=== PATIENT | male | born 1945 | race Caucasian/White ===

== ENCOUNTER → 2016-08-27 | Outpatient (CLI) | payer OTHER ==
[~2016-08-27] MED LIST: FINA5TAB4 PO; MOME200A INH; MONT1TAB3 PO; RABE20TA5 PO; RANI300T2 PO; TAMS0.4C38 PO; [UNRECOGNIZED DRUG - CODE] PO
== END | disposition home or self-care (01) ==
LOC: C.LAB1850 11:45
PROVIDERS: ATTEND Internal Medicine Pulmonary Disease
DX: J47.9 Bronchiectasis, uncomplicated (principal)

== ENCOUNTER 2017-03-23 13:04 | Emergency (ER) | payer OTHER ==
[~2017-03-23] VITALS: Ht 190.5 cm; Wt 114.0 kg
[2017-03-23 13:08] VITALS: BP 150/74; PULSE 98; TEMP 36.6; O2SAT 97; Ht 190.5 cm; Wt 114.0 kg
--- NOTE | 2017-03-23 14:51 | EMERGENCY ROOM VISIT NOTE ---
ED Visit Note First contact with patient: 13:23 Chief Complaint: I cut my left little finger. History of Present Illness: Mr. Hartman is a 71-year-old white male who ambulates into the ED complaining of a left little finger laceration. Patient reports approximately one hour ago he was cutting an apple with a kitchen knife and accidentally cut the palmar aspect of the left little finger. He reports he control bleeding and went to the local [facility] and was told he needed to come the emergency department for further evaluation and care. Associated with his laceration patient reports a mild stinging sensation over the laceration. He rates his discomfort 2/10. The pain is nonradiating. Pain worsens with palpation. He has not identified any alleviating factors related to the pain. He has not taken any medications for pain prior to arrival at the hospital. Associated with his symptoms he reports he has a mild tingling sensation within the finger. He denies any finger weakness. Review of Systems: As noted above in history of present illness. Past Medical History: (1) Asthma, Unspecified (2) Bronchitis (3) Esophageal Reflux (4) Ulcerative colitis (5) Urethral Stricture Nos Surgical Problems: (1) History of bronchoscopy Current Medications: Medications Dose Route/Sig Max Daily Dose Days Date Category Probiotic/Prebiotic (Bacillus Coagulans-Inulin) 1 Cap Cap 1 Cap PO DAILY 04/24/15 Reported Zantac (Ranitidine HCl) 300 Mg Tab 300 Mg PO HS 04/24/15 Reported Dulera 200/5 Mcg (Mometasone Furoate-Formoterol) 1 Aer Aer 2 Puffs INH BID 07/06/14 Reported Proscar (Finasteride) 5 Mg Tab 5 Mg PO DAILY 07/06/14 Reported Singulair (Montelukast Sodium) 10 Mg Tab 10 Mg PO DAILY 07/06/14 Reported Aciphex (Rabeprazole Sodium) 20 Mg Tab 20 Mg PO DAILYBB 07/06/14 Reported Flomax (Tamsulosin Hcl) 0.4 Mg Cap 0.4 Mg PO HS 07/06/14 Reported Allergies to Medications: Omeprazole. Social History: Patient is currently retired; he feels safe in his home environment; he denies tobacco use. Tetanus Immunization Status: Patient reports up-to-date. Physical Examination: Vital Signs: Date Time Temp Pulse Resp B/P (MAP) Pulse Ox O2 Delivery O2 Flow Rate FiO2 03/23/17 13:08 36.6 98 20 150/74 97 Room Air GENERAL: 71-year-old male in no acute distress, nontoxic-appearing, afebrile and hemodynamically stable. NEUROLOGICAL: Awake, alert and oriented to person, place and time. Answering questions appropriately and following commands. SKIN: Warm, dry and pink. Left Little Finger: Patient has 3 small superficial laceration over the palmar asses of the finger measuring approximately 3.6 cm. Minimal active bleeding. LEFT LITTLE FINGER: Soft tissue injury as noted above. No gross bony deformity. No tenderness over the MCP, PIP and DIP joint. Full range of motion and muscle strength in the MCP, PIP and DIP joint against resistance. Throughout the finger the skin was warm and pink and capillary refill is brisk. He was able to the stinger slight sensations to all dermatomes of the finger. ED Course: Patient is assessed as noted above. Wound Repair: Complexity: Basic Verbal consent was obtained after the risks and benefits were explained. The skin was prepped with betadine and a sterile field set. The wound was explored for foreign bodies and none found. Copious irrigation was performed using sterile saline. With direct pressure the bleeding subsided. Debridement was not performed. The wound edges were approximated using Steri-Strips Hemostasis and excellent approximation was achieved. Sterile dressing applied. No complications and the patient tolerated the procedure well. Patient was educated about tonight's findings and instructed on his treatment plan; he verbalizes understanding and agreement with this plan. Clinical Impression: Laceration of the left little finger. Disposition: Patient discharged home in stable condition; prior to departure he was reassessed and subjectively reported he was pain-free. Plan: Comfort measures, wound care and signs of infection were discussed with the patient. Patient was encouraged to follow-up with PCP or return to the ED for any signs of infection or any new/concerning symptoms.
== END 2017-03-23 14:04 | disposition home or self-care (01) ==
LOC: C.EDB 13:06 → C.EDD 14:04
DX: S61.217A Laceration without foreign body of left little finger without damage to nail, initial encounter (principal); W26.0XXA Contact with knife, initial encounter

== ENCOUNTER 2023-09-25 15:51 | Inpatient (IN) ==
[2023-09-25 16:36] LABS: Basophils # (auto) 0.02 K/uL (0.00-0.20); Basophils % (auto) 0.2 %; Eosinophils # (auto) 0.04 K/uL (0.00-0.50); Eosinophils % (auto) 0.3 %; Hematocrit (blood only) 45.8 % (42.0-52.0); Hemoglobin 15.9 g/dl (14.0-18.0); Immature Granulocytes # (auto) 0.05 K/uL (0.01-0.20); Immature Granulocytes % (auto) 0.4 %; Lymphocytes # (auto) 1.52 K/uL (1.20-3.40); Lymphocytes % (auto) 12.8 %; Mean Corpuscular Hemoglobin 30.9 pg (25.0-34.0); Mean Corpuscular Hgb Conc 34.7 g/dL (32.0-36.0); Mean Corpuscular Volume 88.9 fL (80.0-100.0); Mean Platelet Volume 9.8 fL (9.4-12.4); Monocytes # (auto) 1.21 K/uL (0.11-0.59); Monocytes % (auto) 10.2 %; Neutrophils # (auto) 9.08 K/uL (1.40-6.50); Neutrophils % (auto) 76.1 %; Platelet Count 208 K/uL (130-400); RDW Coefficient of Variation 12.9 % (11.5-14.5); RDW Standard Deviation 42.3 fL (36.4-46.3); Red Blood Count 5.15 M/uL (4.70-6.10); White Blood Count 11.92 K/ul (4.8-10.8)
--- NOTE | 2023-09-25 16:42 | Electrocardiogram Report ---
Test Reason : Blood Pressure : / mmHG Vent. Rate : 084 BPM Atrial Rate : 084 BPM P-R Int : 154 ms QRS Dur : 094 ms QT Int : 368 ms P-R-T Axes : 073 085 066 degrees QTc Int : 434 ms Normal sinus rhythm Normal ECG When compared with ECG of 29-AUG-2022 10:06, No significant change was found Confirmed by Romel Fair ([id number]) on 09/25/2023 4:41:55 PM Referred By: Confirmed By:Romel Fair
[2023-09-25 16:57] LABS: Albumin Globulin Ratio 1.3 (0.9-2); Albumin Level 4.3 gm/dl (3.4-5.0); BUN Creatinine Ratio 25.9 (10-20); Bilirubin,Total 0.7 mg/dl (0.2-1.0); Calcium 9.2 mg/dl (8.6-10.3); Creatinine Clr Calc Pharmacy 94.1 ml/min; Est GFR (African American) 100.8 ml/min; Est GFR (Non-African American) 86.9 ml/min; Globulin 3.3 gm/dl (2.5-4.0); Magnesium 2.1 mg/dl (1.7-2.4); Potassium 4.4 mmol/L (3.5-5.1); Total Protein 7.6 gm/dl (6.0-8.3)
[2023-09-25 17:02] LABS: Troponin I High Sensitivity 7.8 pg/ml (0-20)
[2023-09-25 17:16] LABS: Partial Thromboplastin Time 26 Seconds (21-31); Prothrombin Time 10.8 Seconds (9.0-12.0)
--- NOTE | 2023-09-25 17:54 | Emergency Department Note ---
History of Present Illness General Chief complaint: Urinary Symptoms Stated complaint: UTI, NEEDS DIFFERENT MEDS/NOT WORKING, DOC REF Time Seen by Provider: 09/25/23 17:53 History of Present Illness Maximum Pain Intensity: 6 NAME: HARIS HERNANDEZ AGE: 77 SEX: M : 1945 ARRIVES VIA: Walk-In INFORMANT: Patient ED PROVIDER(S): THOMAS Bai, Domenico Crawford MD The patient is a 77-year-old male who arrives to the emergency department for evaluation of urinary tract infection with pseudomonal growth. The patient was contacted by the emergency department pharmacist, to return to the emergency department for IV antibiotic treatment and admission. The patient arrived, and was placed in a room for assessment and workup. The patient also has an indwelling Ramires catheter, and notes some hematuria after the Ramires catheter bag was placed to low on his leg causing slight trauma to the urinary tract. The patient denies pain, however he notes some bleeding from the urinary meatus. He denies fever, or other signs of infection. Home Medications Medication Instructions Recorded Confirmed Type finasteride 5 mg tablet 5 mg PO QAM 07/21/19 09/25/23 History montelukast 10 mg tablet 10 mg PO QAM 07/21/19 09/25/23 History tamsulosin 0.4 mg capsule 0.4 mg PO QPM 07/21/19 09/25/23 History mometasone-formoterol HFA 200 1 puff inhalation BID PRN 08/07/20 09/25/23 History mcg-5 mcg/actuation aerosol inhaler Shortness Of Breath Or Wheezing [id number]-thumidhn-yanqcoem 1 drp ophthalmic (eye) TID PRN Dry 08/29/22 09/25/23 History 80 0.5 %-1 %-0.5 % eye drops Eyes vit C 250 mg-E 90 mg-zinc 40 1 tab PO BID 08/29/22 09/25/23 History mg-copper 1 [id number]-[id number] chew tablet (PreserVision AREDS-2) acetaminophen 500 mg tablet 1,000 mg PO Q8H PRN Pain 09/09/23 09/25/23 History Allergies Allergy/AdvReac Type Severity Reaction Status Date / Time celecoxib [From Celebrex] AdvReac Intermediate Diarrhea Verified 09/25/23 18:43 duloxetine AdvReac Intermediate Chest Verified 09/25/23 18:43 tightness, diarrhea gabapentin AdvReac Intermediate dried out Verified 09/25/23 18:43 tear ducts omeprazole AdvReac Intermediate constipatio Verified 09/25/23 18:43 n pregabalin [From Lyrica] AdvReac Intermediate dried out Verified 09/25/23 18:43 tear ducts sulfamethoxazole AdvReac Intermediate constipatio Verified 09/25/23 18:43 [From Bactrim] n trimethoprim [From Bactrim] AdvReac Intermediate constipatio Verified 09/25/23 18:43 n Goat Milk Allergy Severe ANAPHYLAXIS Uncoded 09/25/23 18:43 Past Med/Surg History Problem List (Updated 09/25/23 @ 21:53 by THOMAS Ochoa) Acute urinary retention (Acute) Bladder outlet obstruction (Acute) Abnormal CT scan of lung Urinary tract infection (Acute) Urinary retention (Acute) Urethral stricture (Acute) Constipation (Acute) Complication of catheter (Acute) Complication of catheter (Acute) Back strain (Acute) Back pain (Acute) BPH (benign prostatic hypertrophy) (Acute) Abdominal pain (Acute) Medical History Hx of colonic polyp History of urinary retention 2015, prior to his TURP procedure History of herniated intervertebral disc no sx, therapy only Hx of bronchitis hx ~2009, given his inhaler at this time, has not used since he has bronchitis Macular degeneration Hx of ulcerative colitis no since BPH (benign prostatic hyperplasia) Osteoarthritis History of allergic rhinitis Surgical History Hx of colonoscopy Hx of eye surgery left eye, for "lazy" eye History of bronchoscopy back in the ; for a foreign body in his lungs S/P [facility]P 2015, [facility], tendon reattachment surgery History of dilation of urethra (~2000) Family History Father Cerebral infarction due to occlusion of cerebellar artery Social History Smoking Status: Unknown if ever smoked Second Hand Exposure: No; Do You Dip or Chew Tobacco: No; Hx Alcohol Use: Yes Hx Substance Use: No Preferred Language: Divehi Communication Ability: Effective Retail Sales Teammate Required: No Beliefs That Will Affect Care: None marital status: Current Living Situation: Spouse current occupational status: retired Feels Safe at Home: Yes Assistive Devices: Brace/Splint/Immobilizer and Glasses Physical Exam Vital Signs Vital Signs - 24 hr 09/25/23 15:53 09/25/23 19:09 09/25/23 19:12 Temperature 36.3 C L 36.6 C Temperature Source Oral Oral Pulse Rate 91 H 77 Pulse Rate [Apical] 72 Pulse Rhythm [Apical] Regular Pulse Strength [Apical] Normal Respiratory Rate 19 18 Respiratory Effort / Characteristics Non-Labored Spontaneous Non-Labored Spontaneous Respiratory Depth Normal Normal Respiratory Pattern Regular Blood Pressure 126/83 Blood Pressure [Left Arm] 153/89 H Blood Pressure Mean 97 Blood Pressure Mean [Left Arm] 110 Pulse Oximetry 97 98 Oxygen Delivery Method Room Air Room Air Sepsis Recent Fever Within 48 Hours No Sepsis New/Unexplained Change in Mental Status N/A Sepsis Action Taken by Nursing No Action Required VITALS: Vitals are noted on the nurse's note and reviewed by myself. Vital signs stable. GENERAL: 77-year-old male, in no acute distress, nondiaphoretic, well-developed well-nourished. SKIN: The skin was without rashes, erythema, edema, or bruising. HEAD: Normocephalic atraumatic. HEART: Regular rate and rhythm without murmurs gallops or rubs. LUNGS: Clear to auscultation bilaterally without wheezes, rales or rhonchi. No retractions or accessory muscle use. ABDOMEN: Positive bowel sounds x 4. Soft, nontender, without masses or organomegaly. Martinez sign negative. No guarding or rebound tenderness. Indwelling Ramires catheter, blood crusting surrounding the urine meatus. MUSCULOSKELETAL: No muscle atrophy, erythema, or edema noted. Full range of motion without joint tenderness in all extremities. No tenderness to palpation. Normal gait. Strength 5/5 throughout. NEURO: Patient was alert and oriented to person place and time. No focal neurological deficits. Course Administered Medications Meropenem 500 mg/ Syringe 10 mls @ 2 mls/min IV Q8H [facility]; Protocol Stop: 09/27/23 18:29 Last Admin: 09/25/23 20:03 Dose: 2 mls/min Documented By: PATRIC Discontinued Medications Ciprofloxacin (Cipro / D5w) 400 mg in 200 mls @ 100 mls/hr IV NOW STA; Protocol Stop: 09/25/23 19:53 Last Admin: 09/25/23 18:45 Dose: Not Given Documented By: TASHA Medical Decision Making Differential Diagnosis Urinary tract infection, hematuria, trauma, abscess, as well as other pathologies. Medical Records Attestation: I reviewed the patient's medical records. Home Medications Current Medication List: was personally reviewed by me Laboratory Data Attestation: I reviewed the patient's lab results. Leukocytosis 11.9 to, stable hemoglobin and hematocrit, no electrolyte abnormalities, urinalysis shows a positive for infection with culture growing Pseudomonas. 09/25/23 16:09 09/25/23 16:09 Lab Results 09/25/23 Range/Units 16:09 WBC 11.92 H (4.8-10.8) K/ul RBC 5.15 (4.70-6.10) M/uL Hgb 15.9 (14.0-18.0) g/dl Hct 45.8 (42.0-52.0) % MCV 88.9 (80.0-100.0) fL MCH 30.9 (25.0-34.0) pg MCHC 34.7 (32.0-36.0) g/dL RDW Std Deviation 42.3 (36.4-46.3) fL RDW Coeff of Maddy 12.9 (11.5-14.5) % Plt Count 208 (130-400) K/uL MPV 9.8 (9.4-12.4) fL Immature Gran % (Auto) 0.4 % Neut % (Auto) 76.1 % Lymph % (Auto) 12.8 % Stark % (Auto) 10.2 % Eos % (Auto) 0.3 % Baso % (Auto) 0.2 % Neut # (Auto) 9.08 H (1.40-6.50) K/uL Lymph # (Auto) 1.52 (1.20-3.40) K/uL Stark # (Auto) 1.21 H (0.11-0.59) K/uL Eos # (Auto) 0.04 (0.00-0.50) K/uL Baso # (Auto) 0.02 (0.00-0.20) K/uL Immature Gran # (Auto) 0.05 (0.01-0.20) K/uL PT 10.8 (9.0-12.0) Seconds INR 1.0 (0.9-1.1) APTT 26 (21-31) Seconds PTT Ratio 1.0 Sodium 134 L (136-145) mmol/L Potassium 4.4 (3.5-5.1) mmol/L Chloride 105 (98-107) mmol/L Carbon Dioxide 21 (21-32) mmol/L Anion Gap 8 (3-11) BUN 21 (6-23) mg/dl Creatinine 0.81 (0.6-1.4) mg/dl Est Cr Clr Drug Dosing 94.1 ml/min Est GFR ( Amer) 100.8 ml/min Est GFR (Non-Af Amer) 86.9 ml/min BUN/Creatinine Ratio 25.9 H (10-20) Glucose 92 (70-99(Fasting)) mg/dl Lactate 1.1 (0.4-2.0) mmol/L Calcium 9.2 (8.6-10.3) mg/dl Magnesium 2.1 (1.7-2.4) mg/dl Total Bilirubin 0.7 (0.2-1.0) mg/dl AST 16 (13-39) U/L ALT 15 (7-52) U/L Alkaline Phosphatase 66 (34-104) U/L Troponin I High Sens 7.8 (0-20) pg/ml Total Protein 7.6 (6.0-8.3) gm/dl Albumin 4.3 (3.4-5.0) gm/dl Globulin 3.3 (2.5-4.0) gm/dl Albumin/Globulin Ratio 1.3 (0.9-2) Procalcitonin 0.04 (0-0.5) ng/ml MDM Narrative The patient is a 77-year-old male who arrives to the emergency department for the above-stated complaint. Upon examination the patient is mildly confused about the process for admission to the hospital. I reassured the patient he returns to the right reason and would need hospital admission for the pseudomonal infection in his urine. Lab work was obtained prior to my assessment, which showed leukocytosis of 11.92, stable hemoglobin and hematocrit, no electrolyte abnormalities. Orders were placed for Ramires catheter irrigation, as well as IV antibiotics. I spoke with case management regarding admission, they facilitated contact with the [facility] hospitalist group. Dr. Ovalle agreed to accept the patient, and recommended meropenem for a IV antibiotic treatment. Please refer to Dr. Ovalle's documentation for further patient care. The patient's case was discussed with Dr. Crawford, who agreed with my evaluation and treatment plan. Impression & Plan Complication of catheter, Urinary tract infection Discharge Plan Visit Data Chief Complaint: Urinary Symptoms Stated Complaint: UTI, NEEDS DIFFERENT MEDS/NOT WORKING, DOC REF ED Provider: Domenico Crawford ED Midlevel Provider: Josephine Myles Discharge Problem: Complication of catheter, Urinary tract infection Patient Disposition: Admitted As Inpatient Discharge Instructions Interventions: ED Discharge Assessment Last Done: 09/25/23 20:26 Forms Stand Alone Forms: My [facility]epron Prescriptions Prescriptions: No Action montelukast 10 mg tablet 10 mg PO QAM finasteride 5 mg tablet 5 mg PO QAM tamsulosin 0.4 mg capsule 0.4 mg PO QPM Patient Comments: takes after dinner mometasone-formoterol 200-5 mcg/actuation HFA aerosol inhaler 1 puff INH BID PRN (Reason: Shortness Of Breath Or Wheezing) [id number] 0.5-1-0.5 % Drops 1 drp OPHTHALMIC (EYE) TID PRN (Reason: Dry Eyes) PreserVision AREDS-2 250-90-40-1 mg Tablet,Chewable 1 tab PO BID acetaminophen 500 mg tablet 1,000 mg PO Q8H PRN (Reason: Pain) Referrals Referrals: John Calderon DO [Primary Care Provider] - Discharge Problem: Complication of catheter Qualifiers: Encounter type: initial encounter Qualified Code(s): T85.9XXA - Unspecified complication of internal prosthetic device, implant and graft, initial encounter Urinary tract infection Qualifiers: Urinary tract infection type: site unspecified Hematuria presence: with hematuria Qualified Code(s): N39.0 - Urinary tract infection, site not specified ; R31.9 - Hematuria, unspecified
[2023-09-25] MEDS: CIPROFLOXACIN / D5W 400 MG/200 ML BAG IV STA (18:45)
--- NOTE | 2023-09-25 18:54 | Emergency Department Note ---
ED Visit Note I was consulted by the Advanced Practice Provider. I personally made/approved the management plan and take responsibility for the patient management. I performed a substantive portion of the visit. This includes the aspects of: -History/Physical -MDM .
--- NOTE | 2023-09-25 19:30 | History & Physical Report ---
Date of Service September 25, 2023 Assessment & Plan (1) Urinary tract infection: Plan 77-year-old male with history of BPH, status post TURP, urethral stricture, polyneuropathy, etc. presenting with Pseudomonas UTI. Urinary tract infection, Pseudomonas, in the setting of urinary retention, BPH, history of urethral stricture Status Ramires catheter placement 09/22 For urinary retention Urine culture On the same day 09/22: Positive for Pseudomonas, sensitive to meropenem, intermediate to fluoroquinolones Blood cultures obtained today: Pending Continue IV meropenem Will likely at least 10 days of IV antibiotic, pending blood cultures Continue Ramires catheter placed on September 22, plan for removal on Thursday, if patient is still in-house, will need urology consult at that point for removal of Ramires catheter and trial of voiding Continue with usual tamsulosin, finasteride Tinea Cruris Lotrimin BID x 10 days Hypertension No known history Likely secondary to stress Plan hydralazine for now Tinea cruris Nystatin cream Polyneuropathy Continue pregabalin DVT prophylaxis SCDs for now Disposition Lives at home History of Present Illness Primary Care Provider: John Calderon, 77-year-old male with history of BPH, status post TURP, urethral stricture, polyneuropathy, etc. presenting with Pseudomonas UTI. Patient presented to the ER [facility] 2 days ago, September 23, 2023 for difficulty with urination. He was found to have a postvoid residual of 500 and decision was made to place a Ramires catheter. There was difficulty with Ramires catheter placement, urologist was consulted, Ramires catheter finally placed and was advised to keep the Ramires catheter until Thursday. Urine cultures also obtained at that point and was prescribed with empiric p.o. Patient called in today as urine culture showed Pseudomonas which is intermediate to ciprofloxacin and levofloxacin. He was started on meropenem at the emergency room. On exam, patient seen resting in bed, sitting up, not in distress, very upset, frustrated, speaking loud voice, " everything was screwed since the beginning" "I have not taken my medications, I have not eaten all day" States he has not been feeling well for the past 3 days. No fevers or chills, no abdominal pain, flank pain, has chronic back pain. Has noted some blood clots in the Ramires catheter bag this morning. Reports itching in bilateral groin areas. No other symptoms. Explained laboratory findings, plan of care with patient in detail and at length-repeatedly. Answered all his questions as well. He is understanding and agreeable with the plan of care RN at the bedside during my exam and interview Patient's also updated over the phone. She verbalized understanding and agreement with the plan of care Allergies Allergy/AdvReac Type Severity Reaction Status Date / Time celecoxib [From Celebrex] AdvReac Intermediate Diarrhea Verified 09/25/23 18:43 duloxetine AdvReac Intermediate Chest Verified 09/25/23 18:43 tightness, diarrhea gabapentin AdvReac Intermediate dried out Verified 09/25/23 18:43 tear ducts omeprazole AdvReac Intermediate constipatio Verified 09/25/23 18:43 n pregabalin [From Lyrica] AdvReac Intermediate dried out Verified 09/25/23 18:43 tear ducts sulfamethoxazole AdvReac Intermediate constipatio Verified 09/25/23 18:43 [From Bactrim] n trimethoprim [From Bactrim] AdvReac Intermediate constipatio Verified 09/25/23 18:43 n Goat Milk Allergy Severe ANAPHYLAXIS Uncoded 09/25/23 18:43 Home Medications Medication Instructions Recorded Confirmed Type finasteride 5 mg tablet 5 mg PO QAM 07/21/19 09/25/23 History montelukast 10 mg tablet 10 mg PO QAM 07/21/19 09/25/23 History tamsulosin 0.4 mg capsule 0.4 mg PO QPM 07/21/19 09/25/23 History mometasone-formoterol HFA 200 1 puff inhalation BID PRN 08/07/20 09/25/23 History mcg-5 mcg/actuation aerosol inhaler Shortness Of Breath Or Wheezing [id number]-enmdocai-dqxhzrsx 1 drp ophthalmic (eye) TID PRN Dry 08/29/22 09/25/23 History 80 0.5 %-1 %-0.5 % eye drops Eyes vit C 250 mg-E 90 mg-zinc 40 1 tab PO BID 08/29/22 09/25/23 History mg-copper 1 ls-xejldv-vckldu chew tablet (PreserVision AREDS-2) acetaminophen 500 mg tablet 1,000 mg PO Q8H PRN Pain 09/09/23 09/25/23 History Past Med/Surg History Problem List (Updated 09/23/23 @ 17:27 by Robb Stafford MD) Acute urinary retention (Acute) Bladder outlet obstruction (Acute) Abnormal CT scan of lung Urinary tract infection (Acute) Urinary retention (Acute) Urethral stricture (Acute) Constipation (Acute) Complication of catheter (Acute) Complication of catheter (Acute) Back strain (Acute) Back pain (Acute) BPH (benign prostatic hypertrophy) (Acute) Abdominal pain (Acute) Medical History Hx of colonic polyp History of urinary retention 2015, prior to his TURP procedure History of herniated intervertebral disc no sx, therapy only Hx of bronchitis hx ~2009, given his inhaler at this time, has not used since he has bronchitis Macular degeneration Hx of ulcerative colitis no since BPH (benign prostatic hyperplasia) Osteoarthritis History of allergic rhinitis Surgical History Hx of colonoscopy Hx of eye surgery left eye, for "lazy" eye History of bronchoscopy back in the ; for a foreign body in his lungs S/P [facility]P 2015, [facility], tendon reattachment surgery History of dilation of urethra (~2000) Family History Father Cerebral infarction due to occlusion of cerebellar artery Social History (Updated 07/11/23 @ 10:23 by Doc Doran PA-C) Smoking Status: Unknown if ever smoked Second Hand Exposure: No; Do You Dip or Chew Tobacco: No; Hx Alcohol Use: Yes Hx Substance Use: No Preferred Language: Kyrgyz Communication Ability: Effective Blue Split Trimmer Required: No Beliefs That Will Affect Care: None marital status: Current Living Situation: Spouse current occupational status: retired Feels Safe at Home: Yes Assistive Devices: Brace/Splint/Immobilizer and Glasses Review of Systems Review of Systems: all noted and negative except for above Physical Exam Physical Exam: General- oriented x 3, not in distress, speaks in sentences with no effort or accessory muscle use Eyes- anicteric Neck- no JVD Lungs- clear breath sounds bilaterally, no rales/wheezes Heart- normal rate, regular rhythm; no murmurs Abdomen- normal bowel sounds, nondistended, soft, nontender Ramires catheter in place-draining yellow urine Positive erythema bilateral inguinal area Extremities- no pretibial edema, no calf tenderness Neuro- alert, oriented x 3; no gross focal neurologic deficits Skin- warm & dry Results & Data Results & Data Vital Signs (Past 12 Hours) Vital Signs Temp Pulse Pulse Resp BP BP Pulse Ox 09/25/23 19:12 77 09/25/23 19:09 36.6 C 72 18 153/89 H 98 09/25/23 15:53 36.3 C L 91 H 19 126/83 97 O2 Del Method 09/25/23 19:12 09/25/23 19:09 Room Air 09/25/23 15:53 Room Air all noted and reviewed including below Code Status & VTE Plan VTE Prophylaxis Plan VTE Prophylaxis will be ordered: Yes (1) Urinary tract infection Hematuria presence: with hematuria Urinary tract infection type: acute cystitis Qualified Code(s): N30.01 - Acute cystitis with hematuria
[2023-09-25] MEDS ORDERED: ARTIFICIAL TEARS OP PRN (19:34)
[2023-09-25] MEDS: MEROPENEM 500 MG in SYRINGE 0 ML IV SCH (20:03)
[2023-09-25] MEDS ORDERED: NON-FORMULARY PATIENT'S OWN MED SCH (21:15)
[2023-09-25] MEDS ORDERED: PROMETHAZINE HCL 12.5 MG in SODIUM CHLORIDE 0.9% 50 ML IV PRN (22:14)
[2023-09-25] MEDS: CEROVITE ADV FORMULA TAB PO SCH (22:31)
[2023-09-25] MEDS: CLOTRIMAZOLE 1% CR 15 GM TUBE EXT SCH (22:31)
[2023-09-25] MEDS ORDERED: POLYETHYLENE (MIRALAX) 17 GM PACK PO PRN (22:51)
[2023-09-25] MEDS: FINASTERIDE 5 MG TAB PO ONE (23:18)
[2023-09-25] MEDS: MONTELUKAST SODIUM 10 MG TABLET PO ONE (23:18)
[2023-09-25] MEDS: TAMSULOSIN HCL 0.4 MG CAP PO SCH (23:18)
[2023-09-25] MEDS: SODIUM CHLORIDE 0.9% 1,000 ML IV SCH (23:19)
[2023-09-25] MEDS: DOCUSATE SODIUM/SENNA 50/8.6MG TAB PO SCH (23:44)
[2023-09-25] MEDS: POLYETHYLENE (MIRALAX) 17 GM PACK PO STA (23:44)
[2023-09-25 23:53] LABS: Appearance Urine Clear (Clear); Bacteria Urine Automated None Seen (None Seen); Bilirubin Urine Negative (Negative); Blood Urine 3+ (Negative); Cast Urine Automated 0-2 /lpf (0-2); Color Urine Yellow; Epithelial Cell Urine Auto 0-2 /hpf (0-2); Glucose Urine UA Negative (Negative); Ketones Urine Trace (Negative); Leukocyte Esterase Urine Trace (Negative); Nitrite Urine Negative (Negative); Protein Urine Negative (Negative); RBC Urine Automated 0-2 /hpf (0-2); Specific Gravity Urine 1.006 (1.000-1.030); Urobilinogen Urine Negative (Negative); WBC Urine Automated 0-5 /hpf (0-5); pH Urine 6.5 (4.5-7.5)
[2023-09-26] MEDS: MEROPENEM 500 MG in SYRINGE 0 ML IV SCH (01:40)
[2023-09-26 06:48] LABS: Calcium 8.6 mg/dl (8.6-10.3); Potassium 4.5 mmol/L (3.5-5.1)
[2023-09-26 06:53] LABS: BUN Creatinine Ratio 23.9 (10-20); Creatinine Clr Calc Pharmacy 113.9 ml/min; Est GFR (African American) 108.9 ml/min
[2023-09-26 07:08] LABS: Basophils # (auto) 0.03 K/uL (0.00-0.20); Basophils % (auto) 0.4 %; Eosinophils # (auto) 0.13 K/uL (0.00-0.50); Eosinophils % (auto) 1.7 %; Hemoglobin 14.5 g/dl (14.0-18.0); Immature Granulocytes # (auto) 0.05 K/uL (0.01-0.20); Immature Granulocytes % (auto) 0.7 %; Lymphocytes # (auto) 1.44 K/uL (1.20-3.40); Lymphocytes % (auto) 18.8 %; Mean Corpuscular Hemoglobin 30.4 pg (25.0-34.0); Mean Corpuscular Hgb Conc 33.7 g/dL (32.0-36.0); Mean Corpuscular Volume 90.1 fL (80.0-100.0); Mean Platelet Volume 10.7 fL (9.4-12.4); Monocytes # (auto) 1.06 K/uL (0.11-0.59); Monocytes % (auto) 13.8 %; Neutrophils # (auto) 4.95 K/uL (1.40-6.50); Neutrophils % (auto) 64.6 %; Platelet Count 175 K/uL (130-400); RDW Standard Deviation 42.7 fL (36.4-46.3); Red Blood Count 4.77 M/uL (4.70-6.10); White Blood Count 7.66 K/ul (4.8-10.8)
[2023-09-26] MEDS ORDERED: FLUTICASONE/VILANTEROL 100/25MCG 14 PUFFS/INHALER INH SCH (09:00)
[2023-09-26] MEDS: FINASTERIDE 5 MG TAB PO SCH (09:02)
[2023-09-26] MEDS: MONTELUKAST SODIUM 10 MG TABLET PO SCH (09:02)
[2023-09-26] MEDS: PRESERVISION PO SCH (09:40)
[2023-09-26] MEDS: ARTIFICIAL TEARS OP SCH (09:40)
--- NOTE | 2023-09-26 16:02 | Hospitalist Progress Note ---
Date of Service September 26, 2023 Assessment & Plan (1) Urinary tract infection: Plan 77-year-old male with history of BPH, status post TURP, urethral stricture, polyneuropathy, etc. presenting with Pseudomonas UTI. Complicated urinary tract infection Urinary retention H/O BPH, TURP, urethral stricture --Urine culture growing Pseudomonas --Blood culture pending Continue IV meropenem Continue Ramires catheter Scheduled to follow-up with urology as outpatient for voiding trial on Thursday Continue tamsulosin, finasteride Tinea Cruris continue Lotrimin BID Hypertension No known history Likely situational Blood pressure mildly elevated Monitor BP Will consider adding antihypertensives if remains persistently elevated Polyneuropathy Continue pregabalin DVT Px: SCDs for now Disposition PT/OT prior to discharge Admission and Anticipated Discharge Date Admission Date: September 25, 2023 Subjective Patient is seen and examined at bedside I feel "rotted" Had multiple complaints Denies chest pain, dyspnea Blood cultures pending Review of Systems Review of Systems: All systems reviewed & are unremarkable except as noted in Subjective Physical Exam Physical Exam: Physical Exam: Vitals signs as noted above General Appearance:Moderately built and nourished, no apparent distress Head: normocephalic, Atraumatic Eyes: normal inspection, EOMI Neck: supple, Trachea midline Respiratory/Chest: Normal breath sounds, CTA, No accessory muscle use Cardiovascular: S1, S2, No murmur Abdomen/GI:Soft, Non tender, Bowel sounds present Extremities/Musculoskeletal:normal inspection, no edema : B/L groin rash Neurologic/Psych:AAOX3, grossly no focal neurological deficits Skin: normal color, warm Results & Data Results & Data Vital Signs (Past 12 Hours) Vital Signs Temp Pulse Resp BP BP Pulse Ox O2 Del Method 09/26/23 14:41 36.6 C 70 18 142/73 H 97 Room Air 09/26/23 08:14 36.5 C 72 16 177/88 H 98 Room Air Laboratory Results Short CBC 09/25/23 09/26/23 Range/Units 16:09 05:31 WBC 11.92 H 7.66 (4.8-10.8) K/ul Hgb 15.9 14.5 (14.0-18.0) g/dl Hct 45.8 43.0 (42.0-52.0) % Plt Count 208 175 (130-400) K/uL BMP 09/25/23 09/26/23 16:09 05:31 Sodium 134 L 138 Potassium 4.4 4.5 Chloride 105 108 H Carbon Dioxide 21 23 BUN 21 16 Creatinine 0.81 0.67 Glucose 92 83 Calcium 9.2 8.6 Liver Function 09/25/23 Range/Units 16:09 Total Bilirubin 0.7 (0.2-1.0) mg/dl AST 16 (13-39) U/L ALT 15 (7-52) U/L Alkaline Phosphatase 66 (34-104) U/L Albumin 4.3 (3.4-5.0) gm/dl Urine 09/25/23 Range/Units 23:30 Urine Color Yellow Urine Appearance Clear (Clear) Urine pH 6.5 (4.5-7.5) Ur Specific [place] 1.006 (1.000-1.030) Urine Protein Negative (Negative) Urine Glucose (UA) Negative (Negative) (1) Urinary tract infection Hematuria presence: with hematuria Urinary tract infection type: site unspe cified Qualified Code(s): N39.0 - Urinary tract infection, site not specified; R31.9 - Hematuria, unspecified
[2023-09-27 06:16] LABS: Hematocrit (blood only) 44.4 % (42.0-52.0); Hemoglobin 14.8 g/dl (14.0-18.0); Mean Corpuscular Hgb Conc 33.3 g/dL (32.0-36.0); Mean Corpuscular Volume 90.1 fL (80.0-100.0); Mean Platelet Volume 9.9 fL (9.4-12.4); Platelet Count 185 K/uL (130-400); RDW Coefficient of Variation 13.2 % (11.5-14.5); RDW Standard Deviation 43.2 fL (36.4-46.3); Red Blood Count 4.93 M/uL (4.70-6.10)
[2023-09-27 06:45] LABS: BUN Creatinine Ratio 21.3 (10-20); Calcium 8.4 mg/dl (8.6-10.3); Creatinine Clr Calc Pharmacy 95.4 ml/min; Est GFR (African American) 101.3 ml/min; Est GFR (Non-African American) 87.4 ml/min; Potassium 4.2 mmol/L (3.5-5.1)
[2023-09-27] MEDS: ACETAMINOPHEN 500 MG TAB PO PRN (07:55)
--- NOTE | 2023-09-27 16:27 | Hospitalist Progress Note ---
Date of Service September 27, 2023 Assessment & Plan (1) Urinary tract infection: Plan 77-year-old male with history of BPH, status post TURP, urethral stricture, polyneuropathy, etc. presenting with Pseudomonas UTI. Complicated urinary tract infection Urinary retention H/O BPH, TURP, urethral stricture --Urine culture grew Pseudomonas --Blood culture negative to date Continue IV meropenem Continue Ramires catheter Scheduled to follow-up with urology as outpatient for voiding trial on Thursday Continue tamsulosin, finasteride Will consider to perform voiding trial tomorrow Will need ultrasound-guided IV line for IV antibiotics on discharge Tinea Cruris continue Lotrimin BID Hypertension No known history Likely situational Monitor BP Blood pressure much better today Polyneuropathy Continue pregabalin DVT Px: SCDs for now Disposition PT/OT prior to discharge Admission and Anticipated Discharge Date Admission Date: September 25, 2023 Subjective Patient is seen and examined at bedside Sitting in chair during my encounter States having some right foot pain which is scheduled for surgery States feeling a lot better today Denies chest pain, dyspnea Review of Systems Review of Systems: All systems reviewed & are unremarkable except as noted in Subjective Physical Exam Physical Exam: Physical Exam: Vitals signs as noted above General Appearance:Moderately built and nourished, no apparent distress Head: normocephalic, Atraumatic Eyes: normal inspection, EOMI Neck: supple, Trachea midline Respiratory/Chest: Normal breath sounds, CTA, No accessory muscle use Cardiovascular: S1, S2, No murmur Abdomen/GI:Soft, Non tender, Bowel sounds present Extremities/Musculoskeletal:normal inspection, no edema : B/L groin rash Neurologic/Psych:AAOX3, grossly no focal neurological deficits Skin: normal color, warm Results & Data Results & Data Vital Signs (Past 12 Hours) Vital Signs Temp Pulse Resp BP Pulse Ox O2 Del Method 09/27/23 15:46 36.6 C 67 18 135/77 96 Room Air 09/27/23 07:44 36.4 C L 68 18 149/84 H 97 Room Air Laboratory Results Short CBC 09/27/23 Range/Units 05:55 WBC 8.30 (4.8-10.8) K/ul Hgb 14.8 (14.0-18.0) g/dl Hct 44.4 (42.0-52.0) % Plt Count 185 (130-400) K/uL BMP 09/27/23 05:55 Sodium 137 Potassium 4.2 Chloride 109 H Carbon Dioxide 23 BUN 17 Creatinine 0.80 Glucose 88 Calcium 8.4 L (1) Urinary tract infection Hematuria presence: with hematuria Urinary tract infection type: site unspecified Qualified Code(s): N39.0 - Urinary tract infection, site not specified; R31.9 - Hematuria, unspecified
[2023-09-28 07:02] LABS: Hematocrit (blood only) 43.7 % (42.0-52.0); Hemoglobin 14.9 g/dl (14.0-18.0); Mean Corpuscular Hemoglobin 30.5 pg (25.0-34.0); Mean Corpuscular Hgb Conc 34.1 g/dL (32.0-36.0); Mean Corpuscular Volume 89.4 fL (80.0-100.0); Platelet Count 199 K/uL (130-400); RDW Coefficient of Variation 12.8 % (11.5-14.5); RDW Standard Deviation 42.3 fL (36.4-46.3); Red Blood Count 4.89 M/uL (4.70-6.10); White Blood Count 8.21 K/ul (4.8-10.8)
[2023-09-28 07:37] LABS: BUN Creatinine Ratio 21.3 (10-20); Calcium 8.4 mg/dl (8.6-10.3); Creatinine Clr Calc Pharmacy 85.7 ml/min; Est GFR (African American) 96.9 ml/min; Est GFR (Non-African American) 83.6 ml/min; Potassium 4.2 mmol/L (3.5-5.1)
--- NOTE | 2023-09-28 10:53 | Urology Consultation ---
Date of Consultation September 28, 2023 Assessment & Plan (1) Acute urinary retention: (2) Urinary tract infection: (3) Urethral stricture: 77-year-old male with recent urinary retention and Ramires catheter placed by urology admitted for IV antibiotics for acute UTI. Patient is afebrile and hemodynamically stable Labs todayno leukocytosis, normal renal function He is on IV Zosyn for Pseudomonas UTI Ramires placed on 09/[address] Magana after cystoscopy and urethral dilation for bulbar urethral stricture Ramires patent and draining appropriately Recommend maintain Ramires catheter for now during treatment of acute UTI Continue with supportive care, antibiotics, and medical management per hospital medicine service Will reschedule outpatient voiding trial with our office for next week He can then follow-up with his established urologist, Dr. Dietz, for ongoing management of stricture will sign off, please contact our service with any additional questions or concerns History of Present Illness Attending Physician: Emory Yee MD History of Present Illness This is a 77-year-old male with a history of TURP who recently presented to the emergency department on 09/23/2023 for constipation and urinary retention. Urology was consulted for difficult Ramires catheter placement. Dr. Magana placed a 16 [place] catheter at bedside with cystoscope and after urethral dilation. He was discharged from the ED with Ciprofloxacin. Urine culture grew Pseudomonas, intermediate to ciprofloxacin and levofloxacin. Patient was contacted by the pharmacist to return to the emergency department for IV antibiotic treatment and admission. Urology is consulted for urinary retention. Patient was scheduled for outpatient voiding trial today. Labs todaycreatinine 0.89, WBC 8.21, hemoglobin 14.9. He was treated with meropenem upon arrival, now on IV Zosyn. Patient seen and examined at bedside. He is awake and resting in bed. Ramires is patent and draining appropriately. Denies fever or chills. He reports he is pending foot/ankle surgery this week. Allergies Allergy/AdvReac Type Severity Reaction Status Date / Time celecoxib [From Celebrex] AdvReac Intermediate Diarrhea Verified 09/25/23 18:43 duloxetine AdvReac Intermediate Chest Verified 09/25/23 18:43 tightness, diarrhea gabapentin AdvReac Intermediate dried out Verified 09/25/23 18:43 tear ducts omeprazole AdvReac Intermediate constipatio Verified 09/25/23 18:43 n pregabalin [From Lyrica] AdvReac Intermediate dried out Verified 09/25/23 18:43 tear ducts sulfamethoxazole AdvReac Intermediate constipatio Verified 09/25/23 18:43 [From Bactrim] n trimethoprim [From Bactrim] AdvReac Intermediate constipatio Verified 09/25/23 18:43 n Goat Milk Allergy Severe ANAPHYLAXIS Uncoded 09/25/23 18:43 Home Medications Medication Instructions Recorded Confirmed Type finasteride 5 mg tablet 5 mg PO QAM 07/21/19 09/25/23 History montelukast 10 mg tablet 10 mg PO QAM 07/21/19 09/25/23 History tamsulosin 0.4 mg capsule 0.4 mg PO QPM 07/21/19 09/25/23 History mometasone-formoterol HFA 200 1 puff inhalation BID PRN 08/07/20 09/25/23 History mcg-5 mcg/actuation aerosol inhaler Shortness Of Breath Or Wheezing uqjtyppwjfpoabzghpmtqv-iombrtfs-lciraauq 1 drp ophthalmic (eye) TID PRN Dry 08/29/22 09/25/23 History 80 0.5 %-1 %-0.5 % eye drops Eyes vit C 250 mg-E 90 mg-zinc 40 1 tab PO BID 08/29/22 09/25/23 History mg-copper 1 [id number] chew tablet (PreserVision AREDS-2) acetaminophen 500 mg tablet 1,000 mg PO Q8H PRN Pain 09/09/23 09/25/23 History Patient History Medical History Hx of colonic polyp History of urinary retention 2015, prior to his TURP procedure History of herniated intervertebral disc no sx, therapy only Hx of bronchitis hx ~2009, given his inhaler at this time, has not used since he has bronchitis Macular degeneration Hx of ulcerative colitis no since BPH (benign prostatic hyperplasia) Osteoarthritis History of allergic rhinitis Surgical History Hx of colonoscopy Hx of eye surgery left eye, for "lazy" eye History of bronchoscopy back in the ; for a foreign body in his lungs S/P TURP 2015, [facility] H/O knee surgery left, tendon reattachment surgery History of dilation of urethra (~2000) Family History Father Cerebral infarction due to occlusion of cerebellar artery Social History Smoking Status: Never smoker Second Hand Exposure: No; Do You Dip or Chew Tobacco: No; Hx Alcohol Use: Yes Hx Substance Use: No Preferred Language: Korean Communication Ability: Effective Communication Ability Comment: Difficulty finding words when upset Channel Manager Required: No Beliefs That Will Affect Care: None marital status: Current Living Situation: Spouse current occupational status: retired Feels Safe at Home: Yes Safety Concerns: Feels Safe At This Time Assistive Devices: Brace/Splint/Immobilizer and Glasses Review of Systems Review of Systems: All systems reviewed & are unremarkable except as noted in HPI & below Physical Exam Constitutional: well developed and well nourished; no acute distress Respiratory: normal respiratory effort; no respiratory distress and no labored breathing Gastrointestinal (Abdomen): Inspection/Auscultation: abdomen normal to inspection Musculoskeletal: Head/Neck/Chest: normocephalic Neurologic: moves all extremities and awake Psychiatric: Orientation: alert and oriented to person Genitourinary: Ramires patent and draining clear yellow urine Results & Data Vital Signs (Past 12 Hours) Vital Signs Temp Pulse Resp BP Pulse Ox O2 Del Method 09/28/23 06:56 36.4 C L 78 18 164/85 H 96 Room Air PG Care Time/CCT Total # of Minutes Spent Total Time Spent with Patient: Total time spent is greater than 50% in coordination of care (as documented) at patient's floor/unit and/or counseling patient: Coding Level of Care Code 42494 INT INP/OBS CARE 2/55MIN Diagnoses Acute urinary retention R33.8 Urinary tract infection N39.0; R31.9 Hematuria presence: with hematuria Urinary tract infection type: site unspecified Urethral stricture N35.9 (2) Urinary tract infection Hematuria presence: with hematuria Urinary tract infection type: site unspecified Qualified Code(s): N39.0 - Urinary tract infection, site not specified; R31.9 - Hematuria, unspecified
[2023-09-28] MEDS: LOSARTAN POTASSIUM 25 MG TAB PO SCH (11:14)
[2023-09-28] MEDS: ADVANCED PROBIOTIC 625 MG CAPSULE PO SCH (11:15)
[2023-09-28] MEDS: PIPER/TAZO 4.5g in D5W MINI-B 100 ML IV SCH (13:20)
--- NOTE | 2023-09-28 17:55 | Hospitalist Progress Note ---
Date of Service September 28, 2023 Assessment & Plan (1) Urinary tract infection: Plan 77-year-old male with history of BPH, status post TURP, urethral stricture, polyneuropathy, etc. presenting with Pseudomonas UTI. Complicated urinary tract infection Urinary retention H/O BPH, TURP, urethral stricture --Urine culture grew Pseudomonas --Blood culture negative to date Continue IV meropenem>>changed to Zosyn Continue Ramires catheter Continue tamsulosin, finasteride Requested for ultrasound-guided IV line placement Appreciate Urology input Continue Ramires catheter for now Needs follow-up with urology on discharge Tinea Cruris continue Lotrimin BID Hypertension No known history Started on losartan 25 mg daily Monitor BP Polyneuropathy Continue pregabalin DVT Px: SCDs Heparin SQ Disposition Likely home with home health Admission and Anticipated Discharge Date Admission Date: September 25, 2023 Subjective Patient is seen and examined at bedside Offers no new complaints Right foot pain is controlled Denies chest pain, dyspnea, dizziness, nausea, vomiting, abdominal pain Review of Systems Review of Systems: All systems reviewed & are unremarkable except as noted in Subjective Physical Exam Physical Exam: Physical Exam: Vitals signs as noted above General Appearance:Moderately built and nourished, no apparent distress Head: normocephalic, Atraumatic Eyes: normal inspection, EOMI Neck: supple, Trachea midline Respiratory/Chest: Normal breath sounds, CTA, No accessory muscle use Cardiovascular: S1, S2, No murmur Abdomen/GI:Soft, Non tender, Bowel sounds present Extremities/Musculoskeletal:normal inspection, no edema : B/L groin rash Neurologic/Psych:AAOX3, grossly no focal neurological deficits Skin: normal color, warm Results & Data Results & Data Vital Signs (Past 12 Hours) Vital Signs Temp Pulse Resp BP BP Pulse Ox O2 Del Method 09/28/23 15:11 36.4 C L 74 18 122/73 97 Room Air 09/28/23 06:56 36.4 C L 78 18 164/85 H 96 Room Air Laboratory Results Short CBC 09/28/23 Range/Units 06:13 WBC 8.21 (4.8-10.8) K/ul Hgb 14.9 (14.0-18.0) g/dl Hct 43.7 (42.0-52.0) % Plt Count 199 (130-400) K/uL BMP 09/28/23 06:13 Sodium 138 Potassium 4.2 Chloride 107 Carbon Dioxide 25 BUN 19 Creatinine 0.89 Glucose 88 Calcium 8.4 L (1) Urinary tract infection Hematuria presence: with hematuria Urinary tract infection type: site unspecified Qualified Code(s): N39.0 - Urinary tract infection, site not specified; R31.9 - Hematuria, unspecified
[2023-09-28] MEDS: HEPARIN SOD 5,000 UNIT/0.5 ML VIAL SQ SCH (21:26)
[2023-09-29 08:27] LABS: BUN Creatinine Ratio 20.2 (10-20); Calcium 8.5 mg/dl (8.6-10.3); Creatinine Clr Calc Pharmacy 73.4 ml/min; Est GFR (Non-African American) 69.9 ml/min; Potassium 4.5 mmol/L (3.5-5.1)
--- NOTE | 2023-09-29 12:45 | Hospitalist Progress Note ---
Date of Service September 29, 2023 Assessment & Plan (1) Urinary tract infection: Plan 77-year-old male with history of BPH, status post TURP, urethral stricture, polyneuropathy, etc. presenting with Pseudomonas UTI. Complicated urinary tract infection Urinary retention H/O BPH, TURP, urethral stricture --Urine culture grew Pseudomonas --Blood culture negative to date Continue IV meropenem>>changed to Zosyn Continue Ramires catheter Continue tamsulosin, finasteride Appreciate Urology input Continue Ramires catheter until follow-up with urology on discharge Plan to be discharged home with home health today Tinea Cruris continue Lotrimin BID Hypertension No known history Started on losartan 25 mg daily Monitor BP Polyneuropathy Continue pregabalin DVT Px: SCDs Heparin SQ Disposition Home with home health Admission and Anticipated Discharge Date Admission Date: September 25, 2023 Subjective Patient is seen and examined at bedside States feeling well today Offers no new complaints Denies chest pain, dyspnea, dizziness, nausea, vomiting, abdominal pain Plan to be discharged home today Review of Systems Review of Systems: All systems reviewed & are unremarkable except as noted in Subjective Physical Exam Physical Exam: Physical Exam: Vitals signs as noted above General Appearance:Moderately built and nourished, no apparent distress Head: normocephalic, Atraumatic Eyes: normal inspection, EOMI Neck: supple, Trachea midline Respiratory/Chest: Normal breath sounds, CTA, No accessory muscle use Cardiovascular: S1, S2, No murmur Abdomen/GI:Soft, Non tender, Bowel sounds present Extremities/Musculoskeletal:normal inspection, no edema : B/L groin rash Neurologic/Psych:AAOX3, grossly no focal neurological deficits Skin: normal color, warm Results & Data Results & Data Vital Signs (Past 12 Hours) Vital Signs Temp Pulse Resp BP Pulse Ox O2 Del Method 09/29/23 07:34 36.5 C 68 18 142/81 H 97 Room Air Laboratory Results BMP 09/29/23 07:21 Sodium 138 Potassium 4.5 Chloride 106 Carbon Dioxide 26 BUN 21 Creatinine 1.04 Glucose 93 Calcium 8.5 L (1) Urinary tract infection Hematuria presence: with hematuria Urinary tract infection type: site unspecified Qualified Code(s): N39.0 - Urinary tract infection, site not specified; R31.9 - Hematuria, unspecified
--- NOTE | 2023-09-29 12:51 | Discharge Summary ---
Date of Service September 29, 2023 Admission HPI Per Admitting Provider 77-year-old male with history of BPH, status post TURP, urethral stricture, polyneuropathy, etc. presenting with Pseudomonas UTI. Patient presented to the ER [facility] 2 days ago, September 23, 2023 for difficulty with urination. He was found to have a postvoid residual of 500 and decision was made to place a Ramires catheter. There was difficulty with Ramires catheter placement, urologist was consulted, Ramires catheter finally placed and was advised to keep the Ramires catheter until Thursday. Urine cultures also obtained at that point and was prescribed with empiric p.o. Patient called in today as urine culture showed Pseudomonas which is intermediate to ciprofloxacin and levofloxacin. He was started on meropenem at the emergency room. On exam, patient seen resting in bed, sitting up, not in distress, very upset, frustrated, speaking loud voice, " everything was screwed since the beginning" "I have not taken my medications, I have not eaten all day" States he has not been feeling well for the past 3 days. No fevers or chills, no abdominal pain, flank pain, has chronic back pain. Has noted some blood clots in the Ramires catheter bag this morning. Reports itching in bilateral groin areas. No other symptoms. Explained laboratory findings, plan of care with patient in detail and at length-repeatedly. Answered all his questions as well. He is understanding and agreeable with the plan of care RN at the bedside during my exam and interview Patient's also updated over the phone. She verbalized understanding and agreement with the plan of care Admission Exam Per Admitting Provider General- oriented x 3, not in distress, speaks in sentences with no effort or accessory muscle use Eyes- anicteric Neck- no JVD Lungs- clear breath sounds bilaterally, no rales/wheezes Heart- normal rate, regular rhythm; no murmurs Abdomen- normal bowel sounds, nondistended, soft, nontender Ramires catheter in place-draining yellow urine Positive erythema bilateral inguinal area Extremities- no pretibial edema, no calf tenderness Neuro- alert, oriented x 3; no gross focal neurologic deficits Skin- warm & dry Principal Diagnosis Complicated urinary tract infection Urinary retention H/O BPH, TURP, urethral stricture Tinea Cruris Hypertension Discharge Data Allergies Allergy/AdvReac Type Severity Reaction Status Date / Time celecoxib [From Celebrex] AdvReac Intermediate Diarrhea Verified 09/25/23 18:43 duloxetine AdvReac Intermediate Chest Verified 09/25/23 18:43 tightness, diarrhea gabapentin AdvReac Intermediate dried out Verified 09/25/23 18:43 tear ducts omeprazole AdvReac Intermediate constipatio Verified 09/25/23 18:43 n pregabalin [From Lyrica] AdvReac Intermediate dried out Verified 09/25/23 18:43 tear ducts sulfamethoxazole AdvReac Intermediate constipatio Verified 09/25/23 18:43 [From Bactrim] n trimethoprim [From Bactrim] AdvReac Intermediate constipatio Verified 09/25/23 18:43 n Goat Milk Allergy Severe ANAPHYLAXIS Uncoded 09/25/23 18:43 Consultations 09/25/23 18:29 ED Decision to Admit Stat 09/28/23 08:21 Consult Urology Routine Procedures Performed Laboratory Results WBC 8.21 K/ul (4.8-10.8) 09/28/23 06:13 RBC 4.89 M/uL (4.70-6.10) 09/28/23 06:13 Hgb 14.9 g/dl (14.0-18.0) 09/28/23 06:13 Hct 43.7 % (42.0-52.0) 09/28/23 06:13 MCV 89.4 fL (80.0-100.0) 09/28/23 06:13 MCH 30.5 pg (25.0-34.0) 09/28/23 06:13 MCHC 34.1 g/dL (32.0-36.0) 09/28/23 06:13 RDW Std Deviation 42.3 fL (36.4-46.3) 09/28/23 06:13 RDW Coeff of Maddy 12.8 % (11.5-14.5) 09/28/23 06:13 Plt Count 199 K/uL (130-400) 09/28/23 06:13 MPV 10.0 fL (9.4-12.4) 09/28/23 06:13 Immature Gran % (Auto) 0.7 % 09/26/23 05:31 Neut % (Auto) 64.6 % 09/26/23 05:31 Lymph % (Auto) 18.8 % 09/26/23 05:31 Dillon % (Auto) 13.8 % 09/26/23 05:31 Eos % (Auto) 1.7 % 09/26/23 05:31 Baso % (Auto) 0.4 % 09/26/23 05:31 Neut # (Auto) 4.95 K/uL (1.40-6.50) 09/26/23 05:31 Lymph # (Auto) 1.44 K/uL (1.20-3.40) 09/26/23 05:31 Dillon # (Auto) 1.06 K/uL (0.11-0.59) H 09/26/23 05:31 Eos # (Auto) 0.13 K/uL (0.00-0.50) 09/26/23 05:31 Baso # (Auto) 0.03 K/uL (0.00-0.20) 09/26/23 05:31 Immature Gran # (Auto) 0.05 K/uL (0.01-0.20) 09/26/23 05:31 PT 10.8 Seconds (9.0-12.0) 09/25/23 16:09 INR 1.0 (0.9-1.1) 09/25/23 16:09 APTT 26 Seconds (21-31) 09/25/23 16:09 PTT Ratio 1.0 09/25/23 16:09 Sodium 138 mmol/L (136-145) 09/29/23 07:21 Potassium 4.5 mmol/L (3.5-5.1) 09/29/23 07:21 Chloride 106 mmol/L (98-107) 09/29/23 07:21 Carbon Dioxide 26 mmol/L (21-32) 09/29/23 07:21 Anion Gap 6 (3-11) 09/29/23 07:21 BUN 21 mg/dl (6-23) 09/29/23 07:21 Creatinine 1.04 mg/dl (0.6-1.4) 09/29/23 07:21 Est Cr Clr Drug Dosing 73.4 ml/min 09/29/23 07:21 Est GFR ( Amer) 81.0 ml/min 09/29/23 07:21 Est GFR (Non-Af Amer) 69.9 ml/min 09/29/23 07:21 BUN/Creatinine Ratio 20.2 (10-20) H 09/29/23 07:21 Glucose 93 mg/dl (70-99(Fasting)) 09/29/23 07:21 Lactate 1.1 mmol/L (0.4-2.0) 09/25/23 16:09 Calcium 8.5 mg/dl (8.6-10.3) L 09/29/23 07:21 Magnesium 2.1 mg/dl (1.7-2.4) 09/25/23 16:09 Total Bilirubin 0.7 mg/dl (0.2-1.0) 09/25/23 16:09 AST 16 U/L (13-39) 09/25/23 16:09 ALT 15 U/L (7-52) 09/25/23 16:09 Alkaline Phosphatase 66 U/L (34-104) 09/25/23 16:09 Troponin I High Sens 7.8 pg/ml (0-20) 09/25/23 16:09 Total Protein 7.6 gm/dl (6.0-8.3) 09/25/23 16:09 Albumin 4.3 gm/dl (3.4-5.0) 09/25/23 16:09 Globulin 3.3 gm/dl (2.5-4.0) 09/25/23 16:09 Albumin/Globulin Ratio 1.3 (0.9-2) 09/25/23 16:09 Procalcitonin 0.04 ng/ml (0-0.5) 09/25/23 16:09 Urine Color Yellow 09/25/23 23:30 Urine Appearance Clear (Clear) 09/25/23 23:30 Urine pH 6.5 (4.5-7.5) 09/25/23 23:30 Ur Specific [place] 1.006 (1.000-1.030) 09/25/23 23:30 Urine Protein Negative (Negative) 09/25/23 23:30 Urine Glucose (UA) Negative (Negative) 09/25/23 23:30 Urine Ketones Trace (Negative) H 09/25/23 23:30 Urine Blood 3+ (Negative) H 09/25/23 23:30 Urine Nitrite Negative (Negative) 09/25/23 23:30 Urine Bilirubin Negative (Negative) 09/25/23 23:30 Urine Urobilinogen Negative (Negative) 09/25/23 23:30 Ur Leukocyte Esterase Trace (Negative) H 09/25/23 23:30 Urine WBC (Auto) 0-5 /hpf (0-5) 09/25/23 23:30 Urine RBC (Auto) 0-2 /hpf (0-2) 09/25/23 23:30 U Hyaline Cast (Auto) 0-2 /lpf (0-2) 09/25/23 23:30 U Epithel Cells (Auto) 0-2 /hpf (0-2) 09/25/23 23:30 Urine Bacteria (Auto) None Seen (None Seen) 09/25/23 23:30 Hospital Course (1) Urinary tract infection: Plan 77-year-old male with history of BPH, status post TURP, urethral stricture, polyneuropathy, etc. presenting with Pseudomonas UTI. Complicated urinary tract infection Urinary retention H/O BPH, TURP, urethral stricture --Urine culture grew Pseudomonas --Blood culture negative to date Continue IV meropenem>>changed to Zosyn Continue Ramires catheter Continue tamsulosin, finasteride Appreciate Urology input Continue Ramires catheter until follow-up with urology on discharge Plan to be discharged home with home health today Tinea Cruris continue Lotrimin BID Hypertension No known history Started on losartan 25 mg daily Monitor BP Polyneuropathy Continue pregabalin DVT Px: SCDs Heparin SQ Disposition Home with home health Total Time Total Time Spent Total Time Spent (In Minutes): 53 minutes Discharge Plan Discharge Items Patient Disposition: Home - Home Health Services Reason For Visit: PSEUDOMONAS UTI Discharge Diagnosis: Complicated urinary tract infection Urinary retention H/O BPH, TURP, urethral stricture Tinea Cruris Hypertension Activity: Per Instructions section Exercise/Sports: Wait until after follow-up appointment Non-emergency contact: Primary Care Provider and Urologist Call non-emergency contact if: you have any medication questions, your symptoms worsen, your pain is concerning for you and you have a fever Follow-up/Referrals: John Calderon DO [Primary Care Provider] - (Date & Time 10/05/2023 2:20 PM Provider John Calderon DO [facility] ) Diet: Regular Addtl Attending Provider Instructions: Follow-up with your primary care physician Dr. John Calderon in 1 week Follow-up with your urologist next week as scheduled -- Complete the IV antibiotic Zosyn course as prescribed -- Continue Ramires catheter for now as recommended by your urologist. Voiding trial as outpatient -- Your final blood cultures are pending at the time of discharge. Follow-up with your physician for results. --Monitor your blood pressure regularly at home and discuss with your physician for further adjustment of medications as needed Seek immediate medical attention if your symptoms reoccur or worsen Please take all medications as instructed on discharge list below. Please call if you have any questions or problems. You can reach a [facility] hospitalist on duty at [facility] 24 hours a day by calling [phone] Pending Studies at Discharge: Yes Studies:: Blood culture Stand-Alone Forms: My [facility], Smoking Cessation Medications and DC Order Prescriptions: New losartan 25 mg Tablet 25 mg PO QAM Qty: 30 1RF Advanced Probiotic 625 mg (10 billion cell) Capsule 1 cap PO DAILY Qty: 10 0RF clotrimazole 1 % Cream 1 applic EXT BID 14 Days Qty: 30 0RF Rx Instructions: for 14 days Zosyn in dextrose (iso-osm) 4.5 gram/100 mL piggyback 4.5 g IV Q8H 5 Days Continued montelukast 10 mg tablet 10 mg PO QAM finasteride 5 mg tablet 5 mg PO QAM tamsulosin 0.4 mg capsule 0.4 mg PO QPM Patient Comments: takes after dinner mometasone-formoterol 200-5 mcg/actuation HFA aerosol inhaler 1 puff INH BID PRN (Reason: Shortness Of Breath Or Wheezing) [id number] 0.5-1-0.5 % Drops 1 drp OPHTHALMIC (EYE) TID PRN (Reason: Dry Eyes) PreserVision AREDS-2 250-90-40-1 mg Tablet,Chewable 1 tab PO BID acetaminophen 500 mg tablet 1,000 mg PO Q8H PRN (Reason: Pain) Discharge Orders: Discharge Order (Routine); Ordered 09/29/23 Ordered By: Emory Yee Admission Data Admit Date/Time: 09/25/23 18:34 Attending Provider: Emory Yee Admit Provider: Almas Cochran Primary Care Provider: John Calderon Other Providers: Almas Cochran; Diego Kaplan; Guido Vivar; Rafael Clemens; Re Coon; Daljit Akhtar; Keyonna Dawn; Myra Wolff; Saurav Hernández; Urszula Gentile.; Carl Sheriff; Kian Nelson; Tip Magana.; [place],[facility]
== END 2023-09-29 15:33 | disposition home health service (06) | DRG 690 ==
LOC: ED 15:51 → SUATTDRO 18:34 → 3N 18:34

== ENCOUNTER 2023-11-26 14:50 | Inpatient (IN) ==
[2023-11-26 16:12] LABS: Basophils # (auto) 0.06 K/uL (0.00-0.20); Basophils % (auto) 0.7 %; Eosinophils # (auto) 0.67 K/uL (0.00-0.50); Eosinophils % (auto) 7.6 %; Hematocrit (blood only) 46.1 % (42.0-52.0); Hemoglobin 15.9 g/dl (14.0-18.0); Immature Granulocytes # (auto) 0.04 K/uL (0.01-0.20); Immature Granulocytes % (auto) 0.5 %; Lymphocytes # (auto) 1.19 K/uL (1.20-3.40); Lymphocytes % (auto) 13.5 %; Mean Corpuscular Hemoglobin 30.9 pg (25.0-34.0); Mean Corpuscular Hgb Conc 34.5 g/dL (32.0-36.0); Mean Corpuscular Volume 89.7 fL (80.0-100.0); Mean Platelet Volume 9.7 fL (9.4-12.4); Monocytes % (auto) 10.2 %; Neutrophils # (auto) 5.95 K/uL (1.40-6.50); Neutrophils % (auto) 67.5 %; Platelet Count 216 K/uL (130-400); RDW Coefficient of Variation 12.6 % (11.5-14.5); RDW Standard Deviation 41.5 fL (36.4-46.3); Red Blood Count 5.14 M/uL (4.70-6.10); White Blood Count 8.81 K/ul (4.8-10.8)
[2023-11-26 16:25] LABS: Albumin Globulin Ratio 1.4 (0.9-2); Albumin Level 4.2 gm/dl (3.4-5.0); BUN Creatinine Ratio 19.8 (10-20); Bilirubin,Total 0.4 mg/dl (0.2-1.0); Creatinine Clr Calc Pharmacy 89.7 ml/min; Est GFR (African American) 97.6 ml/min; Est GFR (Non-African American) 84.2 ml/min; Globulin 3.1 gm/dl (2.5-4.0); Potassium 4.3 mmol/L (3.5-5.1); Total Protein 7.3 gm/dl (6.0-8.3)
--- NOTE | 2023-11-26 17:35 | Emergency Department Note ---
History of Present Illness General Chief complaint: Referred by Doctor Stated complaint: THINKS HE MIXED UP HIS MEDS Time Seen by Provider: 11/26/23 17:03 Source: patient, family ( was at the bedside), RN notes reviewed and old records reviewed (Outpatient urine culture which showed Pseudomonas) Mode of arrival: ambulatory Limitations: no limitations History of Present Illness This patient is a 78-year-old male who is being treated for Pseudomonas UTI comes in with increasing fusion over the last 3 days. He called his doctor's office and the nurse thinks he is more confused. He was diagnosed with a week or so ago with UTI and they gave him Levaquin but he did not take it because he was worried about peripheral neuropathy so they switched him to Cipro. We did review the culture from [facility] and it is a Pseudomonas that is sensitive to cefepime among others. His says he is not normally confused at all but he is got increasingly confused. He still has dysuria. no fever. no hematuria. he he does have some back pain but has herniated disks history. It has been more chronic. No nausea or vomit . no fever or chills or chest pain . no abdominal pain. Home Medications Medication Instructions Recorded Confirmed Type finasteride 5 mg tablet (Proscar) 5 mg PO QAM 07/21/19 11/18/23 History montelukast 10 mg tablet 10 mg PO QAM 07/21/19 11/18/23 History (Singulair) tamsulosin 0.4 mg capsule 0.4 mg PO QPM 07/21/19 11/18/23 History mometasone-formoterol HFA 200 1 puff inhalation BID PRN 08/07/20 11/18/23 History mcg-5 mcg/actuation aerosol Shortness Of Breath Or Wheezing inhaler (Dulera) [id number] 2 drp ophthalmic (eye) TID PRN Dry 08/29/22 11/18/23 History 80 0.5 %-1 %-0.5 % eye drops Eyes (Refresh Optive Advanced) vit C 250 mg-E 90 mg-zinc 40 1 tab PO BID 08/29/22 11/18/23 History mg-copper 1 pf-phfpgi-jebycg chew tablet (PreserVision AREDS-2) acetaminophen 325 mg tablet 650 mg PO Q8H PRN Pain 11/18/23 11/18/23 History levofloxacin 500 mg tablet 500 mg PO QAM 11/18/23 11/18/23 History sennosides 8.6 mg tablet (Senokot) 8.6 mg PO QAM 11/18/23 11/18/23 History Allergies Allergy/AdvReac Type Severity Reaction Status Date / Time celecoxib [From Celebrex] AdvReac Intermediate Diarrhea Verified 11/18/23 12:20 duloxetine AdvReac Intermediate Chest Verified 11/18/23 12:20 tightness, diarrhea gabapentin AdvReac Intermediate dried out Verified 11/18/23 12:20 tear ducts omeprazole AdvReac Intermediate constipatio Verified 11/18/23 12:20 n pregabalin [From Lyrica] AdvReac Intermediate dried out Verified 11/18/23 12:20 tear ducts sulfamethoxazole AdvReac Intermediate constipatio Verified 11/18/23 12:20 [From Bactrim] n trimethoprim [From Bactrim] AdvReac Intermediate constipatio Verified 11/18/23 12:20 n doxycycline AdvReac Tongue Verified 11/18/23 12:20 Swelling/Upset Stomach/Muscle Aches Goat Milk Allergy Severe ANAPHYLAXIS Uncoded 11/18/23 12:21 Past Med/Surg History Problem List (Updated 11/26/23 @ 18:07 by Aristides Cates MD) Acute UTI (Acute) Pseudomonas infection (Acute) Altered mental status (Acute) Complicated UTI (urinary tract infection) Abnormal CT scan of lung Urinary tract infection (Acute) Urinary retention (Acute) Urethral stricture (Acute) Constipation (Acute) Complication of catheter (Acute) Complication of catheter (Acute) Back strain (Acute) Back pain (Acute) BPH (benign prostatic hypertrophy) (Acute) Abdominal pain (Acute) Medical History Situational anxiety "Right now with my surgeries and my 's recent surgery" Family history of macular degeneration "Taking preservision for" Constipation "Uses Senokot to ease straining/stress to prostate" Complicated UTI (urinary tract infection) "Just picked up levofloxacin today" Hx of colonic polyp "I just have one" History of urinary retention No issues at this time 2016, prior to his TURP procedure History of herniated intervertebral disc no sx, therapy only Hx of bronchitis hx ~2009, given his inhaler at this time, has not used since he has bronchitis Hx of ulcerative colitis "Just an episode in " BPH (benign prostatic hyperplasia) Osteoarthritis History of allergic rhinitis Surgical History Hx of colonoscopy 2018 Hx of eye surgery drake Gurrola - left eye, for "lazy" eye History of bronchoscopy back in the ; for a foreign body in his lungs S/P TURP 11/2015, marybel Dietz H/O knee surgery 2000 left, tendon reattachment surgery History of dilation of urethra (~2000) Family History Father Cerebral infarction due to occlusion of cerebellar artery Social History Smoking Status: Never smoker Second Hand Exposure: No; Do You Dip or Chew Tobacco: No; Hx Alcohol Use: No Hx Substance Use: No Preferred Language: Polish Communication Ability: Effective Communication Ability Comment: Difficulty finding words when upset Oil Spot [employer]her Required: No Beliefs That Will Affect Care: None marital status: Current Living Situation: Spouse current occupational status: retired Feels Safe at Home: Yes Assistive Devices: Glasses Immunizations: Past medical historydenies diabetes, cardiac disease, blood thinner usage Allergiesno known drug allergies Social historylives locally with his . He is followed by Dr. John Calderon Review of Systems A total of 10 systems reviewed and were otherwise negative Physical Exam Vital Signs Vital Signs - 24 hr 11/26/23 15:17 Temperature 36.5 C Temperature Source Temporal Artery Scan Pulse Rate 83 Respiratory Rate 18 Respiratory Effort / Characteristics Non-Labored Spontaneous Respiratory Depth Normal Respiratory Pattern Regular Blood Pressure 154/77 H Blood Pressure Mean 102 Blood Pressure Position Sitting Pulse Oximetry 97 Oxygen Delivery Method Room Air Sepsis Recent Fever Within 48 Hours No Sepsis New/Unexplained Change in Mental Status No Sepsis Action Taken by Nursing No Action Required General: Well developed well nourished older male who appears in no acute distress, breathing comfortably on room air. Normal speech. He is not oriented to date and his says that is unusual. He does seem mildly confused but answers most questions appropriately HEENT: Normal cephalic atraumatic. Pupils are equal round and reactive to light. Extraocular movements are intact. Oropharynx is pink with moist mucous membranes. No swelling of the mouth lips or tongue. Neck: Supple with a midline trachea. No meningeal signs or stiffness, no JVD or bruits. No Stridor. Chest: Clear to auscultation bilaterally. No wheezes or rhonchi. No increased work of breathing. Heart: Regular rate and rhythm without murmurs or gallops. Abdomen: Soft nontender, nondistended without rebound guarding or rigidity. Extremities: No cyanosis clubbing or edema. No calf tenderness or assymetry Spine/Back. Non tender to palpation. No CVA tenderness Skin: Good turgor without rashes. Neurologic exam: Cranial nerves two through 12 are intact. Motor and sensation are intact and symmetrical throughout. No tremor. Course Administered Medications Sodium Chloride (Nss) 1,000 mls @ 999 mls/hr IV .Q1H1M ONE Stop: 11/26/23 18:19 Last Admin: 11/26/23 17:42 Dose: 999 mls/hr Documented By: AURELIO Discontinued Medications Cefepime HCl 2,000 mg/ Syringe 20 mls @ 5 mls/min IV NOW STA; Protocol Stop: 11/26/23 17:26 Last Admin: 11/26/23 17:42 Dose: 5 mls/min Documented By: AURELIO Medical Decision Making Differential Diagnosis UTI, sepsis, medication side effect, intracranial process, electrolyte or metabolic abnormality, dehydration Medical Records Attestation: I reviewed the patient's medical records. Home Medications Current Medication List: was personally reviewed by me Laboratory Data Attestation: I reviewed the patient's lab results. 11/26/23 15:54 11/26/23 15:54 Lab Results 11/26/23 Range/Units 15:54 WBC 8.81 (4.8-10.8) K/ul RBC 5.14 (4.70-6.10) M/uL Hgb 15.9 (14.0-18.0) g/dl Hct 46.1 (42.0-52.0) % MCV 89.7 (80.0-100.0) fL MCH 30.9 (25.0-34.0) pg MCHC 34.5 (32.0-36.0) g/dL RDW Std Deviation 41.5 (36.4-46.3) fL RDW Coeff of Maddy 12.6 (11.5-14.5) % Plt Count 216 (130-400) K/uL MPV 9.7 (9.4-12.4) fL Immature Gran % (Auto) 0.5 % Neut % (Auto) 67.5 % Lymph % (Auto) 13.5 % Mcdowell % (Auto) 10.2 % Eos % (Auto) 7.6 % Baso % (Auto) 0.7 % Neut # (Auto) 5.95 (1.40-6.50) K/uL Lymph # (Auto) 1.19 L (1.20-3.40) K/uL Mcdowell # (Auto) 0.90 H (0.11-0.59) K/uL Eos # (Auto) 0.67 H (0.00-0.50) K/uL Baso # (Auto) 0.06 (0.00-0.20) K/uL Immature Gran # (Auto) 0.04 (0.01-0.20) K/uL Sodium 137 (136-145) mmol/L Potassium 4.3 (3.5-5.1) mmol/L Chloride 105 (98-107) mmol/L Carbon Dioxide 26 (21-32) mmol/L Anion Gap 6 (3-11) BUN 17 (6-23) mg/dl Creatinine 0.86 (0.6-1.4) mg/dl Est Cr Clr Drug Dosing 89.7 ml/min Est GFR ( Amer) 97.6 ml/min Est GFR (Non-Af Amer) 84.2 ml/min BUN/Creatinine Ratio 19.8 (10-20) Glucose 99 (70-99(Fasting)) mg/dl Calcium 10.0 (8.6-10.3) mg/dl Total Bilirubin 0.4 (0.2-1.0) mg/dl AST 19 (13-39) U/L ALT 20 (7-52) U/L Alkaline Phosphatase 61 (34-104) U/L Total Protein 7.3 (6.0-8.3) gm/dl Albumin 4.2 (3.4-5.0) gm/dl Globulin 3.1 (2.5-4.0) gm/dl Albumin/Globulin Ratio 1.4 (0.9-2) Imaging Data Attestation: I personally reviewed and interpreted this imaging study as follows: My Impression: Head CTno hemorrhage or mass effect seen. Radiologist's Impression: Head CT 11/26/23 17:19 CT head/brain wo con CLINICAL HISTORY: confusion Technique: Contiguous axial CT images of the head were acquired from the base of the skull to the vertex without intravenous contrast administration. Images were viewed in brain, subdural and bone windows. Automated dose lowering techniques and/or adjustment according to patient size were utilized for this exam. Comparison: None available at the time of this dictation. Findings: The ventricles, basal cisterns, and cerebral sulci are normal. There is no acute intracranial hemorrhage or evidence of acute territorial infarction. Neither mass effect, shift of the midline structures, nor abnormal extra-axial fluid collections are shown. Imaged portions of the paranasal sinuses and mastoid air cells are clear. The orbits appear normal. There are no acute fractures of the calvaria or scalp swelling. Impression: No acute intracranial hemorrhage, no evidence of acute territorial infarction or other acute intracranial disease process. ACT 112: Negative or not required by law. Electronically signed by: Arnol Simon M.D. 11/26/2023 5:54 PM MDM Narrative This patient comes in as described above. He is having confusion over the last couple days. He does have a Pseudomonas UTI. He is on Cipro which could be causing the confusion however it could also be the urinary tract infection and the other antibiotics listed are all IV. His blood work is reassuring he was hydrated with a normal normal saline bolus. He was reassessed frequently. I did discuss the case with consultation with our ED pharmacist, and we are going to put him on cefepime IV based on his cultures. I do he needs to be admitted/observed given that he has altered mental status and a Pseudomonas UTI. He may also be related to the Cipro. I did a CAT scan of his head. There are no acute findings seen on the CAT scan of the head there is no subdural. I do think he needs to be admitted/observed. I did discuss case with the [facility] hospitalist Dr. Adams, in consultation, and the patient will be admitted/observed Impression & Plan Altered mental status, Pseudomonas infection, Acute UTI Discharge Plan Visit Data Chief Complaint: Referred by Doctor Stated Complaint: THINKS HE MIXED UP HIS MEDS ED Provider: Aristides Cates Discharge Problem: Altered mental status, Pseudomonas infection, Acute UTI Forms Stand Alone Forms: My [facility] Prescriptions Prescriptions: No Action montelukast [Singulair] 10 mg tablet 10 mg PO QAM finasteride [Proscar] 5 mg tablet 5 mg PO QAM tamsulosin 0.4 mg capsule 0.4 mg PO QPM Patient Comments: takes after dinner Dulera 200-5 mcg/actuation HFA aerosol inhaler 1 puff INH BID PRN (Reason: Shortness Of Breath Or Wheezing) Refresh Optive Advanced 0.5-1-0.5 % Drops 2 drp OPHTHALMIC (EYE) TID PRN (Reason: Dry Eyes) PreserVision AREDS-2 250-90-40-1 mg Tablet,Chewable 1 tab PO BID sennosides [Senokot] 8.6 mg Tablet 8.6 mg PO QAM acetaminophen 325 mg Tablet 650 mg PO Q8H PRN (Reason: Pain) levofloxacin 500 mg Tablet 500 mg PO QAM Referrals Referrals: John Calderon DO [Primary Care Provider] - Discharge Problem: Altered mental status Qualifiers: Altered mental status type: unspecified Qualified Code(s): R41.82 - Altered mental status, unspecified
[2023-11-26] MEDS: CEFEPIME 2,000 MG in SYRINGE 0 ML IV STA (17:42)
[2023-11-26] MEDS: SODIUM CHLORIDE 0.9% 1,000 ML IV ONE (17:42)
--- NOTE | 2023-11-26 17:55 | CT Scan Report ---
CT head/brain wo con CLINICAL HISTORY: confusion Technique: Contiguous axial CT images of the head were acquired from the base of the skull to the dora brenda without intravenous contrast administration. Images were viewed in brain, subdural and [facility]. Automated dose lowering techniques and/or adjustment according to patient size were utilized for this exam. Comparison: None available at the time of this dictation. Findings: The ventricles, basal cisterns, and cerebral sulci are normal. There is no acute intracranial hemorrh age or evidence of acute territorial infarction. Neither mass effect, shift of the midline structures , nor abnormal extra-axial fluid collections are shown. Imaged portions of the paranasal sinuses and mastoid air cells are clear. The orbits appear normal. There are no acute fractures of the calvaria or scalp swelling. Impression: No acute intracranial hemorrhage, no evidence of acute territorial infarction or other acute intracra nial disease process. ACT 112: Negative or not required by law. Electronically signed by: Arnol Simon M.D. 11/26/2023 5:54 PM
[2023-11-26] MEDS ORDERED: ACETAMINOPHEN 325 MG TAB PO PRN (19:06)
[2023-11-26] MEDS ORDERED: [UNRECOGNIZED DRUG - OTHER] OP PRN (19:06)
[2023-11-26] MEDS ORDERED: SENNA 8.6 MG TAB PO PRN (19:06)
[2023-11-26] MEDS ORDERED: NON-FORMULARY MEDICATION (Mometasone-Formoterol [Dulera] 200-5 mcg/actuation HFA aerosol i INH PRN ×2 (19:06→21:40)
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
[2023-11-26] MEDS ORDERED: CEFEPIME 2,000 MG in SYRINGE 0 ML IV SCH (19:15)
[2023-11-26] MEDS ORDERED: NON-FORMULARY MEDICATION (Vit C,E-Zn-Coppr-Lutein-Zeaxan [Preservision Areds-2] 250-90-40- PO SCH (21:00)
[2023-11-26] MEDS ORDERED: TAMSULOSIN HCL 0.4 MG CAP PO SCH (21:00)
[2023-11-26] MEDS ORDERED: ONDANSETRON INJ 2 MG/ML 2 ML VIAL IV PRN (21:40)
[2023-11-26] MEDS ORDERED: POLYETHYLENE (MIRALAX) 17 GM PACK PO PRN (21:40)
[2023-11-26] MEDS ORDERED: ARTIFICIAL TEARS OP PRN (21:50)
[2023-11-26] MEDS: SODIUM CHLORIDE 0.9% 1,000 ML IV SCH (23:07)
[2023-11-26] MEDS: ENOXAPARIN INJ 40 MG/0.4 ML SYR SQ SCH (23:07)
[2023-11-26] MEDS: LABETALOL HCL IV 5 MG/ML 20ML IV PRN (23:08)
[2023-11-26] MEDS: TAMSULOSIN HCL 0.4 MG CAP PO SCH (23:10)
[2023-11-26] MEDS: CEROVITE ADV FORMULA TAB PO SCH (23:10)
[2023-11-27] MEDS ORDERED: ALBUTEROL HFA 8 GM INHALER INH PRN
--- OUTSIDE RECORDS SUMMARY | 2023-11-27 01:44 | External Medical Summary ---
Author Name UNSPECIFIED Address Unknown Organization [facility] History of Encounters Reason for Assessment: Start of care - f urther visits planned Inpatient discharge facility: Past 14 Da ys: Discharged From Short Stay Acute Hospital Most Recent Inpatient Discharge Date: Functional Assessment Patient Living Situation: Patient lives with other person(s) in the home: Around the clock Urinary Incontinence or Urin gillian Catheter Present: Patient requires a urinary catheter (i.e ., external, indwelling, intermittent, suprapubic) Bowel Incontinence Frequency: Very rarel y or never has bowel incontinence Cognitive Functioning: Requires promptin g (cueing, repetition, reminders) only under stressful or unfamiliar conditions. When Confused (Reported or Observed): In new or complex situations only Cognitive and Behavioral and Psychiatric Symptoms: None Current Ability: Bathing: Unable to use the shower or tub, but able to participate in bathing self in bed, at the sink, in bedside chair, or on commode, with the assistance or supervision of another person throughout the bath. Current Ability: Ambulation: Able to wal k only with the supervision or assistance of another person at all times. Current: Management Of Oral Medications: Able to take medication(s) at the correct times if: (a) individual dosages are prepared in advance by another person; OR (b) another person develops a drug diary or chart Procedures Treated for Urinary Tract Infection in P ast 14 Days: Yes Problems Primary Home Care Diagnosis ICD Code: Z4 5.2, Encounter for adjustment and management of VAD Home Care Diagnosis 1: ICD Code: N30.01, Acute cystitis with hematuria Home Care Diagnosis 1: Severity Ratin Home Care Diagnosis 2: ICD Code: B96.5, Pseudomonas (mallei) causing diseases classd elswhr Home Care Diagnosis 2: Severity Ratin Home Care Diagnosis 3: ICD Code: N40.1, Enlarged prostate with lower urinary tract symptoms Home Care Diagnosis 3: Severity Ratin Home Care Diagnosis 4: ICD Code: R33.9, Retention of urine, unspecified Home Care Diagnosis 4: Severity Ratin Home Care Diagnosis 5: ICD Code: N35.919 ^ Home Care Diagnosis 5: Severity Ratin
--- OUTSIDE RECORDS SUMMARY | 2023-11-27 01:44 | External Medical Summary ---
Author Name UNSPECIFIED Address Unknown Organization [facility] History of Encounters Reason for Assessment: Discharge from [facility] Inpatient Facility where the patient been admitted: No inpatient facility admission Discharge Disposition: Patient remained in the community (without formal assistive services) Functional Assessment Bowel Incontinence Frequency: Very rarel y or never has bowel incontinence When Confused (Reported or Observed): In new or complex situations only When Anxious (Reported or Observed): Les s often than daily Cognitive and Behavioral and Psychiatric Symptoms: None Current: Management Of Oral Medications: Able to take medication(s) at the correct times if: (a) individual dosages are prepared in advance by another person; OR (b) another person develops a drug diary or chart
--- OUTSIDE RECORDS SUMMARY | 2023-11-27 01:44 | External Medical Summary | Continuity of Care Document ---
Author Name Unknown Organization [id number] Address [address] [place] [phone] Care Team Providers Care Commercial Title Examiner Name Role Phone John Calderon Primary Care Physician [phone] [id number] Date(s): 11/05/23 - 11/05/23 [facility] [address] [place] [id number] [facility] Medicine [address] [address] Encounter Diagnosis Hallux rigidus, right foot(Discharge Diagnosis) - 11/05/23 Right foot pain(Discharge Diagnosis) - 11/05/23 Discharge Disposition: Home or Self Care Attending Physician: LAMBERT Ruvalcaba Christina L Referring Physician: LAMBERT Ruvalcaba Christina L Allergies, Adverse Reactions, Alerts Substance Criticality Severity Reaction Reaction Severity Status gabapentin dries tear ducts Ac tive CeleBREX diarrhea Active Allergy Not found in Search 1 Anaphylaxis Active pregabalin dries tear ducts Ac tive 1goat milk Assessment and Plan Extracted from: Title:Follow Up Visit Author:LAMBERT Ruvalcaba Ch ristina L Date:11/05/23 1.Hallux rigidus, right foot Patient has failed conservative treatment, recommend surgical interventionright foot Patient made aware of risks and benefits and signed consent for the surgery Patient had PDMP site checked and [place] for narcotic medication - Medication prescribed today includes:Edgewood,was prescribedat previous preop visitmay also take Tylenolfor his discomfort after surgery Patient has failed conservative treatment, recommend surgical intervention - right foot, patient has tried conservative treatments including changing shoes, anti inflammatory medications, shoe inserts and pads without relief Patient will have medical clearance per PCP chest x-ray, EKGordered as well as CBC with differential and basic metabolic profile,arterial Doppler ordered secondary tocalcified arteries seen on x-ray Rationale for surgery is ongoing pain secondary to large bone spur that is no longer improving with conservative treatment of steroid injectionsrecommending cheilectomy to remove the large spur to help better accommodate shoe gear DVT risk is low patient will bear full weight on right foot with use of a postop shoe,patient will take an 81 mg for DVT prevention discussed today Patient signed foot diagram indicating right foot surgery - discussed the post op course of 2-4 weeks and that may need to be extended based on healing, patient will bear full weight on right foot with use of postop shoe, sutures to be in place for 2 weeks (14 days) to keep surgical site clean and dry and keep dressings clean and dry, patient will take post op pain medication as prescribed, pdmp site checked and ok to give, discussions about risks and benefits of surgery, written list of risk given and reviewed by patient and signed , and patient given the opportunity to ask all questions about the surgery Risks include bleeding infection numbness incomplete relief of symptoms tendon or ligament injury blood clot embolism heart attack stroke and . Clinical photo in chart. Patient will follow-up with me 1 week after surgery 2.Right foot pain Medications finasteride 5 mg oral tablet Start: 09/23/12 12:13:00 PM EDT, 1 tab, PO, Daily Start Date: 09/23/12 Status: Ordered Flomax 0.4 mg oral capsule Start: 09/23/12 12:12:00 PM EDT, 1 cap, PO, Daily Start Date: 09/23/12 Status: Ordered ICaps AREDS 2 oral capsule Start: 08/04/23 1:25:00 PM EDT Start Date: 08/04/23 Status: Ordered Edgewood 5 mg-325 mg oral tablet Start: 09/14/23 12:05:00 PM EDT, 1 tab, PO, q6h, Disp# 10 tab, Refills: 0, PRN: as needed for pain, Pharmacy: [facility]/pharmacy #[id number] Start Date: 09/14/23 Stop Date: 09/21/23 Status: Ordered Refresh Optive Advanced ophthalmic solution Start: 03/30/23 3:34:00 PM EST Start Date: 03/30/23 Status: Ordered Singulair 10 mg oral tablet Start: 09/23/12 12:13:00 PM EDT, 1 tab, PO, qPM Start Date: 09/23/12 Status: Ordered Ventolin Start: 09/23/12 12:14:00 PM EDT, 2 puffs, inhaled, bid, dose unknown. Start Date: 09/23/12 Status: Ordered Mental Status 11/05/23 Barriers to Learning one year None evide nt Mandatory Health Literacy Documentation Yes Health Literacy Communication Barriers N ever Primary Language [place] Problem List Condition Confirmation Course Effective Dates Status H ealth Status Informant Acid reflux Confirmed Active BPH Confirmed Active Right foot pain Confirmed Active Lumbar disc herniation with radiculopathy Confirmed Active Right lumbar radiculopathy Confirmed Active Neuropathy of foot Confirmed Active Hallux rigidus, right foot Confirmed Active Weight monitoring Confirmed Active Wheezing Confirmed Active Diagnosis Diagnosis Type Effective Dates Health Status Cl inical Service Informant Right foot pain Discharge Diagnosis 11/05/23 Non-Specified Hallux rigidus, right foot Discharge Diagnosis 11/05/23 Non-Specified Procedures Procedure Date Related Diagnosis Body Site Status TURP - Transurethral resection of prostate 2015 Completed Knee surgery 2000 Completed Surgery of the urethra Co mpleted Vital Signs Most recent to oldest [Reference Range]: 1 Height 190.4 cm (11/05/23 11:22 AM) Patient Weight 97.0 kg (11/05/23 11:22 AM) Body Mass Index 26.76 kg/m2 (11/05/23 11:22 AM) Heart Rate 81 bpm (11/05/23 11:22 AM) Blood Pressure 114/70mmHg (11/05/23 11:22 AM) Cuff Pulse Pressure 44 mmHg (11/05/23 11:22 AM) BP Location # 1 Left Arm (11/05/23 11:22 AM) Social History Social History Type Response Smoking Status Never smoked cigaret makeda Sex Male Ortho Outpt Note * LAMBERT Ruvalcaba Christina L: PERFORM Event Display: Ortho Outpt Note Authored Date: [id number] Chief Complaint right foot pre-op Primary Care Provider DO Calderon Trevor S Referring Provider LAMBERT Ruvalcaba Christina L Subjective Patient is a very pleasant 78-year-old male presenting today for preoperative evaluation for right footfirst metatarsal phalangeal joint cheilectomy Patient has a history of significant pain in the feet he has herniated disks and L5 radiculopathythis limits his ambulationhe has had significant worsening of his hallux rigidushe used to receive significant improvement from steroid injections however they are no longer helping his discomfort. The size of the dorsal exostosisprevents him from comfortably wearing shoe gearand he presents for evaluation for preop. Past medical historyacid reflux BPH lumbar disc herniation with radiculopathy neuropathy of foot. Surgical historysurgery of the urethra knee surgery. Medicationsreviewed. Allergiesreviewed. Social historydenies smoking. Family historynoncontributory Review of Systems Extremity numbness Objective Vitals & Measurements HR:81(Monitored) BP:114/70 SpO2:98% WT:97.0kg WT:97.000kg(Dosing) Physical Exam Problem focused right foot: Dorsalis pedis pulsepalpable 1out of 4 and audible with hand-held Doppler, posterior tibial pulse palpable 1 out of 4and audible with hand-held Doppler, capillary refill time less than 3 seconds, skin turgor is good to all digits of the right foot with pedal hair present,x-ray does havecalcified arteries presentand visible in the dorsal aspect of the right foot arterial Dopplers/LEONARD ordered prior to study for evaluation Gross sensation intact all digitsof the right foot,history of neuropathy right foot Skin is clean dry and intact without maceration or breakdown. Right great toe with hallux rigidus grade 3,crepitus noted on physical evaluation withessentially no dorsiflexion or plantarflexion. Patient experiences discomfort secondary to the large dorsalexostosis,having increased pain not responsive to previous injection,patient is unable to wear shoe gear secondary to this large size of the exostosisrecommend cheilectomy procedure X-ray dictation 3 views right foot:Taken at March 30, 2023 visit Images 2023-11-05 11:26:06 Assessment/Plan 1.Hallux rigidus, right foot Patient has failed conservative treatment, recommend surgical interventionright foot Patient made aware of risks and benefits and signed consent for the surgery [facility] - Medication prescribed today includes:Edgewood,was prescribedat previous preop visitmay also take Tylenolfor his discomfort after surgery Patient has failed conservative treatment, recommend surgical intervention - right foot, patient has tried conservative treatments including changing shoes, anti inflammatory medications, shoe inserts and pads without relief Patient will have medical clearance per PCP chest x-ray, EKGordered as well as CBC with differential and basic metabolic profile,arterial Doppler ordered secondary tocalcified arteries seen on x-ray Rationale for surgery is ongoing pain secondary to large bone spur that is no longer improving withconservative treatment of steroid injectionsrecommending cheilectomy to remove the large spur to help better accommodate shoe gear DVT risk is low patient will bear full weight on right foot with use of a postop shoe,patient will take an 81 mg for DVT prevention discussed today Patient signed foot diagram indicating right foot surgery - discussed the post op course of 2-4 weeks and that may need to be extended based on healing, patient will bear full weight on right foot with use of postop shoe, sutures to be in place for 2 weeks (14 days) to keep surgical site clean and dry and keep dressings clean and dry, patient will take post op pain medication as prescribed, pdmp site checked and ok to give, discussions about risks and benefits of surgery, written list of risk given and reviewed by patient and signed , and patient given the opportunity to ask all questions about the surgery Risks include bleeding infection numbness incomplete relief of symptoms tendon or ligament injury blood clot embolism heart attack stroke and . Clinical photo in chart. Patient will follow-up with me 1 week after surgery 2.Right foot pain Electronic Signature on File Electronically Reviewed/Signed by: Shira Ruvalcaba DPM Author Signature Dt/Tm:11/05/2023 11:33 AM Division of Sports Medicine CLR Patient Care team information Care Team Personnel Name: DO Calderon Trevor S Position: Referring DIRECT Member Role: Primary Care Provider Address: Address: [facility] [address] [place] [address] Care Team Related Persons Name: SHAKIRA HERNANDEZ Address: home [address], [place] [id number]
--- OUTSIDE RECORDS SUMMARY | 2023-11-27 01:44 | External Medical Summary | Continuity of Care Document ---
Author Name Unknown Organization [place] [id number] [facility] Address [address], [place] [id number] Care Team Providers Care Cable Layer Name Role Phone John Calderon Primary Care Physician [phone] [id number] Date(s): 11/17/23 - 11/17/[address], [address] [place] [address] [phone] Discharge Disposition: Home or Self Care Attending Physician: LAMBERT Ruvalcaba Christina L Referring Physician: LAMBERT Ruvalcaba Christina L Allergies, Adverse Reactions, Alerts Substance Criticality Severity Reaction Reaction Severity Status gabapentin dries tear ducts Ac tive CeleBREX diarrhea Active Allergy Not found in Search 1 Anaphylaxis Active pregabalin dries tear ducts Ac tive 1goat milk Medications finasteride 5 mg oral tablet Start: 09/23/12 12:13:00 PM EDT, 1 tab, PO, Daily Start Date: 09/23/12 Status: Ordered Flomax 0.4 mg oral capsule Start: 09/23/12 12:12:00 PM EDT, 1 cap, PO, Daily Start Date: 09/23/12 Status: Ordered ICaps AREDS 2 oral capsule Start: 08/04/23 1:25:00 PM EDT Start Date: 08/04/23 Status: Ordered [place] 5 mg-325 mg oral tablet Start: 09/14/23 12:05:00 PM EDT, 1 tab, PO, q6h, Disp# 10 tab, Refills: 0, PRN: as needed for pain, Pharmacy: [facility]/pharmacy #[id number] Start Date: 09/14/23 Stop Date: 09/21/23 Status: Ordered Refresh Optive Advanced ophthalmic solution Start: 03/30/23 3:34:00 PM EST Start Date: 03/30/23 Status: Ordered Singulair 10 mg oral tablet Start: 09/23/12 12:13:00 PM EDT, 1 tab, PO, qPM Start Date: 09/23/12 Status: Ordered Ventolin Start: 09/23/12 12:14:00 PM EDT, 2 puffs, inhaled, bid, dose unknown. 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 Right lumbar radiculopathy Confirmed Active Neuropathy of foot Confirmed Active Hallux rigidus, right foot Confirmed Active Weight monitoring Confirmed Active Wheezing Confirmed Active Procedures Procedure Date Related Diagnosis Body Site Status TURP - Transurethral resection of prostate 2015 Completed Knee surgery 2000 Completed Surgery of the urethra Co mpleted Results Radiology Reports * Exam Date Time Procedure Performing Provider Status 11/17/23 12:02 PM VL Ankle-Brachial Index-Complete Daniel tolentino, Tara Larsen; Final Notes: (VL Ankle-Brachial Index-Complete) Reason For Exam: calcifications right foot, right foot pain VL Ankle-Brachial Index-Complete [facility] FINAL REPORT Name: HARIS HERNANDEZ : 1945 Visit: [id number] Date: 17 Nov 2023 TYPE OF TEST: Peripheral Arterial Testing REASON FOR TEST Right foot calcifications and pain INTERPRETATION/FINDINGS Resting ankle/brachial indices and multilevel Doppler waveforms were obtained of the bilateral lower extremities. 1. Doppler waveforms on the right demonstrate triphasic waveforms in the right common femoral, deep femoral and superficial femoral arteries. Biphasic waveforms obtained in the popliteal, anterior tibial, posterior tibial and peroneal arteries. Heavy calcification noted in the posterior tibial and anterior tibial arteries. 2. Doppler waveforms on the left demonstrate triphasic waveforms in the left common femoral and deep femoral arteries. Biphasic waveforms obtained in the superficial femoral, popliteal, anterior tibial, posterior tibial and peroneal arteries. 3. Unable to obtain ABIs bilaterally - the bilateral anterior tibial and posterior tibial arteries are non-compressible. 4. The right great toe pressure is 88mmHg (toe/brachial index is 0.61 - moderately reduced) 5. The left great toe pressure is 114mmHg (toe/brachial index is 0.79 - abnormal - mild) Retrospective comparison: No prior ABIs available for comparison. IMPRESSION/COMMENTS I have personally reviewed the data relevant to the interpretation of this study. TECHNOLOGIST: WESTLEY Neville,RDMS,RVT PHYSICIAN: Derrick Park M.D. Signed: 11/17/2023 12:55:32 PM Final Dictated by:MD Park Eugene J Dictated DT/TM:11/17/2023 12:55 Signed by:MD Park Eugene J Signed (Electronic Signature):11/17/2023 12:55 Transcribed by:MUSAS Social History Social History Type Response Smoking Status Never smoked cigaret makeda Sex Male Sex Representation Male (finding) Patient Care team information Care Team Personnel Name: DO Calderon Trevor S Position: Referring DIRECT Member Role: Primary Care Provider Address: [address] [address] [place] Care Team Related Persons Name: SHAKIRA HERNANDEZ
[2023-11-27] MEDS: CEFEPIME 2,000 MG in SYRINGE 0 ML IV SCH (02:36)
[2023-11-27 06:44] LABS: Hematocrit (blood only) 44.5 % (42.0-52.0); Hemoglobin 14.7 g/dl (14.0-18.0); Mean Corpuscular Hemoglobin 29.9 pg (25.0-34.0); Mean Corpuscular Volume 90.6 fL (80.0-100.0); Mean Platelet Volume 9.8 fL (9.4-12.4); Platelet Count 185 K/uL (130-400); RDW Coefficient of Variation 12.6 % (11.5-14.5); RDW Standard Deviation 41.5 fL (36.4-46.3); Red Blood Count 4.91 M/uL (4.70-6.10); White Blood Count 7.46 K/ul (4.8-10.8)
[2023-11-27 07:00] LABS: BUN Creatinine Ratio 16.7 (10-20); Calcium 8.8 mg/dl (8.6-10.3); Creatinine Clr Calc Pharmacy 83.5 ml/min; Est GFR (African American) 95.8 ml/min; Est GFR (Non-African American) 82.7 ml/min; Potassium 4.1 mmol/L (3.5-5.1)
[2023-11-27] MEDS: MONTELUKAST SODIUM 10 MG TABLET PO SCH (07:45)
[2023-11-27] MEDS: FINASTERIDE 5 MG TAB PO SCH (07:45)
[2023-11-27] MEDS ORDERED: FINASTERIDE 5 MG TAB PO SCH (09:00)
[2023-11-27] MEDS ORDERED: MONTELUKAST SODIUM 10 MG TABLET PO SCH (09:00)
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
[2023-11-27 13:20] LABS: Appearance Urine Clear (Clear); Bilirubin Urine Negative (Negative); Blood Urine Negative (Negative); Color Urine Yellow; Glucose Urine UA Negative (Negative); Ketones Urine Trace (Negative); Leukocyte Esterase Urine Negative (Negative); Nitrite Urine Negative (Negative); Protein Urine Negative (Negative); Urobilinogen Urine Negative (Negative)
[2023-11-27] MEDS: SENNA 8.6 MG TAB PO PRN (21:21)
--- NOTE | 2023-11-27 22:29 | Electrocardiogram Report ---
Test Reason : Blood Pressure : / mmHG Vent. Rate : 078 BPM Atrial Rate : 078 BPM P-R Int : 152 ms QRS Dur : 094 ms QT Int : 384 ms P-R-T Axes : 061 076 061 degrees QTc Int : 437 ms Normal sinus rhythm Normal ECG When compared with ECG of 25-SEP-2023 16:12, No significant change was found Confirmed by Joe Brush ([id number]) on 11/27/2023 10:29:11 PM Referred By: Confirmed By:Joe Brush
[2023-11-27] MEDS: ACETAMINOPHEN 325 MG TAB PO PRN (23:02)
[2023-11-28 06:23] LABS: Hematocrit (blood only) 45.2 % (42.0-52.0); Mean Corpuscular Hemoglobin 30.1 pg (25.0-34.0); Mean Corpuscular Hgb Conc 33.2 g/dL (32.0-36.0); Mean Corpuscular Volume 90.8 fL (80.0-100.0); Platelet Count 192 K/uL (130-400); RDW Coefficient of Variation 12.6 % (11.5-14.5); RDW Standard Deviation 41.5 fL (36.4-46.3); Red Blood Count 4.98 M/uL (4.70-6.10); White Blood Count 8.45 K/ul (4.8-10.8)
[2023-11-28 06:43] LABS: Calcium 8.4 mg/dl (8.6-10.3); Creatinine Clr Calc Pharmacy 95.1 ml/min; Est GFR (African American) 101.1 ml/min; Est GFR (Non-African American) 87.2 ml/min; Potassium 3.9 mmol/L (3.5-5.1)
[2023-11-28] MEDS: bisacodyL 5 MG TABEC PO ONE (09:44)
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
== END 2023-11-28 12:56 | disposition home or self-care (01) | DRG 689 ==
LOC: ED 14:50 → SUATTDRO 18:16 → 2N 18:16

== ENCOUNTER 2023-12-10 20:44 | Observation (INO) ==
[2023-12-10] MEDS ORDERED: PROMETHAZINE 6.25 MG/50.25 ML BAG IV PRN (23:19)
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
[2023-12-11] MEDS: ACETAMINOPHEN 325 MG TAB PO PRN (00:01)
[2023-12-11 00:44] LABS: Appearance Urine Clear (Clear); Bacteria Urine Automated None Seen (None Seen); Bilirubin Urine Negative (Negative); Blood Urine 3+ (Negative); Cast Urine Automated 0-2 /lpf (0-2); Color Urine Yellow; Epithelial Cell Urine Auto 0-2 /hpf (0-2); Glucose Urine UA Negative (Negative); Ketones Urine 1+ (Negative); Leukocyte Esterase Urine Trace (Negative); Nitrite Urine Negative (Negative); Protein Urine 1+ (Negative); RBC Urine Automated >20 /hpf (0-2); Specific Gravity Urine 1.011 (1.000-1.030); Urobilinogen Urine Negative (Negative); WBC Urine Automated 0-5 /hpf (0-5)
[2023-12-11] MEDS: OPTIRAY 320 100ml IV ONE (01:07)
[2023-12-11] MEDS: PHENAZOPYRIDINE HCL 100 MG TAB PO STA (01:40)
[2023-12-11] MEDS: TAMSULOSIN HCL 0.4 MG CAP PO ONE (01:40)
[2023-12-11] MEDS: POLYETHYLENE (MIRALAX) 17 GM PACK PO STA (01:40)
[2023-12-11] MEDS: DOCUSATE SODIUM/SENNA 50/8.6MG TAB PO STA (01:40)
[2023-12-11] MEDS: SODIUM CHLORIDE 0.9% 1,000 ML IV ONE (01:45)
[2023-12-11] MEDS ORDERED: ARTIFICIAL TEARS OP PRN (02:25)
[2023-12-11] MEDS: PRESERVISION AREDS PO SCH (02:28)
--- NOTE | 2023-12-11 03:16 | CT Scan Report ---
Exam(s): CT ABDOMEN + PELVIS With Contrast IV Amt: 92 cc opit 320 EXAM: CT Abdomen and Pelvis With Intravenous Contrast CLINICAL HISTORY: Reason for exam: abd pain, constipation. TECHNIQUE: Axial computed tomography images of the abdomen and pelvis with intravenous contrast. Automated exposure control was utilized for the study. A dose lowering technique was utilized adhering to the principles of ALARA. CONTRAST: Patient received 92 cc opit 320 of IV contrast COMPARISON: CT abdomen and pelvis to 08/07/2020 FINDINGS: Lung bases: Unremarkable. No mass. No consolidation. ABDOMEN: Liver: Unremarkable. No mass. Gallbladder and bile ducts: Cholelithiasis. No ductal dilation. Pancreas: Unremarkable. No mass. No ductal dilation. Spleen: Unremarkable. No splenomegaly. Adrenals: Unremarkable. No mass. Kidneys and ureters: RIGHT lower pole renal cyst measures 5.8 x 4.4 cm. No hydronephrosis. Stomach and bowel: Moderate fecal retention, correlate for constipation. Diverticulosis, without acute diverticulitis. No small bowel obstruction. No free intraperitoneal air. PELVIS: Appendix: No findings to suggest acute appendicitis. Bladder: Ramires catheter terminates in a decompressed urinary bladder. If there is concern for UTI, urinalysis recommended. Reproductive: Enlarged prostate gland measures 6.3 cm. ABDOMEN and PELVIS: Intraperitoneal space: Unremarkable. No free air. No significant fluid collection. Bones/joints: Degenerative changes of the spine. No acute fracture. No dislocation. Soft tissues: Unremarkable. Vasculature: Atherosclerotic changes of the aorta. No abdominal aortic aneurysm. Lymph nodes: Unremarkable. No enlarged lymph nodes. IMPRESSION: 1. Enlarged prostate gland measures 6.3 cm. 2. Cholelithiasis. 3. Ramires catheter terminates in a decompressed urinary bladder. If there is concern for UTI, urinalysis recommended. 4. Moderate fecal retention, correlate for constipation. 5. Diverticulosis, without acute diverticulitis. No small bowel obstruction. No free intraperitoneal air. Electronically signed by: Sid Pepe MD 12/11/23 03:15 AM
[2023-12-11] MEDS: traMADol HCL 50 MG TABLET PO PRN (04:04)
[2023-12-11] MEDS: PHENAZOPYRIDINE HCL 100 MG TAB PO PRN (04:30)
[2023-12-11] MEDS ORDERED: oxyCODONE HCL IR 5 MG TAB (IMMEDIATE RELEASE) PO PRN (04:55)
[2023-12-11] MEDS: oxyCODONE HCL IR 5 MG TAB (IMMEDIATE RELEASE) PO STA (05:32)
[2023-12-11] MEDS: DOCUSATE SODIUM/SENNA 50/8.6MG TAB PO SCH (08:39)
[2023-12-11] MEDS: FINASTERIDE 5 MG TAB PO SCH (08:39)
[2023-12-11] MEDS: MONTELUKAST SODIUM 10 MG TABLET PO SCH (08:40)
--- NOTE | 2023-12-11 09:49 | Magnetic Resonance Report ---
MR lumbar spine wo con CLINICAL HISTORY: back pain, LE numbness/weakness TECHNIQUE: Multiplanar sequences through the lumbar spine were obtained, without intravenous contrast . Comparison: Comparison is made to MRI lumbar spine 12/15/2021 FINDINGS: The alignment is anatomical. L1-L2: Broad-based posterior disc bulge is seen without significant canal or neuroforaminal stenosis. L2-L3: Broad-based posterior disc bulge is seen with mild bilateral neural foraminal stenosis. L3-L4: Broad-based posterior disc bulge is seen with mild canal and neuroforaminal stenosis. L4-L5: Broad-based posterior disc bulge is seen with a focal right-sided extrusion. There is moderate bilateral neural foraminal stenosis and mild canal stenosis. L5-S1: Exiting right nerve root is impinged upon by the extrusion at the L4-L5 level. There is mild b ilateral neural foraminal stenosis. The spinal ligaments are intact, without evidence of disruption or abnormal signal intensity. The spi nal cord is normal in signal intensity and there is no evidence of cord contusion. There is no eviden ce of an extradural, intradural, extramedullary or intramedullary lesion. Visualized soft tissues are normal. IMPRESSION: There is a new right-sided disc extrusion at L4-L5 with impingement on the exiting right L5-S1 nerve roots. Degenerative changes are also seen with up to moderate bilateral neuroforaminal stenosis and m ild canal stenosis. ACT 112: Negative or not required by law. Electronically signed by: Arnol Simon M.D. 12/11/2023 9:48 AM
--- NOTE | 2023-12-11 10:07 | Urology Progress Note ---
Date of Service December 11, 2023 Assessment & Plan (1) Urinary retention: (2) Urethral stricture: Plan: 78-year-old male admitted for acute urinary retention. Afebrile, hemodynamically stable Labs currently pending Urinary retention now addressed with Ramires catheter in place Ramires catheter draining appropriately Recommend keep catheter for at least a week to allow bladder rest He can follow-up with Dr. Dietz outpatient as scheduled, can consider keeping catheter until his upcoming follow-up with Dr. Dietz (12/28) Recently treated for UTI per patient UA was negative for pyuria or bacteria will sign off, please contact our service with any additional questions or concerns Admission and Anticipated Discharge Date Admission Date: December 10, 2023 Subjective No acute issues overnight. He has not moved bowels yet. Tolerating Ramires catheter. Catheter is draining appropriately. Denies fever or chills. Review of Systems Constitutional: as per Subjective / HPI Genitourinary: + as per Subjective / HPI Physical Exam Constitutional: no acute distress Respiratory: normal respiratory effort; no respiratory distress and no labored breathing Gastrointestinal (Abdomen): Inspection/Auscultation: abdomen normal to inspection Musculoskeletal: Head/Neck/Chest: normocephalic Neurologic: moves all extremities and awake Psychiatric: Orientation: alert and oriented x 3 Genitourinary: Ramires catheter patent and draining orange-colored urine Results & Data Vital Signs (Past 12 Hours) Vital Signs Temp Pulse Pulse Resp BP Pulse Ox O2 Del Method 12/11/23 07:49 36.4 C L 64 17 129/75 97 Room Air 12/11/23 07:02 36.5 C 18 150/81 H 96 Room Air 12/11/23 02:26 159/85 H 12/10/23 23:42 Room Air 12/10/23 23:25 36.6 C 68 16 168/83 H 97 Room Air PG Care Time/CCT Total # of Minutes Spent Total Time Spent with Patient: Total time spent is greater than 50% in coordination of care (as documented) at patient's floor/unit and/or counseling patient: Coding Level of Care Code 35544 SUB INP/OBS CARE 05/21MIN Diagnoses Urinary retention R33.9 Urethral stricture N35.9
[2023-12-11 10:14] LABS: Basophils # (auto) 0.04 K/uL (0.00-0.20); Basophils % (auto) 0.5 %; Eosinophils # (auto) 0.65 K/uL (0.00-0.50); Eosinophils % (auto) 7.6 %; Hematocrit (blood only) 43.9 % (42.0-52.0); Hemoglobin 14.8 g/dl (14.0-18.0); Immature Granulocytes # (auto) 0.05 K/uL (0.01-0.20); Immature Granulocytes % (auto) 0.6 %; Lymphocytes # (auto) 1.06 K/uL (1.20-3.40); Lymphocytes % (auto) 12.3 %; Mean Corpuscular Hemoglobin 30.3 pg (25.0-34.0); Mean Corpuscular Hgb Conc 33.7 g/dL (32.0-36.0); Mean Platelet Volume 9.6 fL (9.4-12.4); Monocytes # (auto) 1.06 K/uL (0.11-0.59); Monocytes % (auto) 12.3 %; Neutrophils # (auto) 5.73 K/uL (1.40-6.50); Neutrophils % (auto) 66.7 %; Platelet Count 208 K/uL (130-400); RDW Coefficient of Variation 12.5 % (11.5-14.5); RDW Standard Deviation 41.1 fL (36.4-46.3); Red Blood Count 4.88 M/uL (4.70-6.10); White Blood Count 8.59 K/ul (4.8-10.8)
[2023-12-11 10:28] LABS: BUN Creatinine Ratio 14.3 (10-20); Calcium 8.9 mg/dl (8.6-10.3); Creatinine Clr Calc Pharmacy 94.2 ml/min; Est GFR (African American) 98.6 ml/min; Est GFR (Non-African American) 85.1 ml/min; Potassium 4.1 mmol/L (3.5-5.1)
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
--- NOTE | 2023-12-11 15:27 | Electrocardiogram Report ---
Test Reason : Blood Pressure : */* mmHG Vent. Rate : 64 BPM Atrial Rate : 64 BPM P-R Int : 156 ms QRS Dur : 96 ms QT Int : 418 ms P-R-T Axes : 55 74 58 degrees QTcB Int : 431 ms Normal sinus rhythm Normal ECG When compared with ECG of 26-Nov-2023 15:53, No significant change was found Confirmed by Matteo Villanueva ([id number]) on 12/11/2023 3:26:46 PM Referred By: Cindy Boykin Confirmed By: Matteo Villanueva
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
[2023-12-11] MEDS: TAMSULOSIN HCL 0.4 MG CAP PO SCH (19:54)
[2023-12-12 06:12] LABS: Hematocrit (blood only) 44.9 % (42.0-52.0); Hemoglobin 15.5 g/dl (14.0-18.0); Mean Corpuscular Hemoglobin 30.4 pg (25.0-34.0); Mean Corpuscular Hgb Conc 34.5 g/dL (32.0-36.0); Platelet Count 200 K/uL (130-400); RDW Coefficient of Variation 12.5 % (11.5-14.5); RDW Standard Deviation 40.6 fL (36.4-46.3); White Blood Count 9.43 K/ul (4.8-10.8)
[2023-12-12 06:28] LABS: BUN Creatinine Ratio 16.2 (10-20); Calcium 8.6 mg/dl (8.6-10.3); Creatinine Clr Calc Pharmacy 106.9 ml/min; Est GFR (African American) 103.8 ml/min; Est GFR (Non-African American) 89.6 ml/min; Magnesium 2.1 mg/dl (1.7-2.4); Phosphorus 2.8 mg/dl (2.5-4.9); Potassium 4.2 mmol/L (3.5-5.1)
[2023-12-12 10:02] VITALS: O2SAT 99
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
[2023-12-12 13:43] VITALS: BP 130/80; PULSE 78; RESP 16; TEMP 97.7
== END 2023-12-12 13:59 | disposition home or self-care (01) ==
LOC: INTOOBSV 23:14 → 3E 23:14

== ENCOUNTER 2023-12-29 00:52 | Inpatient (IN) ==
[2023-12-29 01:47] LABS: Appearance Urine Clear (Clear); Bacteria Urine Automated 2+ (None Seen); Bilirubin Urine Negative (Negative); Blood Urine Negative (Negative); Cast Urine Automated 0-2 /lpf (0-2); Color Urine Yellow; Epithelial Cell Urine Auto 0-2 /hpf (0-2); Glucose Urine UA Negative (Negative); Ketones Urine Negative (Negative); Leukocyte Esterase Urine 1+ (Negative); Nitrite Urine Positive (Negative); Protein Urine Negative (Negative); RBC Urine Automated 0-2 /hpf (0-2); Specific Gravity Urine 1.012 (1.000-1.030); Urobilinogen Urine Negative (Negative)
[2023-12-29] MEDS: PIPERACILLIN/TAZOBACTAM 4.5 GM/100 ML BAG IV ONE (03:55)
[2023-12-29 04:06] LABS: Basophils # (auto) 0.04 K/uL (0.00-0.20); Basophils % (auto) 0.5 %; Eosinophils # (auto) 0.59 K/uL (0.00-0.50); Hematocrit (blood only) 44.5 % (42.0-52.0); Hemoglobin 14.8 g/dl (14.0-18.0); Immature Granulocytes # (auto) 0.05 K/uL (0.01-0.20); Immature Granulocytes % (auto) 0.7 %; Lymphocytes # (auto) 1.33 K/uL (1.20-3.40); Lymphocytes % (auto) 18.1 %; Mean Corpuscular Hemoglobin 29.8 pg (25.0-34.0); Mean Corpuscular Hgb Conc 33.3 g/dL (32.0-36.0); Mean Corpuscular Volume 89.7 fL (80.0-100.0); Mean Platelet Volume 9.8 fL (9.4-12.4); Monocytes # (auto) 0.96 K/uL (0.11-0.59); Monocytes % (auto) 13.1 %; Neutrophils # (auto) 4.36 K/uL (1.40-6.50); Neutrophils % (auto) 59.6 %; Platelet Count 214 K/uL (130-400); RDW Coefficient of Variation 12.5 % (11.5-14.5); RDW Standard Deviation 40.8 fL (36.4-46.3); Red Blood Count 4.96 M/uL (4.70-6.10); White Blood Count 7.33 K/ul (4.8-10.8)
[2023-12-29 04:23] LABS: Albumin Globulin Ratio 1.3 (0.9-2); Albumin Level 3.8 gm/dl (3.4-5.0); BUN Creatinine Ratio 23.8 (10-20); Bilirubin,Total 0.4 mg/dl (0.2-1.0); Creatinine Clr Calc Pharmacy 89.4 ml/min; Est GFR (African American) 98.6 ml/min; Est GFR (Non-African American) 85.1 ml/min; Potassium 4.4 mmol/L (3.5-5.1); Total Protein 6.8 gm/dl (6.0-8.3)
[2023-12-29] MEDS: CIPROFLOXACIN 500MG HOME PACK PO ONE (04:27)
--- NOTE | 2023-12-29 05:03 | History & Physical Report ---
Date of Service December 29, 2023 Assessment & Plan (1) Acute urinary retention: Plan: 78-year-old male with past medical history significant for hyperlipidemia, GERD, posttraumatic bulbous urethral stricture, BPH, lumbar degenerative disc disease, peripheral neuropathy comes because of urinary retention and also found to have UTI. Recently treated for Pseudomonas UTI. On December 20 he followed up with [facility] and Ramires was removed. And was advised to keep the appointment with Dr. Dietz on 02/09/2024. Today again he was not able to void and came to the ER. He was having abdominal discomfort. Bladder scan showed up to 500 mL residual and s/p Ramires which drained about 600 mL. Still has some abdominal discomfort. No headache. No chest pain. No nausea. No cough. Afebrile. Hemodynamics okay. Patient is somewhat hard of hearing and difficulty to get history. Seems resting comfortably. Acute urinary retention Recurrent History of BPH History of urethral stricture Status post Ramires Continue Flomax and Proscar Follow-up with urology UTI History of Pseudomonas Started on Zosyn Will follow cultures Gentle fluids History of disc herniation with radiculopathy Follow-up with orthospine and pain management Hyperlipidemia On statin DVT prophylaxis Heparin subcu Disposition Med/telemetry Full code History of Present Illness Chief Complaint: Urinary retention and UTI Primary Care Provider: John Calderon DO 78-year-old male with past medical history significant for hyperlipidemia, GERD, posttraumatic bulbous urethral stricture, BPH, lumbar degenerative disc disease, peripheral neuropathy comes because of urinary retention and also found to have UTI. Recently treated for Pseudomonas UTI. On December 20 he followed up with [facility] and Ramires was removed. And was advised to keep the appointment with Dr. Dietz on 02/09/2024. Today again he was not able to void and came to the ER. He was having abdominal discomfort. Bladder scan showed up to 500 mL residual and s/p Ramires which drained about 600 mL. Still has some abdominal discomfort. No headache. No chest pain. No nausea. No cough. Afebrile. Hemodynamics okay. Patient is somewhat hard of hearing and difficulty to get history. Seems resting comfortably. Past medical history. As mentioned above Past surgical history. Colonoscopy. Cystourethroscopy. EGD. Injection of lumbosacral spine. TURP. Tonsillectomy. Strabismus surgery. Revision of urinary tract. Social history. . No smoking. Alcohol rarely. No drug use. Family history. Brother has Alzheimer's disease. Brother has Parkinsonism Allergies Allergy/AdvReac Type Severity Reaction Status Date / Time celecoxib [From Celebrex] AdvReac Intermediate Diarrhea Verified 11/18/23 12:20 duloxetine AdvReac Intermediate Chest Verified 11/18/23 12:20 tightness, diarrhea gabapentin AdvReac Intermediate dried out Verified 11/18/23 12:20 tear ducts omeprazole AdvReac Intermediate constipatio Verified 11/18/23 12:20 n pregabalin [From Lyrica] AdvReac Intermediate dried out Verified 11/18/23 12:20 tear ducts sulfamethoxazole AdvReac Intermediate constipatio Verified 11/18/23 12:20 [From Bactrim] n trimethoprim [From Bactrim] AdvReac Intermediate constipatio Verified 11/18/23 12:20 n doxycycline AdvReac Tongue Verified 11/18/23 12:20 Swelling/Upset Stomach/Muscle Aches goats milk Allergy Swelling Uncoded 12/29/23 02:07 of Lip/Tongue/Throat Home Medications Medication Instructions Recorded Confirmed Type finasteride 5 mg tablet (Proscar) 5 mg PO QAM 07/21/19 12/29/23 History montelukast 10 mg tablet 10 mg PO QAM 07/21/19 12/29/23 History (Singulair) tamsulosin 0.4 mg capsule 0.4 mg PO QPM 07/21/19 12/29/23 History vit C 250 mg-E 90 mg-zinc 40 1 tab PO BID 08/29/22 12/29/23 History mg-copper 1 so-mxgnqf-lletph chew tablet (PreserVision AREDS-2) acetaminophen 325 mg tablet 650 mg PO Q8H PRN Pain 11/18/23 12/29/23 History sennosides 8.6 mg tablet (Senokot) 8.6 mg PO QAM PRN Constipation 11/18/23 12/29/23 History atorvastatin 40 mg tablet 40 mg PO QAM 12/29/23 12/29/23 History Past Med/Surg History Problem List (Updated 12/29/23 @ 06:23 by Edwin Steinberg PA-C) Acute delirium (Acute) Acute UTI (Acute) Displacement of Ramires catheter (Acute) Acute urinary retention (Acute) Lumbar disc herniation with radiculopathy Pseudomonas infection (Acute) Complicated UTI (urinary tract infection) Abnormal CT scan of lung Urinary tract infection (Acute) Urinary retention (Acute) Urethral stricture (Acute) Constipation (Acute) Complication of catheter (Acute) Complication of catheter (Acute) Back strain (Acute) Back pain (Acute) BPH (benign prostatic hypertrophy) (Acute) Abdominal pain (Acute) Medical History Acute UTI Altered mental status Situational anxiety "Right now with my surgeries and my 's recent surgery" Family history of macular degeneration "Taking preservision for" Constipation "Uses Senokot to ease straining/stress to prostate" Complicated UTI (urinary tract infection) "Just picked up levofloxacin today" Hx of colonic polyp "I just have one" History of urinary retention No issues at this time 2016, prior to his TURP procedure History of herniated intervertebral disc no sx, therapy only Hx of bronchitis hx ~2009, given his inhaler at this time, has not used since he has bronchitis Hx of ulcerative colitis "Just an episode in " BPH (benign prostatic hyperplasia) Osteoarthritis History of allergic rhinitis Surgical History Hx of colonoscopy 2018 Hx of eye surgery Maximilian Gurrola - left eye, for "lazy" eye History of bronchoscopy back in the ; for a foreign body in his lungs S/P TURP 11/2015, maximilian Dietz H/O knee surgery 2000 left, tendon reattachment surgery History of dilation of urethra (~2000) Family History Father Cerebral infarction due to occlusion of cerebellar artery Social History Smoking Status: Never smoker Second Hand Exposure: No; Do You Dip or Chew Tobacco: No; Tobacco Cessation Education Requested by Patient: No Hx Alcohol Use: No Hx Substance Use: No Preferred Language: Spanish Communication Ability: Effective Communication Ability Comment: Difficulty finding words when upset 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 Lungs- clear to auscultation no wheezing or crackles Heart- regular rhythm; no murmur, no gallop. Abdomen- normal bowel sounds, soft, nontender, no distension Extremities- no pretibial edema, no erythema seen. Neuro- alert, oriented PERRL,hard of hearing; no facial palsy; no dysarthria; moves extremities Results & Data Results & Data Vital Signs (Past 12 Hours) Vital Signs Temp Pulse Pulse Resp BP BP Pulse Ox 12/29/23 04:36 64 18 177/97 H 99 12/29/23 03:46 64 18 183/102 H 99 12/29/23 01:04 69 12/29/23 01:04 36.4 C L 68 20 167/93 H 97 O2 Del Method 12/29/23 04:36 Room Air 12/29/23 03:46 Room Air 12/29/23 01:04 12/29/23 01:04 Room Air Diagnostic Findings Laboratory Results WBC 7.33 K/ul (4.8-10.8) 12/29/23 03:44 RBC 4.96 M/uL (4.70-6.10) 12/29/23 03:44 Hgb 14.8 g/dl (14.0-18.0) 12/29/23 03:44 Hct 44.5 % (42.0-52.0) 12/29/23 03:44 MCV 89.7 fL (80.0-100.0) 12/29/23 03:44 MCH 29.8 pg (25.0-34.0) 12/29/23 03:44 MCHC 33.3 g/dL (32.0-36.0) 12/29/23 03:44 RDW Std Deviation 40.8 fL (36.4-46.3) 12/29/23 03:44 RDW Coeff of Maddy 12.5 % (11.5-14.5) 12/29/23 03:44 Plt Count 214 K/uL (130-400) 12/29/23 03:44 MPV 9.8 fL (9.4-12.4) 12/29/23 03:44 Immature Gran % (Auto) 0.7 % 12/29/23 03:44 Neut % (Auto) 59.6 % 12/29/23 03:44 Lymph % (Auto) 18.1 % 12/29/23 03:44 [place] % (Auto) 13.1 % 12/29/23 03:44 Eos % (Auto) 8.0 % 12/29/23 03:44 Baso % (Auto) 0.5 % 12/29/23 03:44 Neut # (Auto) 4.36 K/uL (1.40-6.50) 12/29/23 03:44 Lymph # (Auto) 1.33 K/uL (1.20-3.40) 12/29/23 03:44 [place] # (Auto) 0.96 K/uL (0.11-0.59) H 12/29/23 03:44 Eos # (Auto) 0.59 K/uL (0.00-0.50) H 12/29/23 03:44 Baso # (Auto) 0.04 K/uL (0.00-0.20) 12/29/23 03:44 Immature Gran # (Auto) 0.05 K/uL (0.01-0.20) 12/29/23 03:44 Sodium 139 mmol/L (136-145) 12/29/23 03:44 Potassium 4.4 mmol/L (3.5-5.1) 12/29/23 03:44 Chloride 106 mmol/L (98-107) 12/29/23 03:44 Carbon Dioxide 25 mmol/L (21-32) 12/29/23 03:44 Anion Gap 8 (3-11) 12/29/23 03:44 BUN 20 mg/dl (6-23) 12/29/23 03:44 Creatinine 0.84 mg/dl (0.6-1.4) 12/29/23 03:44 Est Cr Clr Drug Dosing 89.4 ml/min 12/29/23 03:44 Est GFR ( Amer) 98.6 ml/min 12/29/23 03:44 Est GFR (Non-Af Amer) 85.1 ml/min 12/29/23 03:44 BUN/Creatinine Ratio 23.8 (10-20) H 12/29/23 03:44 Glucose 99 mg/dl (70-99(Fasting)) 12/29/23 03:44 Calcium 9.0 mg/dl (8.6-10.3) 12/29/23 03:44 Total Bilirubin 0.4 mg/dl (0.2-1.0) 12/29/23 03:44 AST 17 U/L (13-39) 12/29/23 03:44 ALT 22 U/L (7-52) 12/29/23 03:44 Alkaline Phosphatase 53 U/L (34-104) 12/29/23 03:44 Total Protein 6.8 gm/dl (6.0-8.3) 12/29/23 03:44 Albumin 3.8 gm/dl (3.4-5.0) 12/29/23 03:44 Globulin 3.0 gm/dl (2.5-4.0) 12/29/23 03:44 Albumin/Globulin Ratio 1.3 (0.9-2) 12/29/23 03:44 Urine Color Yellow 12/29/23 01:35 Urine Appearance Clear (Clear) 12/29/23 01:35 Urine pH 6.0 (4.5-7.5) 12/29/23 01:35 Ur Specific [place] 1.012 (1.000-1.030) 12/29/23 01:35 Urine Protein Negative (Negative) 12/29/23 01:35 Urine Glucose (UA) Negative (Negative) 12/29/23 01:35 Urine Ketones Negative (Negative) 12/29/23 01:35 Urine Blood Negative (Negative) 12/29/23 01:35 Urine Nitrite Positive (Negative) A 12/29/23 01:35 Urine Bilirubin Negative (Negative) 12/29/23 01:35 Urine Urobilinogen Negative (Negative) 12/29/23 01:35 Ur Leukocyte Esterase 1+ (Negative) H 12/29/23 01:35 Urine WBC (Auto) 11-20 /hpf (0-5) H 12/29/23 01:35 Urine RBC (Auto) 0-2 /hpf (0-2) 12/29/23 01:35 U Hyaline Cast (Auto) 0-2 /lpf (0-2) 12/29/23 01:35 U Epithel Cells (Auto) 0-2 /hpf (0-2) 12/29/23 01:35 Urine Bacteria (Auto) 2+ (None Seen) H 12/29/23 01:35 Code Status & VTE Plan VTE Prophylaxis Plan VTE Prophylaxis will be ordered: Yes
[2023-12-29] MEDS ORDERED: NITROGLYCERIN SL 0.4 MG/TAB TAB SL PRN (06:10)
--- NOTE | 2023-12-29 06:23 | Emergency Department Note ---
History of Present Illness General Chief complaint: Unable to Void Time Seen by Provider: 12/29/23 01:05 History of Present Illness Maximum Pain Intensity: 7 This is a 78-year-old male presenting to the emergency department via ambulance from home stating that he is not able to urinate. Patient has been seen several times in the past few weeks in this department with similar complaints. The patient previously required Ramires catheter, that was ultimately removed. Patient feels the urge to use the bathroom, but is unable to. He does not report any fevers or chills. Patient lives at home with his who recently had mastectomy. Home Medications Medication Instructions Recorded Confirmed Type finasteride 5 mg tablet (Proscar) 5 mg PO QAM 07/21/19 12/29/23 History montelukast 10 mg tablet 10 mg PO QAM 07/21/19 12/29/23 History (Singulair) tamsulosin 0.4 mg capsule 0.4 mg PO QPM 07/21/19 12/29/23 History vit C 250 mg-E 90 mg-zinc 40 1 tab PO BID 08/29/22 12/29/23 History mg-copper 1 wz-niwazl-xnreew chew tablet (PreserVision AREDS-2) acetaminophen 325 mg tablet 650 mg PO Q8H PRN Pain 11/18/23 12/29/23 History sennosides 8.6 mg tablet (Senokot) 8.6 mg PO QAM PRN Constipation 11/18/23 12/29/23 History atorvastatin 40 mg tablet 40 mg PO QAM 12/29/23 12/29/23 History Allergies Allergy/AdvReac Type Severity Reaction Status Date / Time celecoxib [From Celebrex] AdvReac Intermediate Diarrhea Verified 11/18/23 12:20 duloxetine AdvReac Intermediate Chest Verified 11/18/23 12:20 tightness, diarrhea gabapentin AdvReac Intermediate dried out Verified 11/18/23 12:20 tear ducts omeprazole AdvReac Intermediate constipatio Verified 11/18/23 12:20 n pregabalin [From Lyrica] AdvReac Intermediate dried out Verified 11/18/23 12:20 tear ducts sulfamethoxazole AdvReac Intermediate constipatio Verified 11/18/23 12:20 [From Bactrim] n trimethoprim [From Bactrim] AdvReac Intermediate constipatio Verified 11/18/23 12:20 n doxycycline AdvReac Tongue Verified 11/18/23 12:20 Swelling/Upset Stomach/Muscle Aches goats milk Allergy Swelling Uncoded 12/29/23 02:07 of Lip/Tongue/Throat Past Med/Surg History Problem List (Updated 12/29/23 @ 06:23 by Edwin Steinberg PA-C) Acute delirium (Acute) Acute UTI (Acute) Displacement of Ramires catheter (Acute) Acute urinary retention (Acute) Lumbar disc herniation with radiculopathy Pseudomonas infection (Acute) Complicated UTI (urinary tract infection) Abnormal CT scan of lung Urinary tract infection (Acute) Urinary retention (Acute) Urethral stricture (Acute) Constipation (Acute) Complication of catheter (Acute) Complication of catheter (Acute) Back strain (Acute) Back pain (Acute) BPH (benign prostatic hypertrophy) (Acute) Abdominal pain (Acute) Medical History Acute UTI Altered mental status Situational anxiety "Right now with my surgeries and my 's recent surgery" Family history of macular degeneration "Taking preservision for" Constipation "Uses Senokot to ease straining/stress to prostate" Complicated UTI (urinary tract infection) "Just picked up levofloxacin today" Hx of colonic polyp "I just have one" History of urinary retention No issues at this time 2016, prior to his TURP procedure History of herniated intervertebral disc no sx, therapy only Hx of bronchitis hx ~2009, given his inhaler at this time, has not used since he has bronchitis Hx of ulcerative colitis "Just an episode in s" BPH (benign prostatic hyperplasia) Osteoarthritis History of allergic rhinitis Surgical History Hx of colonoscopy 2018 Hx of eye surgery Marybel Gurrola - left eye, for "lazy" eye History of bronchoscopy back in the s; for a foreign body in his lungs S/P TURP 11/2015, marybel Dietz H/O knee surgery 2000 left, tendon reattachment surgery History of dilation of urethra (~2000) Family History Father Cerebral infarction due to occlusion of cerebellar artery Social History Smoking Status: Never smoker Second Hand Exposure: No; Do You Dip or Chew Tobacco: No; Hx Alcohol Use: No Hx Substance Use: No Preferred Language: [place] Communication Ability: Effective Communication Ability Comment: Difficulty finding words when upset 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 Beliefs That Will Affect Care: None marital status: Current Living Situation: Family current occupational status: retired Feels Safe at Home: Yes Assistive Devices: Cane Review of Systems A total of 10 systems reviewed and were otherwise negative Physical Exam Vital Signs Vital Signs - 24 hr 12/29/23 01:04 12/29/23 01:04 12/29/23 03:46 Temperature 36.4 C L Temperature Source Oral Pulse Rate 68 69 Pulse Rate [Apical] 64 Respiratory Rate 20 18 Respiratory Effort / Characteristics Non-Labored Spontaneous Non-Labored Spontaneous Respiratory Depth Normal Normal Respiratory Pattern Regular Regular Blood Pressure 167/93 H Blood Pressure [Right Arm] 183/102 H Blood Pressure Mean 117 Blood Pressure Mean [Right Arm] 129 Blood Pressure Position Semi-fowlers Blood Pressure Position [Right Arm] Lying Pulse Oximetry 97 99 Oxygen Delivery Method Room Air Room Air Sepsis Recent Fever Within 48 Hours No Sepsis New/Unexplained Change in Mental Status N/A Sepsis Action Taken by Nursing No Action Required VITALS: Vitals are noted on the nurse's note and reviewed by myself. Vital signs stable. GENERAL: Elderly white male who appears confused on presentation. He is repeating questions. HEAD: Normocephalic atraumatic. NECK: Supple without nuchal rigidity. No lymphadenopathy. No thyromegaly. Cervical spine is nontender. HEART: Regular rate and rhythm without murmurs gallops or rubs. LUNGS: Clear to auscultation bilaterally without wheezes, rales or rhonchi. No retractions or accessory muscle use. ABDOMEN: Positive normal bowel sounds x 4. Soft, nontender, without masses or organomegaly. No guarding or rebound tenderness. MUSCULOSKELETAL: No muscle atrophy, erythema, or edema noted. Full range of motion in all extremities. Course Administered Medications Discontinued Medications Ciprofloxacin (Ciprofloxacin 500mg Home Pack) 1 each PO UD ONE Stop: 12/29/23 03:07 Last Admin: 12/29/23 04:27 Dose: Not Given Documented By: Piperacillin Sod/Tazobactam Sod (Zosyn) 4.5 gm in 100 mls @ 200 mls/hr IV NOW ONE Stop: 12/29/23 03:44 Last Infusion: 12/29/23 04:25 Dose: Infused Documented By: Admin: 12/29/23 03:55 Dose: 200 mls/hr Documented By: [facility] Medical Decision Making Differential Diagnosis Differential diagnosis: Etiologies such as urinary retention, delirium, shingles, pyelonephritis/UTI, renal colic, appendicitis, diverticulitis, mesenteric ischemia, torsion, aortic pathology, infections, inflammatory bowel disease, bowel obstruction, PUD, biliary pathology, as well as others were entertained. Laboratory Data 12/29/23 03:44 12/29/23 03:44 Lab Results 12/29/23 12/29/23 Range/Units 01:35 03:44 WBC 7.33 (4.8-10.8) K/ul RBC 4.96 (4.70-6.10) M/uL Hgb 14.8 (14.0-18.0) g/dl Hct 44.5 (42.0-52.0) % MCV 89.7 (80.0-100.0) fL MCH 29.8 (25.0-34.0) pg MCHC 33.3 (32.0-36.0) g/dL RDW Std Deviation 40.8 (36.4-46.3) fL RDW Coeff of Maddy 12.5 (11.5-14.5) % Plt Count 214 (130-400) K/uL MPV 9.8 (9.4-12.4) fL Immature Gran % (Auto) 0.7 % Neut % (Auto) 59.6 % Lymph % (Auto) 18.1 % [place] % (Auto) 13.1 % Eos % (Auto) 8.0 % Baso % (Auto) 0.5 % Neut # (Auto) 4.36 (1.40-6.50) K/uL Lymph # (Auto) 1.33 (1.20-3.40) K/uL [place] # (Auto) 0.96 H (0.11-0.59) K/uL Eos # (Auto) 0.59 H (0.00-0.50) K/uL Baso # (Auto) 0.04 (0.00-0.20) K/uL Immature Gran # (Auto) 0.05 (0.01-0.20) K/uL Sodium 139 (136-145) mmol/L Potassium 4.4 (3.5-5.1) mmol/L Chloride 106 (98-107) mmol/L Carbon Dioxide 25 (21-32) mmol/L Anion Gap 8 (3-11) BUN 20 (6-23) mg/dl Creatinine 0.84 (0.6-1.4) mg/dl Est Cr Clr Drug Dosing 89.4 ml/min Est GFR ( Amer) 98.6 ml/min Est GFR (Non-Af Amer) 85.1 ml/min BUN/Creatinine Ratio 23.8 H (10-20) Glucose 99 (70-99(Fasting)) mg/dl Calcium 9.0 (8.6-10.3) mg/dl Total Bilirubin 0.4 (0.2-1.0) mg/dl AST 17 (13-39) U/L ALT 22 (7-52) U/L Alkaline Phosphatase 53 (34-104) U/L Total Protein 6.8 (6.0-8.3) gm/dl Albumin 3.8 (3.4-5.0) gm/dl Globulin 3.0 (2.5-4.0) gm/dl Albumin/Globulin Ratio 1.3 (0.9-2) Urine Color Yellow Urine Appearance Clear (Clear) Urine pH 6.0 (4.5-7.5) Ur Specific [place] 1.012 (1.000-1.030) Urine Protein Negative (Negative) Urine Glucose (UA) Negative (Negative) Urine Ketones Negative (Negative) Urine Blood Negative (Negative) Urine Nitrite Positive A (Negative) Urine Bilirubin Negative (Negative) Urine Urobilinogen Negative (Negative) Ur Leukocyte Esterase 1+ H (Negative) Urine WBC (Auto) 11-20 H (0-5) /hpf Urine RBC (Auto) 0-2 (0-2) /hpf U Hyaline Cast (Auto) 0-2 (0-2) /lpf U Epithel Cells (Auto) 0-2 (0-2) /hpf Urine Bacteria (Auto) 2+ H (None Seen) MDM Narrative Physical exam and history were performed. Nursing notes, EMR, and Medication List were personally reviewed. No social concerns were identified as barriers to patients care. Patient appears to have urinary retention bringing him to the ER this evening. Patient does seem somewhat confused and bladder scan was performed showing almost 500 mL of fluid. Ramires catheter was placed by nursing, which did drain almost a liter fairly briskly. I did review the patient's chart, and last urine culture did grow out a zach quinolone resistant Pseudomonas infection. I did speak to pharmacy, and unfortunately there does not seem to be a reasonable oral antibiotic for this type of infection, and when the patient initially had the infection he was admitted. Upon return to the room I discussed further options of care with the patient, who continues to seem confused. He is able to answer many questions, but does repeat thoughts and phrases. He is moving arms and legs without difficulty. He remains afebrile. I do have concern about the patient's disposition, as his recently had mastectomy and likely will be unable to care for the patient. Because of his previous complicated UTI he was given IV Zosyn here in the ER. Escalation of care is felt to be necessary, and case was discussed with the on- call hospitalist who agreed to evaluate the patient. Please see their dictation for further patient course, plan, disposition. The chart was completed utilizing [employer] Speech Voice Recognition Software. Grammatical errors, random word insertions, pronoun errors, and incomplete sentences are an occasional consequence of this system due to software limitations, ambient noise, and hardware issues. Any formal questions or concerns about the content, text, or information contained within the body of this dictation should be directly addressed to the provider for clarification. Impression & Plan Acute UTI, Acute delirium Discharge Plan Visit Data Chief Complaint: Unable to Void ED Provider: Lawanda Young ED Midlevel Provider: Edwin Steinberg Discharge Problem: Acute UTI, Acute delirium Discharge Instructions Interventions: ED Discharge Assessment Last Done: 12/29/23 05:48
[2023-12-29] MEDS: SODIUM CHLORIDE 0.9% 1,000 ML IV SCH (06:47)
[2023-12-29] MEDS: hydrALAZINE HCL 20 MG/ML VIAL IV ONE (06:47)
[2023-12-29] MEDS: ATORVASTATIN 40 MG TAB PO SCH (08:32)
[2023-12-29] MEDS: ACETAMINOPHEN 325 MG TAB PO PRN (08:32)
[2023-12-29] MEDS: MONTELUKAST SODIUM 10 MG TABLET PO SCH (08:33)
[2023-12-29] MEDS: FINASTERIDE 5 MG TAB PO SCH (08:33)
[2023-12-29] MEDS: CEROVITE ADV FORMULA TAB PO SCH (08:33)
[2023-12-29] MEDS: HEPARIN SOD 5,000 UNIT/0.5 ML VIAL SQ SCH (08:34)
--- NOTE | 2023-12-29 08:58 | Communication Note ---
Date of Service: December 29, 2023 Evaluated patient at bedside Very agitated this am, agitated over recurrent retention issues Flood recently removed 12/20, now with recurrent rention and c/f infection Exam limited 2/2 agitation, however no resp distress or localizing signs/concerns, able to swallow medicince #Acute urinary retention #acute complicated cystitis #BPH s/p TYRP and DVIU/urethral dilation #HX of urethral stricture s/p repair complex urological history flood placed in ED Recently removed 12/20 by Urology with plans to follow up with Dr. Dietz in January with c/f infection Transition to cefepime, narrow based upon cx. #PVD follows vascular surgery Started ASA 81 mg for platelet inhibition/atherosclerosis/PAD Started Lipitor 40 mg for dyslipidemia/hyperlipidemia & pleiotropic benefits of statins #Lumbar radiculopathy To follow pain management rest of plan per hp
[2023-12-29] MEDS ORDERED: PIPERACILLIN/TAZOBACTAM 4.5 GM/100 ML BAG IV SCH (10:00)
[2023-12-29] MEDS: CEFEPIME 2,000 MG in SYRINGE 0 ML IV SCH (13:16)
[2023-12-29] MEDS ORDERED: Nursing to Pharmacy Communication SCH (13:30)
--- NOTE | 2023-12-29 13:49 | Urology Consultation ---
Date of Consultation December 29, 2023 Assessment & Plan (1) Acute urinary retention: (2) Complicated UTI (urinary tract infection): Plan 78yo/M with a hx of urethral stricture admitted with urinary retention and suspected UTI. Afebrile with stable vitals. Labs today show no leukocytosis and normal renal function. Urine culture pending. Urinary retention addressed with Ramires catheter in place. Ramires catheter draining appropriately. Recommend keep catheter for at least 7-10 days to allow bladder rest and while treating infection. He can follow-up with Dr. Dietz outpatient as scheduled, can consider keeping catheter until his upcoming follow-up with Dr. Dietz. Continue antibiotics and tailor per culture sensitivities. Continue supportive care. will sign off, please contact our service with any additional questions or concerns. History of Present Illness Attending Physician: Cindy Boykin MD History of Present Illness 78-year-old male with a past medical history significant for BPH s/p TURP (~2015) previously seen by urology for urethral stricture, requiring cystoscopic placement of the catheter over a wire with urethral dilation (most recently on 12/10/[address] Hernández) who presented to [facility] emergency department on 12/29/2023 with urinary retention and suspected UTI. Per chart review, he was recently treated for Pseudomonas UTI. On December 20 he followed up with [facility] and his Ramires was removed and he was advised to keep the appointment with Dr. Dietz at [facility] on 02/09/2024. He returned to the ED today due to inability to void and abdominal discomfort. Bladder scan showed > 500 mL and a Ramires catheter was placed by nursing staff. He is admitted to medicine service. Urology has been consulted for recurrent retention and dilation of stricture. Patient seen at bedside today. Awake, sitting in bedside chair on arrival. No acute distress. Ramires draining clear yellow urine. No complaints of pain at present. Denies fever, chills, sick, vomiting. He reports feeling frustrated with the recurrent urinary retention issues. Allergies Allergy/AdvReac Type Severity Reaction Status Date / Time celecoxib [From Celebrex] AdvReac Intermediate Diarrhea Verified 11/18/23 12:20 duloxetine AdvReac Intermediate Chest Verified 11/18/23 12:20 tightness, diarrhea gabapentin AdvReac Intermediate dried out Verified 11/18/23 12:20 tear ducts omeprazole AdvReac Intermediate constipatio Verified 11/18/23 12:20 n pregabalin [From Lyrica] AdvReac Intermediate dried out Verified 11/18/23 12:20 tear ducts sulfamethoxazole AdvReac Intermediate constipatio Verified 11/18/23 12:20 [From Bactrim] n trimethoprim [From Bactrim] AdvReac Intermediate constipatio Verified 11/18/23 12:20 n doxycycline AdvReac Tongue Verified 11/18/23 12:20 Swelling/Upset Stomach/Muscle Aches goats milk Allergy Swelling Uncoded 12/29/23 02:07 of Lip/Tongue/Throat Home Medications Medication Instructions Recorded Confirmed Type finasteride 5 mg tablet (Proscar) 5 mg PO QAM 07/21/19 12/29/23 History montelukast 10 mg tablet 10 mg PO QAM 07/21/19 12/29/23 History (Singulair) tamsulosin 0.4 mg capsule 0.4 mg PO QPM 07/21/19 12/29/23 History vit C 250 mg-E 90 mg-zinc 40 1 tab PO BID 08/29/22 12/29/23 History mg-copper 1 [id number]-[id number] chew tablet (PreserVision AREDS-2) acetaminophen 325 mg tablet 650 mg PO Q8H PRN Pain 11/18/23 12/29/23 History sennosides 8.6 mg tablet (Senokot) 8.6 mg PO QAM PRN Constipation 11/18/23 12/29/23 History atorvastatin 40 mg tablet 40 mg PO QAM 12/29/23 12/29/23 History Patient History Medical History Acute UTI Altered mental status Situational anxiety "Right now with my surgeries and my 's recent surgery" Family history of macular degeneration "Taking preservision for" Constipation "Uses Senokot to ease straining/stress to prostate" Complicated UTI (urinary tract infection) "Just picked up levofloxacin today" Hx of colonic polyp "I just have one" History of urinary retention No issues at this time 2016, prior to his TURP procedure History of herniated intervertebral disc no sx, therapy only Hx of bronchitis hx ~2009, given his inhaler at this time, has not used since he has bronchitis Hx of ulcerative colitis "Just an episode in " BPH (benign prostatic hyperplasia) Osteoarthritis History of allergic rhinitis Surgical History Hx of colonoscopy 2019 Hx of eye surgery [facility] Gurrola - left eye, for "lazy" eye History of bronchoscopy back in the ; for a foreign body in his lungs S/P TURP 11/2015, maxim[facility] Dietz H/O knee surgery 2000 left, tendon reattachment surgery History of dilation of urethra (~2000) Family History Father Cerebral infarction due to occlusion of cerebellar artery Social History Smoking Status: Never smoker Second Hand Exposure: No; Do You Dip or Chew Tobacco: No; Tobacco Cessation Education Requested by Patient: No Hx Alcohol Use: No Hx Substance Use: No Preferred Language: Romanian Communication Ability: Effective Communication Ability Comment: Difficulty finding words when upset Employment Counselor Required: No Beliefs That Will Affect Care: None marital status: Current Living Situation: Spouse current occupational status: retired Other Information That Helps Us Care for You: No Feels Safe at Home: Yes Safety Concerns: Feels Safe At This Time Assistive Devices: None Review of Systems Review of Systems: All systems reviewed & are unremarkable except as noted in HPI & below Physical Exam Constitutional: no acute distress Respiratory: no respiratory distress and no labored breathing Musculoskeletal: Head/Neck/Chest: normocephalic Skin: No visible rashes or lesions to exposed skin areas Neurologic: awake Psychiatric: Orientation: alert and cooperative Genitourinary: Ramires intact and draining clear yellow urine Results & Data Vital Signs (Past 12 Hours) Vital Signs Temp Pulse Pulse Resp BP Pulse Ox O2 Del Method 12/29/23 11:24 36.4 C L 74 16 122/75 99 Room Air 12/29/23 07:47 36.4 C L 70 17 131/76 98 Room Air 12/29/23 06:51 65 149/82 H 12/29/23 06:37 65 12/29/23 06:37 36.5 C 73 12 189/90 H 97 Room Air 12/29/23 05:48 Room Air 12/29/23 05:35 73 18 163/91 H 98 Room Air 12/29/23 05:03 70 12/29/23 04:36 64 18 177/97 H 99 Room Air 12/29/23 03:46 64 18 183/102 H 99 Room Air PG Care Time/CCT Total # of Minutes Spent Total Time Spent with Patient: Total time spent is greater than 50% in coordination of care (as documented) at patient's floor/unit and/or counseling patient: Coding Level of Care Code 52308 INT INP/OBS CARE 2/55MIN Diagnoses Acute urinary retention R33.8 Complicated UTI (urinary tract infection) N39.0
[2023-12-29] MEDS: SENNA 8.6 MG TAB PO PRN (14:21)
[2023-12-29] MEDS: TAMSULOSIN HCL 0.4 MG CAP PO SCH (18:46)
[2023-12-30 05:51] LABS: Basophils # (auto) 0.04 K/uL (0.00-0.20); Basophils % (auto) 0.5 %; Eosinophils # (auto) 0.56 K/uL (0.00-0.50); Eosinophils % (auto) 7.4 %; Immature Granulocytes # (auto) 0.05 K/uL (0.01-0.20); Immature Granulocytes % (auto) 0.7 %; Lymphocytes # (auto) 1.46 K/uL (1.20-3.40); Lymphocytes % (auto) 19.4 %; Mean Corpuscular Hemoglobin 30.9 pg (25.0-34.0); Mean Corpuscular Hgb Conc 34.9 g/dL (32.0-36.0); Mean Corpuscular Volume 88.5 fL (80.0-100.0); Mean Platelet Volume 9.9 fL (9.4-12.4); Monocytes # (auto) 1.05 K/uL (0.11-0.59); Neutrophils # (auto) 4.36 K/uL (1.40-6.50); Platelet Count 217 K/uL (130-400); RDW Coefficient of Variation 12.7 % (11.5-14.5); RDW Standard Deviation 41.5 fL (36.4-46.3); Red Blood Count 4.86 M/uL (4.70-6.10); White Blood Count 7.52 K/ul (4.8-10.8)
[2023-12-30 06:07] LABS: BUN Creatinine Ratio 20.5 (10-20); Calcium 8.9 mg/dl (8.6-10.3); Creatinine Clr Calc Pharmacy 102.9 ml/min; Est GFR (African American) 104.4 ml/min; Est GFR (Non-African American) 90.1 ml/min; Magnesium 2.2 mg/dl (1.7-2.4); Potassium 4.3 mmol/L (3.5-5.1)
[2023-12-30] MEDS: POLYETHYLENE (MIRALAX) 17 GM PACK PO SCH ×2 (08:56→15:25)
[2023-12-30] MEDS: ADVANCED PROBIOTIC 625 MG CAPSULE PO SCH (11:08)
--- NOTE | 2023-12-30 17:59 | Hospitalist Progress Note ---
Date of Service December 30, 2023 Assessment & Plan (1) Acute urinary retention: Plan: Per previous hospitalist notes with addendum: 78-year-old male with past medical history significant for hyperlipidemia, GERD, posttraumatic bulbous urethral stricture, BPH, lumbar degenerative disc disease, peripheral neuropathy comes because of urinary retention and also found to have UTI. Recently treated for Pseudomonas UTI. On December 20 he followed up with [facility] and Ramires was removed. And was advised to keep the appointment with Dr. Dietz on 02/09/2024. Today again he was not able to void and came to the ER. He was having abdominal discomfort. Bladder scan showed up to 500 mL residual and s/p Ramires which drained about 600 mL. Still has some abdominal discomfort. No headache. No chest pain. No nausea. No cough. Afebrile. Hemodynamics okay. Patient is somewhat hard of hearing and difficulty to get history. Seems resting comfortably. Acute urinary retention Recurrent History of BPH History of urethral stricture Status post Ramires Continue Flomax and Proscar 12/29 Keep Ramires catheter in place Follow-up with urology as an outpatient UTI History of Pseudomonas Urine culture: Staph aureus, sensitivities pending Continue cefepime IV History of disc herniation with radiculopathy Follow-up with orthospine and pain management Hyperlipidemia On statin DVT prophylaxis Heparin subcu Disposition Med/telemetry Full code Admission and Anticipated Discharge Date Admission Date: December 29, 2023 Subjective Follow-up for acute urinary retention, UTI, etc. Seen resting in bed side chair, comfortable, not in distress States he feels okay overall No issues with Ramires catheter, draining well No abdominal pain, nausea vomiting, flank pain, fevers or chills No other new symptoms Review of Systems Review of Systems: all noted and negative except for above Physical Exam Physical Exam: General- oriented x 3, not in distress, speaks in sentences with no effort or accessory muscle use Eyes- anicteric Neck- no JVD Lungs- clear breath sounds bilaterally, No crackles or wheeze Heart- normal rate, regular rhythm; no murmurs Abdomen- normal bowel sounds, nondistended, soft, No tenderness Ramires catheter in place: Draining yellow urine Extremities- no pretibial edema, no calf tenderness Neuro- alert, oriented x 3; no gross focal neurologic deficits Skin- warm & dry Results & Data Results & Data Vital Signs (Past 12 Hours) Vital Signs Temp Pulse Pulse Resp BP Pulse Ox O2 Del Method 12/30/23 15:15 36.4 C L 75 16 164/84 H 98 Room Air 12/30/23 14:06 64 12/30/23 11:13 36.4 C L 70 16 137/85 98 Room Air 12/30/23 07:47 36.6 C 68 16 148/83 H 98 Room Air 12/30/23 07:46 69
[2023-12-31] MEDS: MELATONIN 3 MG TAB PO PRN (02:11)
--- NOTE | 2023-12-31 18:01 | Hospitalist Progress Note ---
Date of Service December 31, 2023 delayed entry date of service noted above Assessment & Plan (1) Acute urinary retention: Plan: Per previous hospitalist notes with addendum: 78-year-old male with past medical history significant for hyperlipidemia, GERD, posttraumatic bulbous urethral stricture, BPH, lumbar degenerative disc disease, peripheral neuropathy comes because of urinary retention and also found to have UTI. Recently treated for Pseudomonas UTI. On December 20 he followed up with [facility] and Ramires was removed. And was advised to keep the appointment with Dr. Dietz on 02/09/2024. Today again he was not able to void and came to the ER. He was having abdominal discomfort. Bladder scan showed up to 500 mL residual and s/p Ramires which drained about 600 mL. Still has some abdominal discomfort. No headache. No chest pain. No nausea. No cough. Afebrile. Hemodynamics okay. Patient is somewhat hard of hearing and difficulty to get history. Seems resting comfortably. Acute urinary retention Recurrent History of BPH History of urethral stricture Status post Ramires Continue Flomax and Proscar 12/30 Keep Ram[address] catheter in place Follow-up with urology as an outpatient UTI History of Pseudomonas Urine culture: Staph aureus, Pansensitive Continue cefepime IV Transition to Augmentin on discharge History of disc herniation with radiculopathy Follow-up with orthospine and pain management Hyperlipidemia On statin DVT prophylaxis Heparin subcu Disposition Med/telemetry Full code Admission and Anticipated Discharge Date Admission Date: December 29, 2023 Subjective Follow-up for UTI, urinary retention, etc. Seen resting in bedside chair, comfortable, not in distress States he feels somewhat tired Chief complaint is constipation Straining with bowel movement No abdominal pain, nausea vomiting, fevers or chills No issues Ramires catheter No other new symptoms Review of Systems Review of Systems: all noted and negative except for above Physical Exam Physical Exam: General- oriented x 3, not in distress, speaks in sentences with no effort or accessory muscle use Eyes- anicteric Neck- no JVD Lungs- clear breath sounds bilaterally, no rales/wheezes Heart- normal rate, regular rhythm; no murmurs Abdomen- normal bowel sounds, nondistended, soft, nontender Extremities- no pretibial edema, no calf tenderness Ramires catheter in place: Draining yellow urine Neuro- alert, oriented x 3; no gross focal neurologic deficits Skin- warm & dry Results & Data Results & Data Vital Signs (Past 12 Hours) Vital Signs Temp Pulse Pulse Resp BP BP Pulse Ox 12/31/23 15:26 36.5 C 83 16 118/76 98 12/31/23 15:24 80 12/31/23 11:26 36.4 C L 86 20 107/71 98 12/31/23 07:56 36.5 C 73 18 155/84 H 98 12/31/23 07:40 69 O2 Del Method 12/31/23 15:26 Room Air 12/31/23 15:24 12/31/23 11:26 Room Air 12/31/23 07:56 Room Air 12/31/23 07:40 all noted and reviewed including below
[2024-01-01 07:10] LABS: Hematocrit (blood only) 43.2 % (42.0-52.0); Hemoglobin 14.9 g/dl (14.0-18.0); Mean Corpuscular Hemoglobin 30.1 pg (25.0-34.0); Mean Corpuscular Hgb Conc 34.5 g/dL (32.0-36.0); Mean Corpuscular Volume 87.3 fL (80.0-100.0); Mean Platelet Volume 10.3 fL (9.4-12.4); Platelet Count 207 K/uL (130-400); RDW Coefficient of Variation 12.6 % (11.5-14.5); RDW Standard Deviation 39.9 fL (36.4-46.3); Red Blood Count 4.95 M/uL (4.70-6.10); White Blood Count 7.13 K/ul (4.8-10.8)
[2024-01-01 08:16] VITALS: RESP 20
[2024-01-01 11:28] VITALS: TEMP 97.3; O2SAT 96
[2024-01-01 14:46] VITALS: BP 126/80; PULSE 70
--- NOTE | 2024-01-01 18:26 | Discharge Summary ---
Discharge Summary Date of Service January 01, 2024 Principal Dx & Hospital Course #1 = Principal Diagnosis (1) Acute urinary retention: Per previous hospitalist notes with addendum: 78-year-old male with past medical history significant for hyperlipidemia, GERD, posttraumatic bulbous urethral stricture, BPH, lumbar degenerative disc disease, peripheral neuropathy comes because of urinary retention and also found to have UTI. Recently treated for Pseudomonas UTI. On December 20 he followed up with [facility] and Benavides was removed. And was advised to keep the appointment with Dr. Hooks on 02/09/2024. Today again he was not able to void an d came to the ER. He was having abdominal discomfort. Bladder scan showed up to 500 mL residual and s/p Benavides which drained about 600 mL. Still has some abdominal discomfort. No headache. No chest pain. No nausea. No cough. Afebrile. Hemodynamics okay. Patient is somewhat hard of hearing and difficulty to get history. Seems resting comfortably. Acute urinary retention Recurrent History of BPH History of urethral stricture Status post Benavides Continue Flomax and Proscar 12/30 Keep Benavides catheter in place Follow-up with urology as an outpatient UTI History of Pseudomonas Urine culture: Staph aureus, Pansensitive Continue cefepime IV Transition to Augmentin on discharge History of disc herniation with radiculopathy Follow-up with orthospine and pain management Hyperlipidemia On statin DVT prophylaxis Heparin subcu Disposition Med/telemetry Full code Admission HPI Per Admitting Provider 78-year-old male with past medical history significant for hyperlipidemia, GERD, posttraumatic bulbous urethral stricture, BPH, lumbar degenerative disc disease, peripheral neuropathy comes because of urinary retention and also found to have UTI. Recently treated for Pseudomonas UTI. On December 20 he followed up with [facility] and Benavides was removed. And was advised to keep the appointment with Dr. Hooks on 02/09/2024. Today again he was not able to void and came to the ER. He was having abdominal discomfort. Bladder scan showed up to 500 mL residual and s/p Benavides which drained about 600 mL. Still has some abdominal discomfort. No headache. No chest pain. No nausea. No cough. Afebrile. Hemodynamics okay. Patient is somewhat hard of hearing and difficulty to get history. Seems resting comfortably. Past medical history. As mentioned above Past surgical history. Colonoscopy. Cystourethroscopy. EGD. Injection of lumbosacral spine. TURP. Tonsillectomy. Strabismus surgery. Revision of urinary tract. Social history. . No smoking. Alcohol rarely. No drug use. Family history. Brother has Alzheimer's disease. Brother has Parkinsonism Updated Medication List Medication Instructions Recorded Confirmed Type finasteride 5 mg tablet (Proscar) 5 mg PO QAM 07/21/19 12/29/23 History montelukast 10 mg tablet 10 mg PO QAM 07/21/19 12/29/23 History (Singulair) tamsulosin 0.4 mg capsule 0.4 mg PO QPM 07/21/19 12/29/23 History vit C 250 mg-E 90 mg-zinc 40 1 tab PO BID 08/29/22 12/29/23 History mg-copper 1 tu-[id number]-bdfczv chew tablet (PreserVision AREDS-2) acetaminophen 325 mg tablet 650 mg PO Q8H PRN Pain 11/18/23 12/29/23 History sennosides 8.6 mg tablet (Senokot) 8.6 mg PO QAM PRN Constipation 11/18/23 12/29/23 History atorvastatin 40 mg tablet 40 mg PO QAM 12/29/23 12/29/23 History amoxicillin 875 mg-potassium 1 tab PO BID #12 tabs 01/01/24 Rx clavulanate 125 mg tablet polyethylene glycol 3350 17 gram 17 g PO DAILY 30 days #30 ea 01/01/24 Rx oral powder packet (Miralax) Hospital Stay Data Consultations 12/29/23 03:58 ED Decision to Admit Stat 12/29/23 08:48 Consult Urology Routine Pending Results Patient Have Any Pending Studies at Discharge: No Discharge Instructions Given to Patient (Per Discharging Provider) PLEASE REFER TO YOUR NEW MEDICATION LIST AND FOLLOW INSTRUCTIONS CAREFULLY. YOUR NEW MEDICATIONS INCLUDE: Augmetin- antibiotic for urinary tract infection Please take a probiotic daily for at least 1 month. Miralax- stool softener Continue having kefir, yogurt daily. PLEASE MAINTAIN YOUR BENAVIDES CATHETER IN PLACE UNTIL RE-EVALUATED BY DR. HOOKS NEXT MONTH. PLEASE CALL YOUR PRIMARY CARE PHYSICIAN OR RETURN TO THE ER IF WITH WORSENING OF SYMPTOMS, INCLUDING PROBLEMS WITH BENAVIDES CATHETER, BLOOD IN THE URINE, FEVER/CHILLS, ABDOMINAL/FLANK/BACK PAIN, ETC FOLLOW UP WITH PRIMARY CARE PHYSICIAN OUTLINED ABOVE. FOLLOW UP WITH [facility] UROLOGIST DR. HOOKS SCHEDULED NEXT MONTH.
== END 2024-01-01 15:41 | disposition home or self-care (01) | DRG 690 ==
LOC: ED 00:52 → 2N 04:36 → SUATTDRO 04:36 → 2N 05:48
DX: K21.9 Gastro-esophageal reflux disease without esophagitis; M51.36 Other intervertebral disc degeneration, lumbar region; E78.5 Hyperlipidemia, unspecified; R33.9 Retention of urine, unspecified; N39.0 Urinary tract infection, site not specified; B95.61 Methicillin susceptible Staphylococcus aureus infection as the cause of diseases classified elsewhere; N40.1 Benign prostatic hyperplasia with lower urinary tract symptoms; Z88.1 Allergy status to other antibiotic agents; Z88.2 Allergy status to sulfonamides; N35.011 Post-traumatic bulbous urethral stricture; M51.16 Intervertebral disc disorders with radiculopathy, lumbar region

== ENCOUNTER 2024-03-30 14:56 | Inpatient (IN) ==
--- NOTE | 2024-03-30 15:05 | Emergency Department Note ---
Impression & Plan Complicated UTI (urinary tract infection), Acute confusion, Acute metabolic encephalopathy, Decreased vision of right eye ED Provider Note NAME: HARIS HERNANDEZ AGE: 78 SEX: M : 1945 ARRIVES VIA: Ambulance INFORMANT: Patient, ED PROVIDER(S): Robb Stafford MD CHIEF COMPLAINT: Confusion MEDICAL DECISION MAKING: Patient presents due to concern for confusion as well as changes in right eye vision. I did speak with Dr. Klein with optometry at [facility] as well. CT of the head was ordered along with blood work. ESR and CRP added. Patient with a normal white count H&H and platelet count. The patient's kidney function is unremarkable. Urinalysis does show concern for possible infection. Given the patient's prior urine cultures the patient was ordered daptomycin as well as cefepime. Given the patient's concomitant right eye changes. I did speak the on-call hospitalist service Raina Mcbride PA-C and the patient was admitted by Dr. Yee. Discussion w/ other healthcare providers: Dr. Klein optometry Raina Mcbride PA-C and Dr. Yee inpatient medicine service Prior /Outside records reviewed: I reviewed part of a discharge summary from Dr. Cochran from January 01, 2024 patient was admitted for acute urinary retention known history of hyperlipidemia GERD posttraumatic bulbous urethral stricture BPH peripheral neuropathy and likely UTI at the time of his presentation. Patient was treated initially with IV cefepime and transition to Augmentin. Differential diagnosis: Infection, dehydration, metabolic abnormality, hypo/hyperglycemia, electrolyte imbalance, anemia, UTI, pneumonia, thyroid dysfunction among others were considered. Diagnostics, as interpreted by me: ECG: Normal sinus rhythm, rate of 71, normal intervals, normal axis no ST elevations. Cardiac monitoring: An order was placed for continuous cardiac monitoring. The monitor shows a rate of 69 with sinus rhythm. Patient was placed on pulse oximetry Medical decision rules: None Imaging studies: I informally interpreted the patient's CT head does not show obvious ICH with formal report to follow. HPI: Patient presents due to concern for dizziness. Patient reports that he noticed this earlier today. Patient reportedly states that he saw some cobwebs in his right vision which seem to extinguish when he turned on the light. Patient states that he did have an eye appointment today and then subsequently referred here. Patient denies any chest pains or shortness of breath. Patient denies any neck pain. I think gather further history from Dr. Klein who saw him today she was concerned about ischemic optic neuropathy as the patient only has perception to light in the right eye compared to being 2024 about a week ago. She states that he does have a swollen optic nerve and was concerned about stroke versus possible giant cell arteritis. No reported jaw claudication. She will follow- up with him in 1 week. PAST MEDICAL HISTORY: See Below PAST SURGICAL HISTORY: See Below SOCIAL HISTORY: See Below HOME MEDICATIONS: See Below ALLERGIES: See Below VITALS: See Below PHYSICAL EXAMINATION: GENERAL: NAD, non-toxic. EYE EXAM: Normal conjunctiva. PERRL, no anisocoria and EOM's grossly intact w/o pain. OROPHARYNX: Moist mucus membranes, grossly normal dentition. NECK: Trachea midline, no stridor. LUNGS: Clear to auscultation. Normal chest wall mechanics. HEART: NSR, no MRG. ABDOMEN: Abdomen soft, non-tender, no masses, no rebound or guarding. BACK: No CVA TTP. SKIN: No rashes and no bruising. UPPER EXTREMITIES: Upper extremities are grossly normal. LOWER EXTREMITIES: Grossly normal, no edema. NEURO EXAM: A&O x3, cranial nerves II-XII grossly intact, normal speech, moves all 4 extremities. Past Med/Surg History Problem List (Updated 03/30/24 @ 23:17 by Robb Stafford MD) Decreased vision of right eye (Acute) Acute metabolic encephalopathy (Acute) Acute confusion (Acute) Hypertensive urgency Optic nerve swelling Visual changes Acute delirium (Acute) Acute UTI (Acute) Lumbar disc herniation with radiculopathy Pseudomonas infection (Acute) Complicated UTI (urinary tract infection) (Acute) Abnormal CT scan of lung Urinary tract infection (Acute) Urinary retention (Acute) Urethral stricture (Acute) Constipation (Acute) Complication of catheter (Acute) Complication of catheter (Acute) Back strain (Acute) Back pain (Acute) BPH (benign prostatic hypertrophy) (Acute) Abdominal pain (Acute) Medical History Acute UTI Altered mental status Situational anxiety "Right now with my surgeries and my 's recent surgery" Family history of macular degeneration "Taking preservision for" Constipation "Uses Senokot to ease straining/stress to prostate" Complicated UTI (urinary tract infection) "Just picked up levofloxacin today" Hx of colonic polyp "I just have one" History of urinary retention No issues at this time 2016, prior to his TURP procedure History of herniated intervertebral disc no sx, therapy only Hx of bronchitis hx ~2009, given his inhaler at this time, has not used since he has bronchitis Hx of ulcerative colitis "Just an episode in " BPH (benign prostatic hyperplasia) Osteoarthritis History of allergic rhinitis Surgical History Hx of colonoscopy 2018 Hx of eye surgery drake Gurrola - left eye, for "lazy" eye History of bronchoscopy back in the ; for a foreign body in his lungs S/P TURP 11/2015, marybel Dietz H/O knee surgery 2000 left, tendon reattachment surgery History of dilation of urethra (~2000) Family History Father Cerebral infarction due to occlusion of cerebellar artery Social History Smoking Status: Smoker, status unknown Second Hand Exposure: No; Do You Dip or Chew Tobacco: No; Hx Alcohol Use: No Hx Substance Use: No Preferred Language: Irish Communication Ability: Effective Communication Ability Comment: Difficulty finding words when upset Vice President Quality Required: No Beliefs That Will Affect Care: None marital status: Current Living Situation: Spouse current occupational status: retired Feels Safe at Home: Yes Assistive Devices: Cane Allergies Allergies Allergy/AdvReac Type Severity Reaction Status Date / Time celecoxib [From Celebrex] AdvReac Intermediate Diarrhea Verified 11/18/23 12:20 duloxetine AdvReac Intermediate Chest Verified 11/18/23 12:20 tightness, diarrhea gabapentin AdvReac Intermediate dried out Verified 11/18/23 12:20 tear ducts omeprazole AdvReac Intermediate constipatio Verified 11/18/23 12:20 n pregabalin [From Lyrica] AdvReac Intermediate dried out Verified 11/18/23 12:20 tear ducts sulfamethoxazole AdvReac Intermediate constipatio Verified 11/18/23 12:20 [From Bactrim] n trimethoprim [From Bactrim] AdvReac Intermediate constipatio Verified 11/18/23 12:20 n doxycycline AdvReac Tongue Verified 11/18/23 12:20 Swelling/Upset Stomach/Muscle Aches goats milk Allergy Swelling Uncoded 12/29/23 02:07 of Lip/Tongue/Throat Home Meds Home Medications Medication Instructions Recorded Confirmed finasteride 5 mg tablet (Proscar) 5 mg PO QAM 07/21/19 03/30/24 montelukast 10 mg tablet 10 mg PO QAM 07/21/19 03/30/24 (Singulair) tamsulosin 0.4 mg capsule 0.4 mg PO QPM 07/21/19 03/30/24 vit C 250 mg-E 90 mg-zinc 40 1 tab PO BID 08/29/22 03/30/24 mg-copper 1 [id number] chew tablet (PreserVision AREDS-2) acetaminophen 325 mg tablet 650 mg PO Q8H PRN Pain 11/18/23 03/30/24 sennosides 8.6 mg tablet (Senokot) 8.6 mg PO QAM PRN Constipation 11/18/23 03/30/24 Previous Rx's Medication Instructions Recorded polyethylene glycol 3350 17 gram 17 g PO DAILY 30 days #30 ea 01/01/24 oral powder packet (Miralax) Results & Data (ED) Vital Signs Vital Signs - 24 hr 03/30/24 15:02 03/30/24 15:10 03/30/24 15:10 Temperature 36.7 C Temperature Source Oral Pulse Rate 70 Pulse Rate [Finger] 70 Respiratory Rate 18 18 Blood Pressure 174/106 H Blood Pressure [Left Arm] 174/106 H Blood Pressure Mean 128 Blood Pressure Mean [Left Arm] 128 Pulse Oximetry 97 100 100 Oxygen Delivery Method Room Air Room Air Sepsis Recent Fever Within 48 Hours No Sepsis New/Unexplained Change in Mental Status N/A Sepsis Action Taken by Nursing No Action Required 03/30/24 15:45 Temperature Temperature Source Pulse Rate 74 Pulse Rate [Finger] Respiratory Rate Blood Pressure Blood Pressure [Left Arm] Blood Pressure Mean Blood Pressure Mean [Left Arm] Pulse Oximetry Oxygen Delivery Method Sepsis Recent Fever Within 48 Hours Sepsis New/Unexplained Change in Mental Status Sepsis Action Taken by Custodial Medications Current Medication List: was personally reviewed by me Laboratory Data Attestation: I reviewed the patient's lab results. 03/30/24 15:47 03/30/24 15:47 Lab Results 03/30/24 Range/Units 15:47 WBC 7.23 (4.8-10.8) K/ul RBC 5.33 (4.70-6.10) M/uL Hgb 16.3 (14.0-18.0) g/dl Hct 48.0 (42.0-52.0) % MCV 90.1 (80.0-100.0) fL MCH 30.6 (25.0-34.0) pg MCHC 34.0 (32.0-36.0) g/dL RDW Std Deviation 42.7 (36.4-46.3) fL RDW Coeff of Maddy 13.0 (11.5-14.5) % Plt Count 199 (130-400) K/uL MPV 10.1 (9.4-12.4) fL Immature Gran % (Auto) 0.4 % Neut % (Auto) 73.0 % Lymph % (Auto) 15.5 % [place] % (Auto) 9.7 % Eos % (Auto) 1.0 % Baso % (Auto) 0.4 % Neut # (Auto) 5.28 (1.40-6.50) K/uL Lymph # (Auto) 1.12 L (1.20-3.40) K/uL [place] # (Auto) 0.70 H (0.11-0.59) K/uL Eos # (Auto) 0.07 (0.00-0.50) K/uL Baso # (Auto) 0.03 (0.00-0.20) K/uL Immature Gran # (Auto) 0.03 (0.01-0.20) K/uL ESR 18 (0-20) mm/hr Sodium 138 (136-145) mmol/L Potassium 3.8 (3.5-5.1) mmol/L Chloride 104 (98-107) mmol/L Carbon Dioxide 27 (21-32) mmol/L Anion Gap 7 (3-11) BUN 14 (6-23) mg/dl Creatinine 0.79 (0.6-1.4) mg/dl Est Cr Clr Drug Dosing 95.1 ml/min eGFR 92.07 BUN/Creatinine Ratio 17.7 (10-20) Glucose 92 (70-99(Fasting)) mg/dl Calcium 9.3 (8.6-10.3) mg/dl Magnesium 2.0 (1.7-2.4) mg/dl Total Bilirubin 0.7 (0.2-1.0) mg/dl AST 14 (13-39) U/L ALT 14 (7-52) U/L Alkaline Phosphatase 58 (34-104) U/L C-Reactive Protein < 0.50 (0-0.5) mg/dl Total Protein 7.3 (6.0-8.3) gm/dl Albumin 4.2 (3.4-5.0) gm/dl Globulin 3.1 (2.5-4.0) gm/dl Albumin/Globulin Ratio 1.4 (0.9-2) TSH 0.917 (0.300-4.500) uIu/ml Urine Color Yellow Urine Appearance Clear (Clear) Urine pH 7.0 (4.5-7.5) Ur Specific [place] 1.008 (1.000-1.030) Urine Protein Negative (Negative) Urine Glucose (UA) Negative (Negative) Urine Ketones Negative (Negative) Urine Blood Negative (Negative) Urine Nitrite Negative (Negative) Urine Bilirubin Negative (Negative) Urine Urobilinogen Negative (Negative) Ur Leukocyte Esterase 3+ H (Negative) Urine WBC (Auto) >50 H (0-5) /hpf Urine RBC (Auto) 0-2 (0-2) /hpf U Hyaline Cast (Auto) 0-2 (0-2) /lpf U Epithel Cells (Auto) 0-2 (0-2) /hpf Urine Bacteria (Auto) 3+ H (None Seen) Administered Medications Discontinued Medications Aspirin (Aspirin Chew 324 Mg) 324 mg PO NOW STA Stop: 03/30/24 18:48 Last Admin: 03/30/24 19:06 Dose: 324 mg Documented By: HAN Gadobutrol (Gadobutrol 65ml Vial) 10 ml IV ONCE ONE Stop: 03/30/24 18:53 Last Admin: 03/30/24 18:45 Dose: 10 ml Documented By: NAHEED Cefepime HCl (Maxipime 2000mg) 2,000 mg in 20 mls @ 5 mls/min IV NOW STA; Protocol Stop: 03/30/24 17:20 Last Admin: 03/30/24 17:41 Dose: 5 mls/min Documented By: HAN Daptomycin 350 mg/ Syringe 7 mls @ 3.5 mls/min IV NOW STA; Protocol Stop: 03/30/24 17:18 Last Admin: 03/30/24 18:21 Dose: 3.5 mls/min Documented By: HAN Acetaminophen (Ofirmev) 1,000 mg in 100 mls @ 400 mls/hr IV NOW STA Stop: 03/30/24 18:05 Last Infusion: 03/30/24 18:35 Dose: Infused Documented By: Admin: 03/30/24 18:16 Dose: 400 mls/hr Documented By: HAN Prednisone (Prednisone 20 Mg Tab) 60 mg PO NOW STA Stop: 03/30/24 18:00 Last Admin: 03/30/24 18:11 Dose: Not Given Documented By: HAN Prednisone (Prednisone 20 Mg Tab) 40 mg PO NOW STA Stop: 03/30/24 18:03 Last Admin: 03/30/24 18:16 Dose: 40 mg Documented By: HAN Imaging Data Radiologist's Impression: Head CT 03/30/24 15:53 EXAM: CT Head Without Intravenous Contrast INDICATION: Right visual changes. TECHNIQUE: Axial computed tomography images of the head/brain without intravenous contrast. Sagittal and/or coronal reformats are provided. Sagittal and coronal reformatted images were created and reviewed. This CT exam was performed using one or more of the following dose reduction techniques: automated exposure control, adjustment of the mA and/or kV according to patient size, and/or use of iterative reconstruction technique. COMPARISON: 11/26/2023 FINDINGS: Limitations: None. Brain and extra-axial spaces: There is age appropriate cortical atrophy and chronic ischemic periventricular white matter hypodensity. No acute infarct, hemorrhage or mass noted. Bones/joints: No acute changes. Soft tissues: No significant abnormality noted. Vasculature: Atherosclerotic calcification of the intracranial vertebral and carotid arteries. Sinuses: No layering fluid in the visualized portions of the paranasal sinuses. Mastoid air cells: No mastoid effusion. Orbits: No significant abnormality noted. IMPRESSION: Cerebral atrophy. No acute changes. ACT 112: Negative or not required by law. Electronically signed by Renee Roberts 03-30-2024 5:25 PM Discharge Plan Visit Data Chief Complaint: Illness Stated Complaint: DIZZINESS ED Provider: Robb Stafford Discharge Problem: Complicated UTI (urinary tract infection), Acute confusion, Acute metabolic encephalopathy, Decreased vision of right eye Patient Disposition: Admitted As Inpatient Discharge Instructions Interventions: ED Discharge Assessment Last Done: 03/30/24 20:02
[2024-03-30 16:06] LABS: Appearance Urine Clear (Clear); Bacteria Urine Automated 3+ (None Seen); Bilirubin Urine Negative (Negative); Blood Urine Negative (Negative); Cast Urine Automated 0-2 /lpf (0-2); Color Urine Yellow; Epithelial Cell Urine Auto 0-2 /hpf (0-2); Glucose Urine UA Negative (Negative); Ketones Urine Negative (Negative); Leukocyte Esterase Urine 3+ (Negative); Nitrite Urine Negative (Negative); Protein Urine Negative (Negative); RBC Urine Automated 0-2 /hpf (0-2); Specific Gravity Urine 1.008 (1.000-1.030); Urobilinogen Urine Negative (Negative); WBC Urine Automated >50 /hpf (0-5)
[2024-03-30 16:10] LABS: Basophils # (auto) 0.03 K/uL (0.00-0.20); Basophils % (auto) 0.4 %; Eosinophils # (auto) 0.07 K/uL (0.00-0.50); Hemoglobin 16.3 g/dl (14.0-18.0); Immature Granulocytes # (auto) 0.03 K/uL (0.01-0.20); Immature Granulocytes % (auto) 0.4 %; Lymphocytes # (auto) 1.12 K/uL (1.20-3.40); Lymphocytes % (auto) 15.5 %; Mean Corpuscular Hemoglobin 30.6 pg (25.0-34.0); Mean Corpuscular Volume 90.1 fL (80.0-100.0); Mean Platelet Volume 10.1 fL (9.4-12.4); Monocytes % (auto) 9.7 %; Neutrophils # (auto) 5.28 K/uL (1.40-6.50); Platelet Count 199 K/uL (130-400); RDW Standard Deviation 42.7 fL (36.4-46.3); Red Blood Count 5.33 M/uL (4.70-6.10); White Blood Count 7.23 K/ul (4.8-10.8)
[2024-03-30 16:22] LABS: Alanine Aminotransferase 14 U/L (7-52); Albumin Globulin Ratio 1.4 (0.9-2); Albumin Level 4.2 gm/dl (3.4-5.0); Alkaline Phosphatase 58 U/L (34-104); Anion Gap 7 (3-11); Aspartate Aminotransferase 14 U/L (13-39); BUN Creatinine Ratio 17.7 (10-20); Bilirubin,Total 0.7 mg/dl (0.2-1.0); Blood Urea Nitrogen 14 mg/dl (6-23); Calcium 9.3 mg/dl (8.6-10.3); Carbon Dioxide 27 mmol/L (21-32); Chloride 104 mmol/L (98-107); Creatinine Clr Calc Pharmacy 95.1 ml/min; Globulin 3.1 gm/dl (2.5-4.0); Glucose 92 mg/dl (70-99(Fasting)); Potassium 3.8 mmol/L (3.5-5.1); Sodium 138 mmol/L (136-145); Total Protein 7.3 gm/dl (6.0-8.3)
--- NOTE | 2024-03-30 16:25 | CT Scan Report ---
EXAM: CT Head Without Intravenous Contrast INDICATION: Right visual changes. TECHNIQUE: Axial computed tomography images of the head/brain without intravenous contrast. Sagittal and/or coronal reformats are provided. Sagittal and coronal reformatted images were created and reviewed. This CT exam was performed using one or more of the following dose reduction techniques: automated exposure control, adjustment of the mA and/or kV according to patient size, and/or use of iterative reconstruction technique. COMPARISON: 11/26/2023 FINDINGS: Limitations: None. Brain and extra-axial spaces: There is age appropriate cortical atrophy and chronic ischemic periventricular white matter hypodensity. No acute infarct, hemorrhage or mass noted. Bones/joints: No acute changes. Soft tissues: No significant abnormality noted. Vasculature: Atherosclerotic calcification of the intracranial vertebral and carotid arteries. Sinuses: No layering fluid in the visualized portions of the paranasal sinuses. Mastoid air cells: No mastoid effusion. Orbits: No significant abnormality noted. IMPRESSION: Cerebral atrophy. No acute changes. ACT 112: Negative or not required by law. Electronically signed by Renee Roberts 03-30-2024 5:25 PM
[2024-03-30 16:36] LABS: Thyroid Stimulating Hormone 0.917 uIu/ml (0.300-4.500)
--- NOTE | 2024-03-30 17:40 | History & Physical Report ---
Date of Service March 30, 2024 Assessment & Plan (1) Visual changes: (2) Optic nerve swelling: (3) Hypertensive urgency: (4) Acute UTI: Plan This is a 78 year old male who has a significant PMH of BPH, lumbar disc herniation with radiculopathy, peripheral neuropathy, UTIs who presented to the ED due to referral from opthal due to swelling of optic nerve in setting of vision changes and GEORGE. Acute visual changes to R eye Optic nerve swelling - per ophthalmology evaluation today (normal exam 1 week ago) Hypertensive urgency admit to tele Pt seen in Opthal clinic today due to R visual changes, "something cover eye, seeing cobbwebs, with associated posterior GEORGE." No temporal tenderness, ESR/CRP negative - Opthal initially a concerned for possible GCA vs Ischemic optic neuropathy Empiric prednisone 40mg daily Stroke work up with MRI brain, carotid Doppler, echo, PT/OT/ST, lipids, a1c, Neuro consult allow permissive HTN due to concern for CVA, will not treat unless > 220/110 Acute complicated UTI hx of recurrent UTI in the past Pt asymptomatic, hx of pseudomonas and MSSA continue empiric cefepime for now with probiotic await urine culture pt will need to [place] [facility] [place] U[place] DVT ppx: lovenox FULL CODE PCP: Joe wu Dispo: admit to tele, stroke w/u and await urine culture Pt was seen and examined in collaboration with Dr. Yee, please see addendum I spent a total of 55 minutes reviewing notes, outpatient records, labs, medication, coordinating, documenting and providing care for this patient excluding time spent in the performance of separately billed services. History of Present Illness Chief Complaint: Referred by forestry technician. Primary Care Provider: John Wu, This is a 78 year old male who has a significant PMH of BPH, lumbar disc herniation with radiculopathy, peripheral neuropathy, UTIs who presented to the ED due to referral from opthal due to swelling of optic nerve in setting of vision changes and GEORGE. Pt presents to hospital due to a referral from forestry technician. He was at his eye Dr today due to inability to see out of his R eye. He was seen at [facility] today. He was seeing cobwebs out of his right eye that started a few days ago. His sx would come and go. Currently he feels like there is a covering over his R eye. When he closes his R eye he is seeing stars in his L eye. He is complaining of a headache that is located in the posterior aspect of his head. He denies any temporal pain. He denies any weakness in his arms/legs or numbness. He denies any facial droop, dysphasia or trouble swallowing. He reports hx of 5-6 UTIs. "Why do I keep getting UTIS?" He is following with a urologist in [place]. He denies any dysuria, increased urg/freq with urination and hematuria. He denies any fever but complains of fever. He denies any chest pain or SOB. His reports increased confusion over the past 3-4 days which tends to be the first sign he is getting a UTI. He has chronic foot pain due to arthritis. Overall his appetite has been poor. Hx obtain from pt and over the phone. According to ER Physician who spoke to the forestry technician pt had a dilated eye exam today. There was concern for Right optic nerve swelling and concern for possible Stroke vs GCA which is why they referred him to the ED. Pt was seen in clinic 1 week ago and vision in R eye was 20/25 and today only had perception to light. Allergies Allergy/AdvReac Type Severity Reaction Status Date / Time celecoxib [From Celebrex] AdvReac Intermediate Diarrhea Verified 11/18/23 12:20 duloxetine AdvReac Intermediate Chest Verified 11/18/23 12:20 tightness, diarrhea gabapentin AdvReac Intermediate dried out Verified 11/18/23 12:20 tear ducts omeprazole AdvReac Intermediate constipatio Verified 11/18/23 12:20 n pregabalin [From Lyrica] AdvReac Intermediate dried out Verified 11/18/23 12:20 tear ducts sulfamethoxazole AdvReac Intermediate constipatio Verified 11/18/23 12:20 [From Bactrim] n trimethoprim [From Bactrim] AdvReac Intermediate constipatio Verified 11/18/23 12:20 n doxycycline AdvReac Tongue Verified 11/18/23 12:20 Swelling/Upset Stomach/Muscle Aches goats milk Allergy Swelling Uncoded 12/29/23 02:07 of Lip/Tongue/Throat Home Medications Medication Instructions Recorded Confirmed Type finasteride 5 mg tablet (Proscar) 5 mg PO QAM 07/21/19 03/30/24 History montelukast 10 mg tablet 10 mg PO QAM 07/21/19 03/30/24 History (Singulair) tamsulosin 0.4 mg capsule 0.4 mg PO QPM 07/21/19 03/30/24 History vit C 250 mg-E 90 mg-zinc 40 1 tab PO BID 08/29/22 03/30/24 History mg-copper 1 [id number]-[id number] chew tablet (PreserVision AREDS-2) acetaminophen 325 mg tablet 650 mg PO Q8H PRN Pain 11/18/23 03/30/24 History sennosides 8.6 mg tablet (Senokot) 8.6 mg PO QAM PRN Constipation 11/18/23 03/30/24 History polyethylene glycol 3350 17 gram 17 g PO DAILY 30 days #30 ea 01/01/24 03/30/24 Rx oral powder packet (Miralax) Past Med/Surg History Problem List Hypertensive urgency Optic nerve swelling Visual changes Acute delirium (Acute) Acute UTI (Acute) Lumbar disc herniation with radiculopathy Pseudomonas infection (Acute) Complicated UTI (urinary tract infection) Abnormal CT scan of lung Urinary tract infection (Acute) Urinary retention (Acute) Urethral stricture (Acute) Constipation (Acute) Complication of catheter (Acute) Complication of catheter (Acute) Back strain (Acute) Back pain (Acute) BPH (benign prostatic hypertrophy) (Acute) Abdominal pain (Acute) Medical History Acute UTI Altered mental status Situational anxiety "Right now with my surgeries and my 's recent surgery" Family history of macular degeneration "Taking preservision for" Constipation "Uses Senokot to ease straining/stress to prostate" Complicated UTI (urinary tract infection) "Just picked up levofloxacin today" Hx of colonic polyp "I just have one" History of urinary retention No issues at this time 2016, prior to his TURP procedure History of herniated intervertebral disc no sx, therapy only Hx of bronchitis hx ~2009, given his inhaler at this time, has not used since he has bronchitis Hx of ulcerative colitis "Just an episode in " BPH (benign prostatic hyperplasia) Osteoarthritis History of allergic rhinitis Surgical History Hx of colonoscopy 2018 Hx of eye surgery Maximilian Gurrola - left eye, for "lazy" eye History of bronchoscopy back in the 1989'; for a foreign body in his lungs S/P TURP 11/2015, maximilian Dietz H/O knee surgery 2000 left, tendon reattachment surgery History of dilation of urethra (~2000) Family History Father Cerebral infarction due to occlusion of cerebellar artery Social History Smoking Status: Smoker, status unknown Second Hand Exposure: No; Do You Dip or Chew Tobacco: No; Hx Alcohol Use: No Hx Substance Use: No Preferred Language: Chinese Communication Ability: Effective Communication Ability Comment: Difficulty finding words when upset Sailing Master Required: No Beliefs That Will Affect Care: None marital status: Current Living Situation: Spouse current occupational status: retired Feels Safe at Home: Yes Assistive Devices: Cane Review of Systems Review of Systems: All systems reviewed & are unremarkable except as noted in HPI & below Physical Exam Physical Exam: please refer to Dr. Yee addendum for physical exam findings. Results & Data Results & Data Vital Signs (Past 12 Hours) Vital Signs Temp Pulse Pulse Resp BP BP Pulse Ox 03/30/24 15:45 74 03/30/24 15:10 70 18 174/106 H 100 03/30/24 15:10 36.7 C 70 18 174/106 H 100 03/30/24 15:02 97 O2 Del Method 03/30/24 15:45 03/30/24 15:10 03/30/24 15:10 Room Air 03/30/24 15:02 Room Air Laboratory Results I have independently reviewed and interpreted patient's admitting labs including CBC, CMP, PTT, PT/INR, mag and troponin. Diagnostic Findings Head CT 03/30/24 15:53 EXAM: CT Head Without Intravenous Contrast INDICATION: Right visual changes. TECHNIQUE: Axial computed tomography images of the head/brain without intravenous contrast. Sagittal and/or coronal reformats are provided. Sagittal and coronal reformatted images were created and reviewed. This CT exam was performed using one or more of the following dose reduction techniques: automated exposure control, adjustment of the mA and/or kV according to patient size, and/or use of iterative reconstruction technique. COMPARISON: 11/26/2023 FINDINGS: Limitations: None. Brain and extra-axial spaces: There is age appropriate cortical atrophy and chronic ischemic periventricular white matter hypodensity. No acute infarct, hemorrhage or mass noted. Bones/joints: No acute changes. Soft tissues: No significant abnormality noted. Vasculature: Atherosclerotic calcification of the intracranial vertebral and carotid arteries. Sinuses: No layering fluid in the visualized portions of the paranasal sinuses. Mastoid air cells: No mastoid effusion. Orbits: No significant abnormality noted. IMPRESSION: Cerebral atrophy. No acute changes. ACT 112: Negative or not required by law. Electronically signed by Renee Roberts 03-30-2024 4:25 PM COVID-19 Results Results COVID-19 Adm Lab Results: RBC 5.33 M/uL (4.70-6.10) 03/30/24 WBC 7.23 K/ul (4.8-10.8) 03/30/24 Hgb 16.3 g/dl (14.0-18.0) 03/30/24 Hct 48.0 % (42.0-52.0) 03/30/24 Plt Count 199 K/uL (130-400) 03/30/24 Neutrophils (%) (Auto) 73.0 % 03/30/24 Lymphocytes (%) (Auto) 15.5 % 03/30/24 Monocytes # (Auto) 0.70 K/uL (0.11-0.59) H 03/30/24 Eosinophils # (Auto) 0.07 K/uL (0.00-0.50) 03/30/24 Immature Granulocyte % (Auto) 0.4 % 03/30/24 Neutrophils # (Auto) 5.28 K/uL (1.40-6.50) 03/30/24 Lymphocytes # (Auto) 1.12 K/uL (1.20-3.40) L 03/30/24 Monocytes # (Auto) 0.70 K/uL (0.11-0.59) H 03/30/24 Eosinophils # (Auto) 0.07 K/uL (0.00-0.50) 03/30/24 Basophils # (Auto) 0.03 K/uL (0.00-0.20) 03/30/24 Immature Granulocyte # (Auto) 0.03 K/uL (0.01-0.20) 4 Na 138 mmol/L (136-145) 03/30/24 K 3.8 mmol/L (3.5-5.1) 03/30/24 Cl 104 mmol/L (98-107) 03/30/24 CO2 27 mmol/L (21-32) 03/30/24 Anion Gap 7 (3-11) 03/30/24 BUN 14 mg/dl (6-23) 03/30/24 Creatinine 0.79 mg/dl (0.6-1.4) 03/30/24 BUN/Creatinine Ratio 17.7 (10-20) 03/30/24 Glucose Level 92 mg/dl (70-99(Fasting)) 03/30/24 Ca 9.3 mg/dl (8.6-10.3) 03/30/24 Total Bilirubin 0.7 mg/dl (0.2-1.0) 03/30/24 AST/SGOT 14 U/L (13-39) 03/30/24 ALT/SGPT 14 U/L (7-52) 03/30/24 Alkaline Phosphatase 58 U/L (34-104) 03/30/24 Total Protein 7.3 gm/dl (6.0-8.3) 03/30/24 Albumin 4.2 gm/dl (3.4-5.0) 03/30/24 Globulin 3.1 gm/dl (2.5-4.0) 03/30/24 Albumin/Globulin Ratio 1.4 (0.9-2) 03/30/24 CRP < 0.50 mg/dl (0-0.5) 03/30/24 Code Status & VTE Plan Code Status FULL CODE VTE Prophylaxis Plan VTE Prophylaxis will be ordered: Yes Supervising Physician Co-Signing Physician Notes Patient is a 78-year-old male with history of recurrent UTIs, urethral stricture, BPH, hypertension, hyperlipidemia and other medical problems presents on on recommendations from his ophthalmology office for change in vision associated with occipital headache and some retrobulbar pain. History is obtained from both patient and patient's over the phone. His forestry technician evaluated the patient today and noted to have swelling of the optic nerve and patient has been seeing intermittently cobweb and stars. He d escribes haziness/film like visual changes. Symptoms started about 3 days ago. Patient's family reports patient has been confused intermittently since 3 days duration. Patient denies any focal weakness, dysuria, hematuria, fever, abdominal pain, chest pain, dyspnea, change in speech. Please review HPI for complete details of presentation. I personally reviewed blood work and imaging studies. Urinalysis suggestive of possible UTI. CT head showed cerebral atrophy with no acute changes. MRI brain pending. Prior urine cultures grew Pseudomonas, staph. Physical Exam: Vitals signs as noted above General Appearance:Moderately built and nourished, no apparent distress Head: normocephalic, Atraumatic , no temporal region tenderness Eyes: normal inspection, EOMI Neck: supple, Trachea midline Respiratory/Chest: Normal breath sounds, CTA, No accessory muscle use Cardiovascular: S1, S2, No murmur Abdomen/GI:Soft, Non tender, Bowel sounds present Extremities/Musculoskeletal:normal inspection, no edema Neurologic/Psych:AAOX3, grossly no focal neurological deficits Skin: normal color, warm Strokelike symptoms Visual changes with optic nerve swelling. Rule out GCA. Versus ischemic optic neuropathy Hypertensive urgency likely situational UTI Suspected metabolic encephalopathy Started on aspirin. Check lipid panel, MRI brain, carotid Doppler, echo Empirically started on IV cefepime Follow-up cultures Neurochecks Neurology consulted Started on prednisone empirically Allow permissive hypertension until CVA ruled out PT OT, speech eval May need follow-up with ophthalmology on discharge I personally interviewed and examined at bedside. Patient's care is coordinated with Raina Garcia PA-C. I have reviewed the advanced practitioner's documentation, and I agree with plan of care. Please refer to the documentation above for details of patient's presentation and for discussion of other issues. I spent a total [id number] coordinating, documenting, and providing care for this patient excluding time spent in the performance of separately billed services.
[2024-03-30] MEDS: CEFEPIME 2000MG 2,000 MG/20 ML SYR IV STA (17:41)
[2024-03-30 18:03] LABS: C Reactive Protein < 0.50 mg/dl (0-0.5)
[2024-03-30] MEDS: predniSONE 20 MG TAB PO STA ×2 (18:11→18:16)
[2024-03-30] MEDS: ACETAMINOPHEN 1,000 MG/100 ML VIAL IV STA (18:16)
[2024-03-30] MEDS: DAPTOmycin 350 MG in SYRINGE 0 ML IV STA (18:21)
[2024-03-30] MEDS: GADOBUTROL 65ML VIAL IV ONE (18:45)
[2024-03-30] MEDS: ASPIRIN CHEW 324 MG PO STA (19:06)
--- NOTE | 2024-03-30 20:52 | Magnetic Resonance Report ---
MRI OF THE BRAIN WITHOUT AND WITH INTRAVENOUS CONTRAST INDICATION:visual disturbance for 3 days sent to er by eye doctor today TECHNIQUE: Multisequential and multiplanar images of the brain were submitted for review without and with contrast (10ml gadavist ). COMPARISON: CT scan head dated Mar 30, 2024 and Nov 26, 2023 1. No interval new findings. FINDINGS: Generalized parenchymal atrophy is appreciated. Scattered and confluent foci of increased T2/FLAIR signal abnormality are identified within the bilateral periventricular and subcortical white matter, and are most commonly associated with chronic small vessel ischemic disease. No focal parenchymal lesions are seen. No pathological enhancement is noted on the postcontrast sequences. No intracranial hemorrhage, mass effect, midline shift, extra-axial collection, or hydrocephalus is identified. Ventricles, sulci, and basal cisterns are symmetric and and configuration but widened. Diffusion-weighted sequences show no evidence of acute ischemic infarction. Midline structures including the pituitary gland, corpus callosum, pineal region, and brainstem are unremarkable. The craniovertebral junction is within normal limits. No calvarial abnormalities are identified. The paranasal sinuses and mastoid air cells are clear. Orbital structures are unremarkable. Appropriate flow voids are present in the visualized intracranial vessels. IMPRESSION: 1. No acute intracranial pathology, space occupying mass, or pathological enhancement is demonstrated. 2. Age related brain parenchymal atrophy with chronic small vessel ischemic disease. Electronically signed by Mio Grant 03-30-2024 8:51 PM
[2024-03-30] MEDS ORDERED: POLYETHYLENE (MIRALAX) 17 GM PACK PO PRN (21:09)
[2024-03-30] MEDS ORDERED: ONDANSETRON INJ 2 MG/ML 2 ML VIAL IV PRN (21:09)
[2024-03-30] MEDS ORDERED: PHARMACIST DISCHARGE MED REC CONSULT PRN (21:09)
[2024-03-30] MEDS ORDERED: hydrALAZINE HCL 20 MG/ML VIAL IV PRN (22:44)
[2024-03-30] MEDS: ENOXAPARIN INJ 40 MG/0.4 ML SYR SQ SCH (23:50)
[2024-03-30] MEDS: CEROVITE ADV FORMULA TAB PO SCH (23:52)
[2024-03-30] MEDS: MELATONIN 3 MG TAB PO PRN (23:58)
[2024-03-30] MEDS: TAMSULOSIN HCL 0.4 MG CAP PO SCH (23:58)
[2024-03-31] MEDS: CEFEPIME 2000MG 2,000 MG/20 ML SYR IV SCH (01:51)
[2024-03-31 08:24] LABS: Basophils # (auto) 0.02 K/uL (0.00-0.20); Basophils % (auto) 0.2 %; Eosinophils # (auto) 0.01 K/uL (0.00-0.50); Eosinophils % (auto) 0.1 %; Hemoglobin 15.9 g/dl (14.0-18.0); Immature Granulocytes # (auto) 0.03 K/uL (0.01-0.20); Immature Granulocytes % (auto) 0.3 %; Lymphocytes # (auto) 1.11 K/uL (1.20-3.40); Lymphocytes % (auto) 12.8 %; Mean Corpuscular Hgb Conc 34.6 g/dL (32.0-36.0); Mean Corpuscular Volume 89.7 fL (80.0-100.0); Mean Platelet Volume 9.7 fL (9.4-12.4); Monocytes # (auto) 0.63 K/uL (0.11-0.59); Monocytes % (auto) 7.2 %; Neutrophils # (auto) 6.89 K/uL (1.40-6.50); Neutrophils % (auto) 79.4 %; Platelet Count 212 K/uL (130-400); RDW Standard Deviation 42.6 fL (36.4-46.3); Red Blood Count 5.13 M/uL (4.70-6.10); White Blood Count 8.69 K/ul (4.8-10.8)
[2024-03-31 08:37] LABS: BUN Creatinine Ratio 19.8 (10-20); Calcium 9.2 mg/dl (8.6-10.3); Creatinine Clr Calc Pharmacy 87.3 ml/min
[2024-03-31] MEDS: FINASTERIDE 5 MG TAB PO SCH (08:53)
[2024-03-31] MEDS: FAMOTIDINE 20 MG TAB PO PRN (08:54)
[2024-03-31] MEDS: MONTELUKAST SODIUM 10 MG TABLET PO SCH (08:54)
[2024-03-31] MEDS: predniSONE 20 MG TAB PO SCH (08:54)
[2024-03-31] MEDS: ADVANCED PROBIOTIC 625 MG CAPSULE PO SCH (08:54)
[2024-03-31] MEDS: ASPIRIN 81 MG ECTAB PO SCH (08:54)
[2024-03-31 08:55] LABS: Estimated Average Glucose 103 mg/dl; Hemoglobin A1C 5.2 % (4.5-5.6)
[2024-03-31] MEDS: POLYETHYLENE (MIRALAX) 17 GM PACK PO SCH (08:56)
--- NOTE | 2024-03-31 09:13 | Ultrasound Report ---
EXAM: US carotid doppler BI CLINICAL HISTORY: RT EYE VISION CHANGES TECHNIQUE: An ultrasound examination of the carotid arteries was performed in real-time and duplex. One or more of the following were performed- spectral analysis, resistive index, waveform analysis, and pulsed Doppler. COMPARISON: None. FINDINGS: Doppler Profile: Vessel Right (PSV/EDV cm/sec) Left (PSV/EDV cm/sec) Common Carotid Artery (CCA) prox Common Carotid Artery (CCA) Dist 84 58 88 52 Internal Carotid Artery (ICA) - Proximal Internal Carotid Artery (ICA) - Mid Internal Carotid Artery (ICA) - Distal 40 38 71 156 121 74 Bulb 42 60 External Carotid Artery (ECA) 141 154 Vertebral Artery (VA) 57 53 Right ICA/CCA Ratio 1.2/1.5 Left ICA/CCA Ratio 3.0/2.7 Plaque Characterization: Mild intimal thickening is seen involving the bilateral carotid arteries. A few calcified plaques are seen in the bilateral carotid arteries, and carotid bulbs extending into the internal and external carotid arteries. Stenosis Evaluation: Peak systolic velocity of the left proximal internal carotid artery is increased by more than 156 representing moderate stenosis 50-69% of the narrowing. Peak systolic velocity of the left middle internal carotid artery is less than 121 representing mild stenosis, narrowing less than 50%. ICA/CCA ratio 3.0/2.7 increased and represents moderate stenosis in the left internal carotid artery. The ICA/CCA ratio on the right side is within normal limits Vertebral Arteries: Normal flow was noted in the vertebral arteries bilaterally. No evidence of vertebral artery stenosis or subclavian steal phenomenon. IMPRESSION: 1. A few calcified plaques are seen in the bilateral carotid arteries, and carotid bulbs extending into the internal and external carotid arteries. 2. Peak systolic velocity of the left proximal internal carotid artery is increased by 156 representing moderate stenosis 50-69% of the narrowing. 3. Peak systolic velocity of the left middle internal carotid artery is less than 121 representing mild stenosis, narrowing less than 50%. 4. ICA/CCA ratio 3.0/2.7 increased and represents moderate stenosis in the left internal carotid artery. 5. No hemodynamically significant stenosis is noted. 6. Advised follow-up or if clinically warranted further evaluation with CTA can be obtained. 7. Clinical correlation with symptoms and further evaluation as indicated. Routine follow-up or additional imaging may be recommended based on clinical presentation or if significant plaque is identified. NASCET Criteria for carotid stenosis: Degree of Stenosis Measurement Criteria (Angiography) Peak Systolic Velocity (PSV) End Diastolic Velocity (EDV) PSV Ratio ICA/CCA Clinical Indications for Surgery Normal No narrowing 125 cm/s 40 cm/s 2.0 Not indicated for surgery Mild Stenosis 50% narrowing of the carotid artery 125 cm/s 40 cm/s 2.0 Generally, not indicated for surgery Moderate Stenosis 50% to 69% narrowing of the carotid artery 125 - 230 cm/s 40 - 100 cm/s 2.0 - 4.0 May be considered for surgery based on individual factors Severe Stenosis 70% to 99% narrowing of the carotid artery 230 cm/s 100 cm/s 4.0 Recommended for surgery in symptomatic patients Total Occlusion 100% blockage of the carotid artery No flow detected No flow detected Not applicable Surgery is not typically performed due to complete blockage Electronically signed by Gary Tovar 03-31-2024 09:12 AM
--- NOTE | 2024-03-31 11:40 | Neurology Consultation ---
Date of Consultation March 31, 2024 Assessment & Plan (1) Decreased vision of right eye: Mio Hartman is a 78 yo M presenting with R eye vision changes, now improving. No evidence of stroke or vascular cause on imaging evaluation. Agree with opthalmology follow-up and daily aspirin for stroke prevention. Presentation and labs not consistent with GCA. No further neurologic workup at this time. -- Opthalmology follow-up -- Agree with daily aspirin -- Please contact us with any further questions. Telehealth Consultation Telehealth Information Telehealth Information: I performed this visit using a real-time telehealth connection between my location and the patients location ([facility]). After connecting through interactive tele-video, patient was identified by name and date of and/or wristband check.Patient (or authorized healthcare manufacturers service representative) was informed that this was a telemedicine visit and it was being conducted confidentially over secure lines. My office door was closed and no one else was present in the room with me.Patient (or authorized healthcare manufacturers service representative) provided consent to proceed with the visit, expressed an understanding of privacy and security of the telemedicine visit, and gave permission to have a hospital manufacturers service representative in the room in order to assist with the visit and to conduct portions of the visit, as needed. I informed the patient (or authorized healthcare manufacturers service representative) that I reviewed their record and presented the opportunity for them to ask any questions regarding the visit today. The patient agreed to participate. History of Present Illness Reason for Consultation: Vision changes Requesting Physician: Dr. Alaniz Attending Physician: Roosevelt Alaniz MD History of Present Illness Mio Hartman is a 78 yo M presenting with visual changes for the past week. The patient reports that he had some pain in his R eye and felt like there was a veil over the medial 2/3s of the vision from the R eye only. He noticed a cobweb type patter when moving from dark to light rooms. Since then the vision changes have faded more medial and have less impact on his ability to see and read. He denies any significant headache, no jaw claudication. He has never lost vision. At the ?optometrists office they noted swelling of the optic nerve and sent the patient to [facility] for further workup. Allergies Allergy/AdvReac Type Severity Reaction Status Date / Time celecoxib [From Celebrex] AdvReac Intermediate Diarrhea Verified 11/18/23 12:20 duloxetine AdvReac Intermediate Chest Verified 11/18/23 12:20 tightness, diarrhea gabapentin AdvReac Intermediate dried out Verified 11/18/23 12:20 tear ducts omeprazole AdvReac Intermediate constipatio Verified 11/18/23 12:20 n pregabalin [From Lyrica] AdvReac Intermediate dried out Verified 11/18/23 12:20 tear ducts sulfamethoxazole AdvReac Intermediate constipatio Verified 11/18/23 12:20 [From Bactrim] n trimethoprim [From Bactrim] AdvReac Intermediate constipatio Verified 11/18/23 12:20 n doxycycline AdvReac Tongue Verified 11/18/23 12:20 Swelling/Upset Stomach/Muscle Aches goats milk Allergy Swelling Uncoded 12/29/23 02:07 of Lip/Tongue/Throat Home Medications Medication Instructions Recorded Confirmed Type finasteride 5 mg tablet (Proscar) 5 mg PO QAM 07/21/19 03/30/24 History montelukast 10 mg tablet 10 mg PO QAM 07/21/19 03/30/24 History (Singulair) tamsulosin 0.4 mg capsule 0.4 mg PO QPM 07/21/19 03/30/24 History vit C 250 mg-E 90 mg-zinc 40 1 tab PO BID 08/29/22 03/30/24 History mg-copper 1 [id number] chew tablet (PreserVision AREDS-2) acetaminophen 325 mg tablet 650 mg PO Q8H PRN Pain 11/18/23 03/30/24 History sennosides 8.6 mg tablet (Senokot) 8.6 mg PO QAM PRN Constipation 11/18/23 03/30/24 History polyethylene glycol 3350 17 gram 17 g PO DAILY 30 days #30 ea 01/01/24 03/30/24 Rx oral powder packet (Miralax) Patient History Medical History Acute UTI Altered mental status Situational anxiety "Right now with my surgeries and my 's recent surgery" Family history of macular degeneration "Taking preservision for" Constipation "Uses Senokot to ease straining/stress to prostate" Complicated UTI (urinary tract infection) "Just picked up levofloxacin today" Hx of colonic polyp "I just have one" History of urinary retention No issues at this time 2016, prior to his TURP procedure History of herniated intervertebral disc no sx, therapy only Hx of bronchitis hx ~2009, given his inhaler at this time, has not used since he has bronchitis Hx of ulcerative colitis "Just an episode in " BPH (benign prostatic hyperplasia) Osteoarthritis History of allergic rhinitis Surgical History Hx of colonoscopy 2018 Hx of eye surgery [facility] Gurrola - left eye, for "lazy" eye History of bronchoscopy back in the ; for a foreign body in his lungs S/P TURP 11/2015, maximilian Dietz H/O knee surgery 2000 left, tendon reattachment surgery History of dilation of urethra (~2000) Family History Father Cerebral infarction due to occlusion of cerebellar artery Social History Smoking Status: Never smoker Second Hand Exposure: No; Do You Dip or Chew Tobacco: No; Hx Alcohol Use: No Hx Substance Use: No Preferred Language: Azerbaijani Communication Ability: Effective Communication Ability Comment: Difficulty finding words when upset Car Pilot Required: No Beliefs That Will Affect Care: None marital status: Current Living Situation: Spouse current occupational status: retired Feels Safe at Home: Yes Assistive Devices: Cane and Glasses Review of Systems +R eye vision changes Physical Exam Awake and alert, oriented x3, pressured speech, face symmetric, EOMI, pupils equal, antigravity strength throughout. Results & Data Vital Signs (Past 12 Hours) Vital Signs Temp Pulse Pulse Resp BP Pulse Ox O2 Del Method 03/31/24 09:01 Room Air 03/31/24 08:05 36.4 C L 82 20 147/86 H 96 Room Air 03/31/24 07:31 71 03/31/24 03:00 36.3 C L 82 18 156/88 H 96 Room Air 03/31/24 02:00 Room Air 03/31/24 02:00 36.5 C 68 18 197/94 H 98 Room Air Laboratory Results Abnormal lab results 03/30/24 03/31/24 Range/Units 15:47 08:01 Neut # (Auto) 6.89 H (1.40-6.50) K/uL Lymph # (Auto) 1.12 L 1.11 L (1.20-3.40) K/uL Lamb # (Auto) 0.70 H 0.63 H (0.11-0.59) K/uL Glucose 102 H (70-99(Fasting)) mg/dl Cholesterol 210 H (0-200) mg/dl Ur Leukocyte Esterase 3+ H (Negative) Urine WBC (Auto) >50 H (0-5) /hpf Urine Bacteria (Auto) 3+ H (None Seen) Diagnostic Findings MRI brain - Unremarkable CUS - Mod L ICA stenosis
--- NOTE | 2024-03-31 15:33 | Hospitalist Progress Note ---
Date of Service March 31, 2024 Assessment & Plan (1) Visual changes: (2) Optic nerve swelling: (3) Hypertensive urgency: (4) Acute UTI: Plan This is a 78 year old male who has a significant PMH of BPH, lumbar disc herniation with radiculopathy, peripheral neuropathy, UTIs who presented to the ED due to referral from opthal due to swelling of optic nerve in setting of vision changes and GEORGE. Acute visual changes to R eye Optic nerve swelling - Hypertensive urgency Pt seen in Opthalology clinic on day of admission due to R visual changes, "something cover eye, seeing cobbwebs"; symptoms gradually came on in one week No temporal tenderness, ESR/CRP negative - Opthal initially a concerned for possible GCA vs Ischemic optic neuropathy MRI brainno stroke ESR within normal limits Carotid venous duplexno hemodynamically significant stenosis noted Neurology consulted; recommended aspirin 81 mg once a day Called and spoke with his nutritional services cook; recommend that he sees ophthalmology as outpatient. They have already scheduled an appointment for him in 1 week. Started on amlodipine for high blood pressure. Acute UTI hx of recurrent UTI in the past Pt asymptomatic, hx of pseudomonas continue empiric cefepime for now with probiotic Awaiting urine culture results. DVT ppx: lovenox FULL CODE PCP: Joe wu Dispo: awaiting urine culture results Please note the above document was generated using voice recognition software. It may contain grammatical, syntax or spelling errors. Any formal questions or concerns about the content, text or information contained within the body of this dictation should be directly addressed to the provider for clarification Admission and Anticipated Discharge Date Admission Date: March 30, 2024 Subjective Patient seen and examined at bedside. He is sitting up on a chair eating breakfast; not in distress. Reports that his vision on right eye slightly better No significant events overnight Review of Systems Review of Systems: All systems reviewed & are unremarkable except as noted in Subjective Physical Exam Physical Exam: Constitutional: Alert oriented x 3; not in distress. n Respiratory: normal respiratory effort, lungs clear to auscultation, no wheeze, rales, rhonchi. Normal insp/exp effort, no accessory muscle use Cardiovascular: RRR, no murmur, no edema Vessels: no JVD or carotid bruit Chest: normal inspection of chest Abdomen: normal bowel sounds, soft, nontender, no hepatosplenomegaly Musculoskeletal: no cyanosis or clubbing, extremities motor strength 5/5 Skin: no rashes, warm and dry normal turgor Neurologic: PERRL, EOMI, accommodation nl, no face palsy, no dysarthria CN's II- XI intact bilaterally and moves all extremities Psychiatric: A+Ox3, euthymic affect Results & Data Results & Data Vital Signs (Past 12 Hours) Vital Signs Temp Pulse Pulse Resp BP Pulse Ox O2 Del Method 03/31/24 11:32 36.3 C L 69 20 146/84 H 96 Room Air 03/31/24 09:01 Room Air 03/31/24 08:05 36.4 C L 82 20 147/86 H 96 Room Air 03/31/24 07:31 71
[2024-03-31] MEDS: NIFEdipine EXTENDED REL 30 MG TABCR PO SCH (15:57)
[2024-03-31] MEDS: amLODIPine BESYLATE 5 MG TAB PO SCH (17:00)
[2024-04-01] MEDS: DEXTROSE 50% 50 ML SYRINGE IV ONE (12:48)
[2024-04-01] MEDS: OPTIRAY 320 125ml IV ONE (13:05)
--- NOTE | 2024-04-01 13:19 | CT Scan Report ---
CT OF THE HEAD WITHOUT CONTRAST CLINICAL HISTORY: neuro deficit, acute stroke suspected COMPARISON STUDY: Head CT and MRI of the brain March 30, 2024. TECHNIQUE: Helical axial images of the head were obtained without IV contrast. Automated exposure con trol was utilized for the study. A dose lowering technique was utilized adhering to the principles o f ALARA. FINDINGS: No acute intracranial hemorrhage, midline shift or mass effect is present. The ventricular system is stable. White matter hypodensities are unchanged and favor small vessel disease. The basal cisterns are patent. No extra-axial collections are present. There are no findings to suggest acute d ural sinus thrombosis or acute territorial infarct. No significant calvarial abnormalities are presen t. Visualized portions of the sinuses and mastoid air cells are clear. IMPRESSION: No acute intracranial findings. No change in appearance of the brain. ACT 112: Negative or not required by law. Electronically signed by: Ulysses Diaz M.D. 04/01/2024 1:13 PM
[2024-04-01 13:23] LABS: Basophils # (auto) 0.04 K/uL (0.00-0.20); Basophils % (auto) 0.6 %; Eosinophils # (auto) 0.06 K/uL (0.00-0.50); Eosinophils % (auto) 0.8 %; Hematocrit (blood only) 46.3 % (42.0-52.0); Hemoglobin 15.6 g/dl (14.0-18.0); Immature Granulocytes # (auto) 0.04 K/uL (0.01-0.20); Immature Granulocytes % (auto) 0.6 %; Lymphocytes # (auto) 1.24 K/uL (1.20-3.40); Lymphocytes % (auto) 17.6 %; Mean Corpuscular Hemoglobin 30.6 pg (25.0-34.0); Mean Corpuscular Hgb Conc 33.7 g/dL (32.0-36.0); Mean Platelet Volume 9.9 fL (9.4-12.4); Monocytes # (auto) 0.69 K/uL (0.11-0.59); Monocytes % (auto) 9.8 %; Neutrophils # (auto) 4.99 K/uL (1.40-6.50); Neutrophils % (auto) 70.6 %; Platelet Count 186 K/uL (130-400); RDW Coefficient of Variation 12.9 % (11.5-14.5); RDW Standard Deviation 43.3 fL (36.4-46.3); Red Blood Count 5.09 M/uL (4.70-6.10); White Blood Count 7.06 K/ul (4.8-10.8)
--- NOTE | 2024-04-01 13:30 | CT Scan Report ---
CTA ANGIOGRAPHY OF THE HEAD CLINICAL HISTORY: neuro deficit, acute stroke suspected COMPARISON STUDY: MRI of the brain and head CT March 30, 2024. TECHNIQUE: Helical axial images of the head were obtained following uneventful intravenous administr ation of 119 cc of Optiray. Sagittal and coronal reconstructions were viewed as well as maximal inten sity projections on an independent 3-D workstation. Automated exposure control was utilized for the study. A dose lowering technique was utilized adhering to the principles of ALARA. FINDINGS: No acute intracranial hemorrhage, midline shift or mass effect is present. Ventricular syst em is stable. Basal cisterns are patent. There are no extra axial collections. White matter hypodensi ty suggests small vessel disease. There is moderate calcified plaque within the bilateral cavernous c arotids without significant stenosis. The bilateral M1, M2, A1 and A2 segments are patent. No vessel occlusion is identified. There is persistence of the right posterior cerebral artery. No intrac ranial aneurysm. IMPRESSION: No large vessel occlusion. No intracranial aneurysm. ACT 112: Negative or not required by law. Electronically signed by: Ulysses Diaz M.D. 04/01/2024 1:23 PM
--- NOTE | 2024-04-01 13:31 | CT Scan Report ---
CT angio neck with con CLINICAL HISTORY: 78 years-old Male with neuro deficit, acute stroke suspected. Acute stroke like symptoms COMPARISON STUDY: CT scan of same day TECHNIQUE: Following the IV administration of 119 of Optiray, CT angiogram of the neck was performed from the aortic arch to the skull base. Images are reviewed in the axial, sagittal, and coronal plane s. 3-D MIPS images are created and assessed. IV contrast was administered without complication. All m easurements were calculated based on NASCET criteria. A dose lowering technique was utilized adherin g to the principles of ALARA. CT DOSE: 1313.14 mGy.cm FINDINGS: Motion degraded exam. Mild atherosclerosis of the thoracic aortic arch. Patency of the innominate and imaged subclavian arteries. The common carotid arteries appear patent. Severe atherosclerosis of the carotid bulbs. There is loss of 50% stenosis of the proximal right ICA. There is approximate 90% chet nosis of the proximal left ICA on image 303. Dominant left vertebral artery is patent. The developmen tally diminutive right vertebral artery is patent. No aneurysm, dissection, high-grade stenosis or ar terial occlusion. CTA of the head dictated separately. There is mild stenosis of the posterior cerebr al arteries. The lung apices are clear. No dominant thyroid nodule. Unremarkable soft tissues. No acute fracture. Degenerative changes of the cervical spine without acute fracture. Moderate left basilar effusion. IMPRESSION: 1. Motion degraded exam. 2. 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 3. Atherosclerosis of the right carotid bulb without high-grade stenosis. 4. No dissection, aneurysm or arterial occlusion. ACT 112: Negative or not required by law. The above report was generated using voice recognition software. It may contain grammatical, syntax o r spelling errors. Electronically signed by: Orion Rios M.D. 04/01/2024 1:24 PM
[2024-04-01 13:34] LABS: Partial Thromboplastin Time 26 Seconds (21-31)
[2024-04-01 13:49] LABS: Albumin Globulin Ratio 1.2 (0.9-2); Albumin Level 3.5 gm/dl (3.4-5.0); BUN Creatinine Ratio 25.8 (10-20); Bilirubin,Total 0.7 mg/dl (0.2-1.0); Calcium 8.8 mg/dl (8.6-10.3); Creatinine Clr Calc Pharmacy 84.4 ml/min; Total Protein 6.5 gm/dl (6.0-8.3)
--- NOTE | 2024-04-01 15:00 | Hospitalist Progress Note ---
Date of Service April 01, 2024 Assessment & Plan (1) Visual changes: (2) Optic nerve swelling: (3) Hypertensive urgency: (4) Acute UTI: Plan This is a 78 year old male who has a significant PMH of BPH, lumbar disc herniation with radiculopathy, peripheral neuropathy, UTIs who presented to the ED due to referral from opthal due to swelling of optic nerve in setting of vision changes and GEORGE. Ischemic Optic neuropathy CVA ruled out Patient seen in Ophthalmology clinic on day of admission due to R visual changes, "something cover eye, seeing cobbwebs"; symptoms gradually came on in one week No temporal tenderness, ESR/CRP negative - Ophthalmology initially a concerned for possible GCA vs Ischemic optic neuropathy MRI brainno stroke ESR within normal limits, GCA ruled out. Carotid venous duplexno hemodynamically significant stenosis noted Neurology consulted; recommended aspirin 81 mg once a day Called and spoke with his scuba diving teacher; recommend that he sees ophthalmology as outpatient. They have already scheduled an appointment for him in 1 week. In the afternoon of 04/01/2024, patient reported that he has sudden decrease in his right eye vision, also reported some word finding difficulty. Patient was immediately evaluated at bedside. Only light perception was seen on right eye. No other focal neurological abnormality was seen. EKG was obtained at bedside and personally reviewed; normal sinus rhythm; nonspecific ST and T wave changes. POC blood glucose was obtained; found to have blood glucose of 87 Mg per DL; 50% dextrose was verbally ordered. Stroke alert was called due to word finding difficulty and decreasing right vision; CT head, CTA head and neck was done. No acute finding was seen in the CT head. CTAneck showed 90% stenosis of left ICA. Discussion was done with [place] neurolog[facility]; they recommend MRI orbit. Also recommend ophthalmology evaluation. Updated Dr. Mendosa from ophthalmology about the consult. 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 He does not feel that patient needs to be seen by him while inpatient. He recommended outpatient follow-up. Added Lipitor 40 mg once a day; patient will need vascular surgery follow-up for evaluation of left ICA stenosis. Acute UTI hx of recurrent UTI in the past Urine culture growing Enterococcus faecium Patient denies any symptoms at this time Continue on amoxicillin for now. DVT ppx: lovenox FULL CODE PCP: Joe wu Dispo: awaiting urine culture results; Monitor overnight; possible DC in a.m. Patient's updated over the phone. Time critical spent evaluating patient, direct bedside care, chart review, placing orders, interpretation of diagnostic studies, discussion with consultants, patient, and family members, as well as other required patient management activities is 45 Please note the above document was generated using voice recognition software. It may contain grammatical, syntax or spelling errors. Any formal questions or concerns about the content, text or information contained within the body of this dictation should be directly addressed to the provider for clarification Admission and Anticipated Discharge Date Admission Date: March 30, 2024 Subjective Patient was seen twice today. In the morning, patient was sitting up on a chair; not in distress. He reported that he is feeling better; right eye symptoms felt slightly improved. No significant events overnight In the afternoon, patient reported that he has sudden decrease in his right eye vision, also reported some word finding difficulty. Patient was immediately evaluated at bedside. Only light perception was seen on right eye. No other focal neurological abnormality was seen. EKG was obtained at bedside and personally reviewed; normal sinus rhythm; nonspecific ST and T wave changes. POC blood glucose was obtained; found to have blood glucose of 87 Mg per DL; 50% dextrose was verbally ordered. Stroke alert was called due to word finding difficulty and decreasing right vision; CT head, CTA head and neck was done. No acute finding was seen in the CT head. CTAneck showed 90% stenosis of left ICA. Discussion was done with [place] [facility]; they recommend MRI orbit. Also recommend ophthalmology evaluation. Updated Dr. Mendosa from ophthalmology about the consult. 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 He does not feel that patient needs to be seen by him while inpatient. He recommended outpatient follow-up. Review of Systems Review of Systems: All systems reviewed & are unremarkable except as noted in Subjective Physical Exam Physical Exam: Constitutional: Alert oriented x 3; not in distress. n Respiratory: normal respiratory effort, lungs clear to auscultation, no wheeze, rales, rhonchi. Normal insp/exp effort, no accessory muscle use Cardiovascular: RRR, no murmur, no edema Vessels: no JVD or carotid bruit Chest: normal inspection of chest Abdomen: normal bowel sounds, soft, nontender, no hepatosplenomegaly Musculoskeletal: no cyanosis or clubbing, extremities motor strength 5/5 Skin: no rashes, warm and dry normal turgor Neurologic: PERRL, EOMI, accommodation nl, no face palsy, no dysarthria CN's II- XI intact bilaterally and moves all extremities. Only light perception seen in left eye Psychiatric: A+Ox3, euthymic affect Results & Data Results & Data Vital Signs (Past 12 Hours) Vital Signs Temp Pulse Pulse Resp BP BP Pulse Ox 04/01/24 13:49 36.4 C L 62 18 169/87 H 100 04/01/24 12:49 68 18 143/83 H 100 04/01/24 11:49 36.5 C 68 18 143/83 H 99 04/01/24 09:41 04/01/24 08:05 04/01/24 07:21 36.4 C L 57 L 16 174/76 H 98 04/01/24 07:20 66 04/01/24 03:40 36.9 C 71 16 136/70 96 O2 Del Method O2 Del Method 04/01/24 13:49 Room Air 04/01/24 12:49 Room Air 04/01/24 11:49 Room Air 04/01/24 09:41 Room Air 04/01/24 08:05 Room Air 04/01/24 07:21 Room Air 04/01/24 07:20 04/01/24 03:40 Room Air
--- NOTE | 2024-04-01 15:09 | Electrocardiogram Report ---
Test Reason : Blood Pressure : */* mmHG Vent. Rate : 62 BPM Atrial Rate : 62 BPM P-R Int : 158 ms QRS Dur : 88 ms QT Int : 424 ms P-R-T Axes : 106 117 132 degrees QTcB Int : 430 ms Poor data quality, interpretation may be adversely affected Suspect arm lead reversal, interpretation assumes no reversal Normal sinus rhythm Possible Right ventricular hypertrophy Lateral infarct , age undetermined Abnormal ECG When compared with ECG of 30-Mar-2024 15:02, Current undetermined rhythm precludes rhythm comparison, needs review QRS axis Shifted right Lateral infarct is now Present Confirmed by Matteo Villanueva ([id number]) on 04/01/2024 3:08:48 PM Referred By: Robin Lancaster Confirmed By: Matteo Villanueva
[2024-04-01] MEDS: ATORVASTATIN 40 MG TAB PO SCH (15:24)
[2024-04-01] MEDS: AMOXICILLIN 875 MG TAB PO SCH (22:30)
[2024-04-01] MEDS: ACETAMINOPHEN 325 MG TAB PO PRN (23:40)
--- NOTE | 2024-04-02 00:15 | Magnetic Resonance Report ---
Exam(s): MRI ORBITS IV Amt: 10ml gadavist EXAM: MR Orbits With Intravenous Contrast CLINICAL HISTORY: Reason for exam: right eye vision. TECHNIQUE: Multiplanar magnetic resonance images of the orbits with intravenous contrast. CONTRAST: Patient received 10ml gadavist of IV contrast COMPARISON: No relevant prior studies available. FINDINGS: Orbits: Unremarkable. Sinuses: Unremarkable. No air-fluid levels. Bones/joints: Unremarkable. No acute fracture. Soft tissues: Unremarkable. IMPRESSION: Negative MRI of the orbits. Electronically signed by: Jyothi Lorenzo MD 04/02/24 00:14 AM
[2024-04-02 07:25] VITALS: RESP 20
[2024-04-02 08:14] LABS: Basophils # (auto) 0.04 K/uL (0.00-0.20); Basophils % (auto) 0.6 %; Eosinophils # (auto) 0.13 K/uL (0.00-0.50); Hemoglobin 16.4 g/dl (14.0-18.0); Immature Granulocytes # (auto) 0.06 K/uL (0.01-0.20); Immature Granulocytes % (auto) 0.9 %; Lymphocytes # (auto) 1.48 K/uL (1.20-3.40); Lymphocytes % (auto) 22.7 %; Mean Corpuscular Hemoglobin 29.8 pg (25.0-34.0); Mean Corpuscular Hgb Conc 33.5 g/dL (32.0-36.0); Mean Corpuscular Volume 89.1 fL (80.0-100.0); Mean Platelet Volume 9.8 fL (9.4-12.4); Monocytes # (auto) 0.82 K/uL (0.11-0.59); Monocytes % (auto) 12.6 %; Neutrophils % (auto) 61.2 %; Platelet Count 195 K/uL (130-400); RDW Coefficient of Variation 12.9 % (11.5-14.5); RDW Standard Deviation 42.2 fL (36.4-46.3); White Blood Count 6.53 K/ul (4.8-10.8)
[2024-04-02 08:16] LABS: BUN Creatinine Ratio 23.4 (10-20); Calcium 9.1 mg/dl (8.6-10.3); Creatinine Clr Calc Pharmacy 97.5 ml/min; Potassium 4.1 mmol/L (3.5-5.1)
[2024-04-02] MEDS: LINEZOLID 600 MG TAB PO SCH (09:18)
--- NOTE | 2024-04-02 09:49 | Hospitalist Progress Note ---
Date of Service April 02, 2024 Assessment & Plan (1) Visual changes: (2) Optic nerve swelling: (3) Hypertensive urgency: (4) Acute UTI: Plan This is a 78 year old male who has a significant PMH of BPH, lumbar disc herniation with radiculopathy, peripheral neuropathy, UTIs who presented to the ED due to referral from opthal due to swelling of optic nerve in setting of vision changes and GEORGE. Ischemic Optic neuropathy CVA ruled out Patient seen in Ophthalmology clinic on day of admission due to R visual changes, "something cover eye, seeing cobbwebs"; symptoms gradually came on in one week No temporal tenderness, ESR/CRP negative - Ophthalmology initially a concerned for possible GCA vs Ischemic optic neuropathy MRI brainno stroke ESR within normal limits, GCA ruled out. Carotid venous duplexno hemodynamically significant stenosis noted Neurology consulted; recommended aspirin 81 mg once a day Called and spoke with his demand planner; recommend that he sees ophthalmology as outpatient. They have already scheduled an appointment for him in 1 week. In the afternoon of 04/01/2024, patient reported that he has sudden decrease in his right eye vision, also reported some word finding difficulty. Patient was immediately evaluated at bedside. Only light perception was seen on right eye. No other focal neurological abnormality was seen. EKG was obtained at bedside and personally reviewed; normal sinus rhythm; nonspecific ST and T wave changes. POC blood glucose was obtained; found to have blood glucose of 87 Mg per DL; 50% dextrose was ordered. Stroke alert was called due to word finding difficulty and decreasing right vision; CT head, CTA head and neck was done. No acute finding was seen in the CT head. CTAneck showed 90% stenosis of left ICA. Discussion was done with [facility]; they recommend MRI orbit which was negative for any significant findings. Also recommend ophthalmology evaluation. Updated Dr. Mendosa from ophthalmology about the consult. 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 He does not feel that patient needs to be seen by him while inpatient. He recommended outpatient follow-up. Added Lipitor 40 mg once a day; patient will need vascular surgery follow-up for evaluation of left ICA stenosis. Patient's blood pressure during the hospitalization was on the higher side. I discussed starting antihypertensive. However he wants to monitor home blood pressure initially and follow-up with his primary care doctor. Acute UTI hx of recurrent UTI in the past Culture grew VRE Patient prescribed linezolid to be taken for 5 days. Instruction regarding dietary instructions given DVT ppx: lovenox FULL CODE PCP: Joe wu Dispo: awaiting urine culture results; Monitor overnight; possible DC in a.m. Patient's updated over the phone. Time critical spent evaluating patient, direct bedside care, chart review, placing orders, interpretation of diagnostic studies, discussion with consultants, patient, and family members, as well as other required patient management activities is 45 Please note the above document was generated using voice recognition software. It may contain grammatical, syntax or spelling errors. Any formal questions or concerns about the content, text or information contained within the body of this dictation should be directly addressed to the provider for clarification Admission and Anticipated Discharge Date Admission Date: March 30, 2024 Subjective Patient seen and examined at bedside. Comfortable; not in distress. Denies fever, chills, chest pain, shortness of breath, abdominal pain or urinary symptoms. No significant overnight events Review of Systems Review of Systems: All systems reviewed & are unremarkable except as noted in Subjective Physical Exam Physical Exam: Constitutional: Alert oriented x 3; not in distress. n Respiratory: normal respiratory effort, lungs clear to auscultation, no wheeze, rales, rhonchi. Normal insp/exp effort, no accessory muscle use Cardiovascular: RRR, no murmur, no edema Vessels: no JVD or carotid bruit Chest: normal inspection of chest Abdomen: normal bowel sounds, soft, nontender, no hepatosplenomegaly Musculoskeletal: no cyanosis or clubbing, extremities motor strength 5/5 Skin: no rashes, warm and dry normal turgor Neurologic: PERRL, EOMI, accommodation nl, no face palsy, no dysarthria CN's II- XI intact bilaterally and moves all extremities. Only light perception seen in right eye Psychiatric: A+Ox3, euthymic affect Results & Data Results & Data Vital Signs (Past 12 Hours) Vital Signs Temp Pulse Pulse Resp BP BP Pulse Ox 04/02/24 07:24 35.9 C L 70 20 166/88 H 98 04/02/24 07:17 59 L 04/02/24 02:58 36.5 C 71 18 153/86 H 97 04/02/24 01:30 61 04/01/24 23:00 36.3 C L 65 18 178/96 H 99 O2 Del Method 04/02/24 07:24 Room Air 04/02/24 07:17 04/02/24 02:58 Room Air 04/02/24 01:30 04/01/24 23:00 Room Air
--- OUTSIDE RECORDS SUMMARY | 2024-04-02 11:48 | External Medical Summary | Continuity of Care Document ---
Author Name Unknown Organization [id number] Address [address] [place] [id number] Care Team Providers Care Receiver Setter Name Role Phone John Calderon Primary Care Physician [phone] [id number] Date(s): 03/01/24 - 03/01/24 [facility] [address] [id number] [facility] Medicine [address] [address] Encounter Diagnosis Hallux rigidus, right foot(Discharge Diagnosis) - 03/01/24 Right foot pain(Discharge Diagnosis) - 03/01/24 Discharge Disposition: Home or Self Care Attending Physician: LAMBERT Ruvalcaba Christina L Referring Physician: DO Calderon Trevor S Allergies, Adverse Reactions, Alerts Substance Criticality Severity Reaction Reaction Severity Status gabapentin dries tear ducts Ac tive CeleBREX diarrhea Active Allergy Not found in Search 1 Anaphylaxis Active pregabalin dries tear ducts Ac tive 1goat milk Assessment and Plan Extracted from: Title:Follow Up Visit Author:LAMBERT Ruvalcaba, González Acuña Date:03/01/24 1.Hallux rigidus, right foot I reviewed his paperwork from both his urology team as well as his vascular medicine team and at this point he seems to be goodto be rescheduled for his surgery. He is continuing to have pain and discomfortso encouraged him to use ice over the area for any of thearthritic pain and also to consider using topical Voltaren geltwice per day in the morning and at night which was prescribed today. Patient will follow-up with me for preoperative evaluation ifhe schedules his surgery. I spent 7 minute planning including prepping note and chart review. I spent 13 minute [id number] interaction with patient addressing issuesdiscussed in visit today. I spent 9 minute time in postop visitplanning including note finishing in depart process. Total time spent on patient visit 29 minutes. 2.Right foot pain Medications finasteride 5 mg oral tablet Start: 09/23/12 12:13:00 PM EDT, 1 tab, PO, Daily Start Date: 09/23/12 Status: Ordered Flomax 0.4 mg oral capsule Start: 09/23/12 12:12:00 PM EDT, 1 cap, PO, Daily Start Date: 09/23/12 Status: Ordered ICaps AREDS 2 oral capsule Start: 08/04/23 1:25:00 PM EDT Start Date: 08/04/23 Status: Ordered Brutus 5 mg-325 mg oral tablet Start: 09/14/23 12:05:00 PM EDT, 1 tab, PO, q6h, Disp# 10 tab, Refills: 0, PRN: as needed for pain, [id number] Start Date: 09/14/23 Stop Date: 09/21/23 Status: Ordered Refresh Optive Advanced ophthalmic solution Start: 03/30/23 3:34:00 PM EST Start Date: 03/30/23 Status: Ordered Singulair 10 mg oral tablet Start: 09/23/12 12:13:00 PM EDT, 1 tab, PO, qPM Start Date: 09/23/12 Status: Ordered Ventolin Start: 09/23/12 12:14:00 PM EDT, 2 puffs, inhaled, bid, dose unknown. Start Date: 09/23/12 Status: Ordered Voltaren 1% topical gel Start: 03/01/24 11:19:00 AM EST, 1 appl, topical, qid, Disp# 100 g, 4g to affected area 4 times a day, PRN: Pain, Pharmacy: [facility] #[id number] Start Date: 03/01/24 Status: Ordered Mental Status 03/01/24 Barriers to Learning one year None evide nt Mandatory Health Literacy Documentation Yes Health Literacy Communication Barriers N ever Primary Language Kyrgyz Problem List Condition Confirmation Course Effective Dates [...] Dates Health Status Cl inical Service Informant Hallux rigidus, right foot Discharge Diagnosis 03/01/24 Non-Specified Right foot pain Discharge Diagnosis 03/01/24 Non-Specified Procedures Procedure Date Related Diagnosis Body Site Status TURP - Transurethral resection of prostate 2016 Completed Knee surgery 2000 Completed Surgery of the urethra Co mpleted Vital Signs Most recent to oldest [Reference Range]: 1 Height 188.5 cm (03/01/24 10:56 AM) Patient Weight 97.2 kg (03/01/24 10:56 AM) Body Mass Index 27.36 kg/m2 (03/01/24 10:56 AM) Social History Social History Type Response Smoking Status Never smoked cigaret makeda Sex Male Sex Representation Male (finding) Ortho Outpt Note * LAMBERT Ruvalcaba, Shira Acuña: PERFORM Event Display: Ortho Outpt Note Authored Date: Chief Complaint right foot pain Primary Care Provider DO Calderon Trevor S Subjective have his surgery however he is continue to have issues with bladder infections and we have not thus been able to schedule the surgery he is following up today.Patientis a very pleasant 78-year-old male presenting today for evaluation of his right foothe has a history of hallux rigidus tenderness secondary to a large dorsal exostosiswe have tried many times to have patient -Notably patient was seen by [facility] vascular medicine and they note that they feelhis circulatoryissues are minimal and he has enough circulation to heal in a great toe procedure. -Patient has been off antibiotics with regards to his repeated urinary tract infectionshe notes that he is currently stable and not on antibioticshe is continuing to have pain associated with theright great toe secondary to his hallux rigidus. Review of Systems Extremity numbness Objective Vitals & Measurements WT:97.2kg WT:97.200kg(Dosing) Physical Exam Problem focused right foot: Dorsalis [...] of the right foot arterial Dopplers/LEONARD ordered previously and reviewed patient was seen by vascular medicine and cleared for procedure. Gross sensation intact all digitsof the right [...] right foot:Taken at March 30, 2023 visit Assessment/Plan 1.Hallux rigidus, right foot I reviewed his paperwork from both his urology team as well as his vascular medicine team and at this point he seems to be goodto be rescheduled for his surgery. He is continuing to have pain and discomfortso encouraged him to use ice over the area for any of thearthritic pain and also toconsider using topical Voltaren geltwice per day in the morning and at night which was prescribedtoday. Patient will follow-up with me for preoperative evaluation ifhe schedules his surgery. I spent 7 minute planning including prepping note and chart review. I spent 13 [id number] interaction with patient addressing issuesdiscussed in visit today. I spent 9 minute time in postop visitplanning including note finishing in depart process. Total time spent on patient visit 29 minutes. 2.Right foot pain Electronic Signature on File Electronically Reviewed/Signed by: Shira Ruvalcaba DPM Author Signature Dt/Tm:03/01/2024 11:22 AM Division of Sports Medicine CLR Patient Care team information Care Team Personnel Name: DO Calderon Trevor S Position: Referring DIRECT Member Role: Primary Care Provider Address: [facility] [address] [place] [address] [place] Care Team Related Persons Name: SHAKIRA HERNANDEZ
[2024-04-02 12:01] VITALS: BP 153/81; PULSE 77; TEMP 96.1; O2SAT 100
--- NOTE | 2024-04-02 13:45 | Discharge Summary ---
Date of Service April 02, 2024 Admission HPI Per Admitting Provider This is a 78 year old male who has a significant PMH of BPH, lumbar disc herniation with radiculopathy, peripheral neuropathy, UTIs who presented to the ED due to referral from opthal due to swelling of optic nerve in setting of vision changes and GEORGE. Pt presents to hospital due to a referral from relief docking master. He was at his eye Dr today due to inability to see out of his R eye. He was seen at [facility] today. He was seeing cobwebs out of his right eye that started a few days ago. His sx would come and go. Currently he feels like there is a covering over his R eye. When he closes his R eye he is seeing stars in his L eye. He is complaining of a headache that is located in the posterior aspect of his head. He denies any temporal pain. He denies any weakness in his arms/legs or numbness. He denies any facial droop, dysphasia or trouble swallowing. He reports hx of 5-6 UTIs. "Why do I keep getting UTIS?" He is following with a urologist in [place]. He denies any dysuria, increased urg/freq with urination and hematuria. He denies any fever but complains of fever. He denies any chest pain or SOB. His reports increased confusion over the past 3-4 days which tends to be the first sign he is getting a UTI. He has chronic foot pain due to arthritis. Overall his appetite has been poor. Hx obtain from pt and over the phone. According to ER Physician who spoke to the relief docking master pt had a dilated eye exam today. There was concern for Right optic nerve swelling and concern for possible Stroke vs GCA which is why they referred him to the ED. Pt was seen in clinic 1 week ago and vision in R eye was 20/25 and today only had perception to light. Admission Exam Per Admitting Provider General Appearance:Moderately built and nourished, no apparent distress Head: normocephalic, Atraumatic , no temporal region tenderness Eyes: normal inspection, EOMI Neck: supple, Trachea midline Respiratory/Chest: Normal breath sounds, CTA, No accessory muscle use Cardiovascular: S1, S2, No murmur Abdomen/GI:Soft, Non tender, Bowel sounds present Extremities/Musculoskeletal:normal inspection, no edema Neurologic/Psych:AAOX3, grossly no focal neurological deficits Skin: normal color, warm Principal Diagnosis Ischemic Optic neuropathy CVA ruled out Discharge Exam Constitutional: Alert oriented x 3; not in distress. n Respiratory: normal respiratory effort, lungs clear to auscultation, no wheeze, rales, rhonchi. Normal insp/exp effort, no accessory muscle use Cardiovascular: RRR, no murmur, no edema Vessels: no JVD or carotid bruit Chest: normal inspection of chest Abdomen: normal bowel sounds, soft, nontender, no hepatosplenomegaly Musculoskeletal: no cyanosis or clubbing, extremities motor strength 5/5 Skin: no rashes, warm and dry normal turgor Neurologic: PERRL, EOMI, accommodation nl, no face palsy, no dysarthria CN's II- XI intact bilaterally and moves all extremities. Only light perception seen in right eye Psychiatric: A+Ox3, euthymic affect Discharge Data Allergies Allergy/AdvReac Type Severity Reaction Status Date / Time celecoxib [From Celebrex] AdvReac Intermediate Diarrhea Verified 11/18/23 12:20 duloxetine AdvReac Intermediate Chest Verified 11/18/23 12:20 tightness, diarrhea gabapentin AdvReac Intermediate dried out Verified 11/18/23 12:20 tear ducts omeprazole AdvReac Intermediate constipatio Verified 11/18/23 12:20 n pregabalin [From Lyrica] AdvReac Intermediate dried out Verified 11/18/23 12:20 tear ducts sulfamethoxazole AdvReac Intermediate constipatio Verified 11/18/23 12:20 [From Bactrim] n trimethoprim [From Bactrim] AdvReac Intermediate constipatio Verified 11/18/23 12:20 n doxycycline AdvReac Tongue Verified 11/18/23 12:20 Swelling/Upset Stomach/Muscle Aches goats milk Allergy Swelling Uncoded 12/29/23 02:07 of Lip/Tongue/Throat Consultations 03/30/24 17:28 ED Decision to Admit Stat 03/30/24 21:09 Consult Neurology Routine 03/31/24 11:36 Consult Ophthalmology Routine Ordered Studies 03/30/24 15:53 CT head/brain wo con Stat 03/30/24 17:52 MR brain wo/w con Routine 03/30/24 21:09 US carotid doppler BI Routine 04/01/24 12:52 CT angio head w con Stat CT angio neck with con Stat CT head/brain wo con Stat 04/01/24 13:26 MRI Orbit [MR orbit wo/w con] Urgent Hospital Course (1) Visual changes: (2) Optic nerve swelling: (3) Hypertensive urgency: (4) Acute UTI: Plan This is a 78 year old male who has a significant PMH of BPH, lumbar disc herniation with radiculopathy, peripheral neuropathy, UTIs who presented to the ED due to referral from opthal due to swelling of optic nerve in setting of vision changes and GEORGE. Ischemic Optic neuropathy CVA ruled out Patient seen in Ophthalmology clinic on day of admission due to R visual changes, "something cover eye, seeing cobbwebs"; symptoms gradually came on in one week No temporal tenderness, ESR/CRP negative - Ophthalmology initially a concerned for possible GCA vs Ischemic optic neuropathy MRI brainno stroke ESR within normal limits, GCA ruled out. Carotid venous duplexno hemodynamically significant stenosis noted Neurology consulted; recommended aspirin 81 mg once a day In the afternoon of 04/01/2024, patient reported that he has sudden decrease in his right eye vision, also reported some word finding difficulty. Patient was immediately evaluated at bedside. Only light perception was seen on right eye. No other focal neurological abnormality was seen. EKG was obtained at bedside and personally reviewed; normal sinus rhythm; nonspecific ST and T wave changes. POC blood glucose was obtained; found to have blood glucose of 87 Mg per DL; 50% dextrose was ordered. Stroke alert was called due to word finding difficulty and decreasing right vision; CT head, CTA head and neck was done. No acute finding was seen in the CT head. CTAneck showed 90% stenosis of left ICA. Discussion was done with [place] neurology; they recommend MRI orbit which was negative for any significant findings. Also recommend ophthalmology evaluation. Updated Dr. Mendosa from ophthalmology about the consult. 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 He does not feel that patient needs to be seen by him while inpatient. He recommended outpatient follow-up. Added Lipitor 40 mg once a day; patient will need vascular surgery referral from PCP for evaluation of left ICA stenosis. Patient's blood pressure during the hospitalization was on the higher side. I discussed starting antihypertensive. However he wants to monitor home blood pressure initially and follow-up with his primary care doctor. I asked the patient not to drive until he has follow-up with ophthalmology and discuss regarding next step Acute UTI hx of recurrent UTI in the past Culture grew VRE Initially, plan was to give linezolid to the patient. However, patient reported that he does not have any symptoms of UTI. He feels the urine culture is more likely colonization; antibiotics were discontinued. Please note the above document was generated using voice recognition software. It may contain grammatical, syntax or spelling errors. Any formal questions or concerns about the content, text or information contained within the body of this dictation should be directly addressed to the provider for clarification Total Time Total Time Spent Total Time Spent (In Minutes): 45 Total Time Includes: Examination of the Patient, Discharge Planning, Medication Reconciliation, Communication With Other Providers and Other Discharge Plan Discharge Items Patient Disposition: Home - Self-Care Reason For Visit: R OPTIC NERVE SWELLING Discharge Diagnosis: Right eye vision loss, CVA ruled out Activity: Resume your previous activity Non-emergency contact: Primary Care Provider Call non-emergency contact if: you have any medication questions and your symptoms worsen Follow-up/Referrals: John Calderon DO [Primary Care Provider] - (Date & Time 04/07/2024 11:40 AM Provider Mio Dorado MD Department [facility] ) Diet: Regular Addtl Attending Provider Instructions: You were admitted to the hospital due to decrease in the vision of your right eye. You underwent evaluation with MRI brain, neurologist during the hospitalization: Stroke was ruled out. I discussed the finding with your [employer] Drilling Machine Operator and recommended that you follow-up with ophthalmology in the office; they have's set up an appointment for you next week. The neurologist recommend that you take baby aspirin, Lipitor ( Cholesterol pill)every day.The head and neck scan of your vessels showed blockages of left internal carotid artery; please follow-up with your PCP and obtain vascular surgery referral for evaluation. Blood pressure was found to be on higher side during the hospitalization. Please obtain home blood pressure monitoring device; measure blood pressure daily at home. Please measure blood pressure in a sitting position with your arm rested. Do not cross your legs while the blood pressure is being measured. Keep a log of it and follow-up with your primary care doctor with the results. Pending Studies at Discharge: No Stand-Alone Forms: [facility], Smoking Cessation Medications and DC Order Prescriptions: New atorvastatin 40 mg Tablet 40 mg PO QAM Qty: 30 0RF aspirin 81 mg Tablet,Delayed Release (Dr/Ec) 81 mg PO DAILY Qty: 30 0RF Continued montelukast [Singulair] 10 mg tablet 10 mg PO QAM finasteride [Proscar] 5 mg tablet 5 mg PO QAM tamsulosin 0.4 mg capsule 0.4 mg PO QPM Patient Comments: takes after dinner PreserVision AREDS-2 250-90-40-1 mg Tablet,Chewable 1 tab PO BID polyethylene glycol 3350 [Miralax] 17 gram Powder In Packet 17 g PO DAILY 30 Days Qty: 30 1RF sennosides [Senokot] 8.6 mg Tablet 8.6 mg PO QAM PRN (Reason: Constipation) acetaminophen 325 mg Tablet 650 mg PO Q8H PRN (Reason: Pain) Discharge Orders: Discharge Order (Routine); Ordered 04/02/24 Ordered By: Roosevelt Alaniz Admission Data Admit Date/Time: 03/30/24 17:34 Attending Provider: Roosevelt Alaniz Admit Provider: Emory Yee Primary Care Provider: John Cadleron Other Providers: Emory Yee; Romel Savage; Arsenio Mendosa Other Interventions: Discharge Summary Assessment (RN) Last Done: 04/02/24 11:53
== END 2024-04-02 14:53 | disposition home or self-care (01) | DRG 123 ==
LOC: ED 14:56 → SUATTDRO 17:34 → 2W 17:34

== ENCOUNTER 2024-08-24 08:42 | Inpatient (IN) ==
[2024-08-24 09:26] LABS: Basophils # (auto) 0.03 K/uL (0.00-0.20); Basophils % (auto) 0.5 %; Eosinophils # (auto) 0.23 K/uL (0.00-0.50); Eosinophils % (auto) 3.9 %; Hematocrit (blood only) 42.2 % (42.0-52.0); Hemoglobin 14.5 g/dl (14.0-18.0); Immature Granulocytes # (auto) 0.02 K/uL (0.01-0.20); Immature Granulocytes % (auto) 0.3 %; Lymphocytes % (auto) 18.7 %; Mean Corpuscular Hgb Conc 34.4 g/dL (32.0-36.0); Mean Corpuscular Volume 90.2 fL (80.0-100.0); Mean Platelet Volume 9.8 fL (9.4-12.4); Monocytes # (auto) 0.69 K/uL (0.11-0.59); Monocytes % (auto) 11.8 %; Neutrophils % (auto) 64.8 %; Platelet Count 185 K/uL (130-400); RDW Coefficient of Variation 13.2 % (11.5-14.5); Red Blood Count 4.68 M/uL (4.70-6.10); White Blood Count 5.87 K/ul (4.8-10.8)
[2024-08-24 09:34] LABS: Appearance Urine Clear (Clear); Bilirubin Urine Negative (Negative); Blood Urine Negative (Negative); Color Urine Yellow; Glucose Urine UA Negative (Negative); Ketones Urine Negative (Negative); Leukocyte Esterase Urine Negative (Negative); Nitrite Urine Negative (Negative); Protein Urine Negative (Negative); Urobilinogen Urine Negative (Negative)
--- NOTE | 2024-08-24 09:44 | Emergency Department Note ---
Impression & Plan Acute confusion, Internal carotid artery dissection ED Provider Note NAME: HARIS HERNANDEZ AGE: 78 SEX: M : 1945 ARRIVES VIA: Ambulance INFORMANT: Patient, ED PROVIDER(S): Domenico Crawford MD CHIEF COMPLAINT: Confusion HPI: This is a 78-year-old male presenting for confusion. Patient tells that he has had 5 previous UTIs in the past few months. He was reportedly confused as per EMS. His is supposed be coming in. Patient states that he had a carotid surgery on the left side July 28. He notes he feels somewhat confused and off. He otherwise reports no specific pain. No chest pain, shortness of breath, fever or chills. ROS: See above HPI for pertinent positives & negatives. A total of 10 systems reviewed and were otherwise negative. PAST MEDICAL HISTORY: See Below PAST SURGICAL HISTORY: See Below FAMILY HISTORY: See Below SOCIAL HISTORY: See Below HOME MEDICATIONS: See Below ALLERGIES: See Below VITALS: See Below PHYSICAL EXAMINATION: General: resting comfortably in no acute distress Head: Normocephalic and atraumatic Eyes: Normal inspection, extraocular muscles intact Ear, nose, throat: Normal external exam Neck: Normal range of motion Respiratory: lungs clear to auscultation bilaterally Cardiovascular: Regular rate/rhythm, no murmur GI: soft, nontender, no guarding or rebound Extremities: nontender, moves all extremities Neuro: The patient awake and alert, appropriately conversive, no focal deficits, symmetric faces cranials 2-12 grossly intact, no motor dysfunction Skin: Warm, dry, and intact MEDICAL DECISION MAKING: This is a 78-year-old male presenting for confusion. Patient clinically appears well but is mildly slow to respond. Consider UTI, low concern for stroke. - Will get basic blood work to help assess underlying pathology. Patient had numerous UTIs and delirium as result here. - Bloodwork is reviewed showing no significant leukocytosis, anemia, electrolyte or creatinine abnormality. No signs of UTI on urinalysis -CT imaging of the head as well as CTA imaging reveals a nonspecific 5 [place] linear nonocclusive defect within the proximal cervical segment of the left ICA. Thrombus versus short segment dissection or differential considerations. -On my examination, patient does not have any specific neurologic deficits. He is slow to respond but does not have any specific signs of LVO. -Discussed care with Dr. Wyman, neurologist at [facility]. He recommends vascular surgery consultation as they were the ones that did the endarterectomy. -Discussed care with Dr. Gauthier, vascular surgery at [facility]. He states that based on the patient's current symptoms as well as the description of the image finding, these may not be related. He is already on aspirin currently which would be the treatment for this. He states that this time patient would be able to remain in this emergency department. If anything is to change, this should be consulted and patient to be transferred. - I have discussed this with the patient. Will admit the patient to the hospitalist service here, under [facility] team. - Differential diagnosis: UTI, encephalitis, stroke, dissection Diagnostics interpreted by me: ECG: ECG independently interpreted by me with normal sinus rhythm, rate of 69,normal LA, normal QRS, normal QTc, no ST segment elevations consistent with STEMI criteria Cardiac Monitoring: An order was placed for continuous cardiac monitoring. The monitor shows a rate of 60 with sinus rhythm. Past Med/Surg History Problem List (Updated 08/24/24 @ 15:47 by Domenico Crawford MD) Internal carotid artery dissection (Acute) Ambulatory dysfunction GERD (gastroesophageal reflux disease) Carotid artery stenosis Dyslipidemia Acute confusion (Acute) Lumbar disc herniation with radiculopathy Urethral stricture (Acute) BPH (benign prostatic hypertrophy) (Acute) Medical History (Updated 08/24/24 @ 15:47 by Domenico Crawford MD) Acute metabolic encephalopathy Hypertensive urgency Optic nerve swelling Visual changes Acute delirium Acute UTI Pseudomonas infection Complicated UTI (urinary tract infection) Abnormal CT scan of lung Urinary tract infection Urinary retention Constipation Complication of catheter Complication of catheter Back strain Back pain Abdominal pain Bronchitis Ulcerative colitis Decreased vision of right eye Altered mental status Situational anxiety Family history of macular degeneration "Taking preservision for" Constipation "Uses Senokot to ease straining/stress to prostate" Hx of colonic polyp "I just have one" History of urinary retention No issues at this time 2016, prior to his TURP procedure History of herniated intervertebral disc no sx, therapy only Hx of bronchitis hx ~2009, given his inhaler at this time, has not used since he has bronchitis Hx of ulcerative colitis "Just an episode in " BPH (benign prostatic hyperplasia) Osteoarthritis History of allergic rhinitis Surgical History (Updated 08/24/24 @ 13:45 by THOMAS Mccloud) History of left-sided carotid endarterectomy July 2024 at [facility] by Dr Villarreal History of bronchoscopy Hx of colonoscopy 2018, next scheduled 2023 Hx of eye surgery [facility] - left eye, for "lazy" eye History of bronchoscopy back in the ; for a foreign body in his lungs "unable to be removed" S/P TURP 11/2015, [facility] Dr. 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 Beliefs That Will Affect Care: None marital status: Current Living Situation: Spouse current occupational status: retired Feels Safe at Home: Yes Assistive Devices: Cane Allergies Allergies Allergy/AdvReac Type Severity Reaction Status Date / Time doxycycline Allergy Tongue Verified 05/11/24 10:39 Swelling/Upset Stomach/Muscle Aches celecoxib [From Celebrex] AdvReac Intermediate Diarrhea Verified 05/11/24 10:39 duloxetine AdvReac Intermediate Chest Verified 05/11/24 10:39 tightness, diarrhea gabapentin AdvReac Intermediate dried out Verified 05/11/24 10:39 tear ducts omeprazole AdvReac Intermediate constipatio Verified 05/11/24 10:39 n pregabalin [From Lyrica] AdvReac Intermediate dried out Verified 05/11/24 10:39 tear ducts sulfamethoxazole AdvReac Intermediate constipatio Verified 05/11/24 10:39 [From Bactrim] n trimethoprim [From Bactrim] AdvReac Intermediate constipatio Verified 05/11/24 10:39 n goats milk Allergy Swelling Uncoded 05/11/24 10:39 of Lip/Tongue/Throat Home Meds Home Medications Medication Instructions Recorded Confirmed finasteride 5 mg tablet (Proscar) 5 mg PO QAM 07/21/19 08/24/24 montelukast 10 mg tablet 10 mg PO QPM 07/21/19 08/24/24 (Singulair) tamsulosin 0.4 mg capsule 0.4 mg PO QPM 07/21/19 08/24/24 vit C 250 mg-E 90 mg-zinc 40 1 tab PO BID 08/29/22 08/24/24 mg-copper 1 [id number] chew tablet (PreserVision AREDS-2) acetaminophen 650 mg 1,300 mg PO HS Pain 05/11/24 08/24/24 tablet,extended release (Tylenol Arthritis Pain) aspirin 81 mg tablet,delayed 81 mg PO QAM 05/11/24 08/24/24 release polyethylene glycol 3350 17 gram 17 g PO DAILY PRN Constipation 05/11/24 08/24/24 oral powder packet (Miralax) carboxymethylcellulose sodium 1 % 2 drp OPB QID 08/24/24 08/24/24 eye liquid gel drops Previous Rx's Medication Instructions Recorded atorvastatin 40 mg tablet 40 mg PO QAM #30 tabs 04/02/24 Results & Data (ED) Vital Signs Vital Signs - 24 hr 08/24/24 09:00 08/24/24 09:01 08/24/24 09:07 Temperature 36.6 C Temperature Source Oral Pulse Rate 69 Pulse Rate [Apical] 69 Respiratory Rate 23 20 Respiratory Effort / Characteristics Non-Labored Spontaneous Non-Labored Spontaneous Respiratory Depth Normal Normal Blood Pressure 157/92 H Blood Pressure [Right Arm] 157/92 H Blood Pressure Mean 113 Blood Pressure Mean [Right Arm] 113 Blood Pressure Position Semi-fowlers Blood Pressure Position [Right Arm] Semi-fowlers Pulse Oximetry 100 100 100 Oxygen Delivery Method Room Air Room Air Room Air Sepsis Recent Fever Within 48 Hours No Sepsis New/Unexplained Change in Mental Status Yes Sepsis Action Taken by Nursing No Action Required 08/24/24 09:07 08/24/24 09:14 08/24/24 09:24 Temperature Temperature Source Pulse Rate 80 63 Pulse Rate [Apical] Respiratory Rate 20 Respiratory Effort / Characteristics Respiratory Depth Blood Pressure Blood Pressure [Right Arm] Blood Pressure Mean Blood Pressure Mean [Right Arm] Blood Pressure Position Blood Pressure Position [Right Arm] Pulse Oximetry 100 100 Oxygen Delivery Method Room Air Room Air Sepsis Recent Fever Within 48 Hours Sepsis New/Unexplained Change in Mental Status Sepsis Action Taken by Nursing 08/24/24 11:00 08/24/24 13:00 Temperature Temperature Source Pulse Rate Pulse Rate [Apical] 71 64 Respiratory Rate 15 16 Respiratory Effort / Characteristics Non-Labored Spontaneous Non-Labored Spontaneous Respiratory Depth Normal Blood Pressure Blood Pressure [Right Arm] 142/81 H 120/74 Blood Pressure Mean Blood Pressure Mean [Right Arm] 101 89 Blood Pressure Position Blood Pressure Position [Right Arm] Semi-fowlers Pulse Oximetry 99 97 Oxygen Delivery Method Room Air Room Air Sepsis Recent Fever Within 48 Hours Sepsis New/Unexplained Change in Mental Status Sepsis Action Taken by Nursing Laboratory Data 08/24/24 09:09 08/24/24 09:09 Lab Results 08/24/24 08/24/24 Range/Units 09:09 09:16 WBC 5.87 (4.8-10.8) K/ul RBC 4.68 L (4.70-6.10) M/uL Hgb 14.5 (14.0-18.0) g/dl Hct 42.2 (42.0-52.0) % MCV 90.2 (80.0-100.0) fL MCH 31.0 (25.0-34.0) pg MCHC 34.4 (32.0-36.0) g/dL RDW Std Deviation 43.0 (36.4-46.3) fL RDW Coeff of Maddy 13.2 (11.5-14.5) % Plt Count 185 (130-400) K/uL MPV 9.8 (9.4-12.4) fL Immature Gran % (Auto) 0.3 % Neut % (Auto) 64.8 % Lymph % (Auto) 18.7 % Davidson % (Auto) 11.8 % Eos % (Auto) 3.9 % Baso % (Auto) 0.5 % Neut # (Auto) 3.80 (1.40-6.50) K/uL Lymph # (Auto) 1.10 L (1.20-3.40) K/uL Davidson # (Auto) 0.69 H (0.11-0.59) K/uL Eos # (Auto) 0.23 (0.00-0.50) K/uL Baso # (Auto) 0.03 (0.00-0.20) K/uL Immature Gran # (Auto) 0.02 (0.01-0.20) K/uL Sodium 137 (136-145) mmol/L Potassium 3.8 (3.5-5.1) mmol/L Chloride 105 (98-107) mmol/L Carbon Dioxide 26 (21-32) mmol/L Anion Gap 6 (3-11) BUN 16 (6-23) mg/dl Creatinine 0.78 (0.6-1.4) mg/dl Est Cr Clr Drug Dosing 96.3 ml/min eGFR 92.42 BUN/Creatinine Ratio 20.5 H (10-20) Glucose 88 (70-99(Fasting)) mg/dl Calcium 9.1 (8.6-10.3) mg/dl Total Bilirubin 0.8 (0.2-1.0) mg/dl AST 26 (13-39) U/L ALT 43 (7-52) U/L Alkaline Phosphatase 64 (34-104) U/L Total Protein 6.9 (6.0-8.3) gm/dl Albumin 4.0 (3.4-5.0) gm/dl Globulin 2.9 (2.5-4.0) gm/dl Albumin/Globulin Ratio 1.4 (0.9-2) TSH 1.430 (0.300-4.500) uIu/ml Urine Color Yellow Urine Appearance Clear (Clear) Urine pH 7.0 (4.5-7.5) Ur Specific [place] 1.010 (1.000-1.030) Urine Protein Negative (Negative) Urine Glucose (UA) Negative (Negative) Urine Ketones Negative (Negative) Urine Blood Negative (Negative) Urine Nitrite Negative (Negative) Urine Bilirubin Negative (Negative) Urine Urobilinogen Negative (Negative) Ur Leukocyte Esterase Negative (Negative) Administered Medications Discontinued Medications Ioversol (Optiray 320 125ml) 119 ml IV ONCE ONE Stop: 08/24/24 10:14 Last Admin: 08/24/24 10:14 Dose: 119 ml Documented By: PAVEL Imaging Data Radiologist's Impression: Head CT 08/24/24 09:12 CT SCAN OF THE BRAIN WITHOUT IV CONTRAST CLINICAL HISTORY: Recent carotid surgery. Confusion. COMPARISON STUDY: Head CT April 01, 2024. TECHNIQUE: Unenhanced axial CT scan of the brain was performed from the vertex to the skull base. A dose lowering technique was utilized adhering to the principles of ALARA. CT DOSE: 1112.66 mGy.cm FINDINGS: Brain parenchyma: No acute intracranial hemorrhage, midline shift or mass effect is present. [place]-wh[place] matter differentiation is preserved. There are no extra- axial fluid collections. There are no findings to suggest acute dural sinus thrombosis or acute territorial infarct. White matter hypodensities are unchanged and favor small vessel disease. Ventricles, sulci, cisterns: The ventricular system is stable. The basal cisterns are patent. Calvarium: Unremarkable. Sinuses and mastoids: There is minimal ethmoid sinus mucosal thickening. The mastoid air cells are well pneumatized. Orbits: The bony orbits are grossly intact. IMPRESSION: No acute intracranial findings. No change in appearance of the brain. ACT 112: Negative or not required by law. Electronically signed by: Ulysses Diaz M.D. 08/24/2024 10:27 AM Head CTA 08/24/24 09:12 CT angio head w con, CT angio neck with con CLINICAL HISTORY: 78 years-old Male with recent carotid surg, confusion after. Acutely altered mental status with recent carotid surgery COMPARISON STUDY: CTA head and neck 04/01/2024 TECHNIQUE: Following the IV administration of 119 cc of Optiray, CT angiogram of the head and neck was performed from the aortic arch to the skull apex. Images are reviewed in the axial, sagittal, and coronal planes. 3-D MIPS images are created and assessed. IV contrast was administered without complication. All measurements were obtained according to NASCET criteria. A dose lowering technique was utilized adhering to the principles of ALARA. FINDINGS: CT BRAIN: Dictated separately. CT ANGIOGRAM OF THE HEAD AND NECK: Three-vessel morphology of the thoracic aortic arch. There is patency of the innominate and imaged subclavian arteries. The common carotid arteries are widely patent. Prominent atherosclerosis of the right carotid bulb again noted without high-grade stenosis. Interval left carotid endarterectomy. At the site of surgery within the proximal cervical segment left ICA on image 274 series 7 there is a 5 mm linear nonocclusive filling defect terminating from the left posterolateral ICA wall. Deep tissue edema with small focus of air adjacent to the left carotid bulb is a postsurgical finding. Small foci of fluid in the adjacent tissues measuring up to 11 mm, also postoperative. Internal carotid arteries are otherwise widely patent and within normal limits. Bilateral anterior and middle cerebral arteries are also patent. The vertebrobasilar system and posterior cerebral arteries are widely patent. There is no aneurysm, high-grade stenosis, or proximal branch occlusion identified. Dural sinuses appear patent. The lung apices appear to be clear. No acute fracture. Multilevel degenerative changes of the cervical spine. IMPRESSION: 1. Postoperative changes compatible with recent left-sided endarterectomy with foci of air and fluid within the deep operative bed. 2. There is a nonspecific 5 mm linear of nonocclusive defect within the proximal cervical segment left ICA. Thrombus versus short segment dissection are differential considerations. 3. Prominent atherosclerotic plaque of the right carotid bulb redemonstrated without high-grade stenosis. 4. Unremarkable CTA of the head. ACT 112: Negative or not required by law. The above report was generated using voice recognition software. It may contain grammatical, syntax or spelling errors. Electronically signed by: Orion Rios M.D. 08/24/2024 10:32 AM Neck CTA 08/24/24 09:12 CT angio head w con, CT angio neck with con CLINICAL HISTORY: 78 years-old Male with recent carotid surg, confusion after. Acutely altered mental status with recent carotid surgery COMPARISON STUDY: CTA head and neck 04/01/2024 TECHNIQUE: Following the IV administration of 119 cc of Optiray, CT angiogram of the head and neck was performed from the aortic arch to the skull apex. Images are reviewed in the axial, sagittal, and coronal planes. 3-D MIPS images are created and assessed. IV contrast was administered without complication. All measurements were obtained according to NASCET criteria. A dose lowering technique was utilized adhering to the principles of ALARA. FINDINGS: CT BRAIN: Dictated separately. CT ANGIOGRAM OF THE HEAD AND NECK: Three-vessel morphology of the thoracic aortic arch. There is patency of the innominate and imaged subclavian arteries. The common carotid arteries are widely patent. Prominent atherosclerosis of the right carotid bulb again noted without high-grade stenosis. Interval left carotid endarterectomy. At the site of surgery within the proximal cervical segment left ICA on image 274 series 7 there is a 5 mm linear nonocclusive filling defect terminating from the left posterolateral ICA wall. Deep tissue edema with small focus of air adjacent to the left carotid bulb is a postsurgical finding. Small foci of fluid in the adjacent tissues measuring up to 11 mm, also postoperative. Internal carotid arteries are otherwise widely patent and within normal limits. Bilateral anterior and middle cerebral arteries are also patent. The vertebrobasilar system and posterior cerebral arteries are widely patent. There is no aneurysm, high-grade stenosis, or proximal branch occlusion identified. Dural sinuses appear patent. The lung apices appear to be clear. No acute fracture. Multilevel degenerative changes of the cervical spine. IMPRESSION: 1. Postoperative changes compatible with recent left-sided endarterectomy with foci of air and fluid within the deep operative bed. 2. There is a nonspecific 5 mm linear of nonocclusive defect within the proximal cervical segment left ICA. Thrombus versus short segment dissection are differential considerations. 3. Prominent atherosclerotic plaque of the right carotid bulb redemonstrated without high-grade stenosis. 4. Unremarkable CTA of the head. ACT 112: Negative or not required by law. The above report was generated using voice recognition software. It may contain grammatical, syntax or spelling errors. Electronically signed by: Orion Rios M.D. 08/24/2024 10:32 AM Discharge Plan Visit Data Chief Complaint: Confusion Stated Complaint: confusion ED Provider: Domenico Crawford Discharge Problem: Acute confusion, Internal carotid artery dissection Patient Disposition: Admitted As Inpatient Discharge Instructions Interventions: ED Discharge Assessment Last Done: 08/24/24 14:59
[2024-08-24 09:49] LABS: Albumin Globulin Ratio 1.4 (0.9-2); BUN Creatinine Ratio 20.5 (10-20); Bilirubin,Total 0.8 mg/dl (0.2-1.0); Calcium 9.1 mg/dl (8.6-10.3); Creatinine Clr Calc Pharmacy 96.3 ml/min; Globulin 2.9 gm/dl (2.5-4.0); Potassium 3.8 mmol/L (3.5-5.1); Total Protein 6.9 gm/dl (6.0-8.3)
--- OUTSIDE RECORDS SUMMARY | 2024-08-24 09:57 | External Medical Summary | Continuity of Care Document ---
Author Name Unknown Organization [id number] Address [address] [place] [id number] Care Team Providers Care Rn Palliative Name Role Phone John Calderon Primary Care Physician [phone] Encounter [facility] [id number] Date(s): 04/28/24 - 04/28/24 [facility] [address] [address] [place] [id number] [address] [address] Encounter Diagnosis Hallux rigidus, right foot(Discharge Diagnosis) - 04/28/24 Right foot pain(Discharge Diagnosis) - 04/28/24 Discharge Disposition: Home or Self Care Attending [...] Title:Follow Up Visit Author:LAMBERT Ruvalcaba, González Acuña Date:04/28/24 1. Hallux rigidus, right foot Patient has failed conservative treatment, recommend surgical intervention right foot Patient made aware of risks and benefits and signed consent for the surgery Patient had PDMP site checked and [place] for narcotic medication - Medication prescribed today includes: [place] Patient has failed conservative treatment, recommend surgical intervention - right foot, patient has tried conservative treatments including changing shoes, anti inflammatory medications, shoe inserts and pads without relief Patient will have medical clearance per PCP chest x-ray, EKG ordered as well as CBC with differential and basic metabolic profile, patient had clearance from vascular medicine and urology also had a recent EKG Rationale for surgery is ongoing pain secondary to large bone spur that is no longer improving with conservative treatment of steroid injections recommending cheilectomy to remove the large spur to help better accommodate shoe gear DVT risk is low patient will bear full weight on right foot with use of a postop shoe, patient will take an 81 mg for DVT [...] follow-up with me 1 week after surgery 2. Right foot pain Medications Aspirin Low Dose 81 mg oral delayed release tablet TAKE 1 TABLET BY MOUTH EVERY DAY Start Date: 04/28/24 Status: Ordered atorvastatin 40 mg oral tablet TAKE 1 TABLET BY MOUTH EVERY DAY IN THE MORNING Start Date: 04/28/24 Status: Ordered finasteride 5 mg oral tablet Start: 09/23/12 12:13:00 PM EDT, 1 tab, PO, Daily Start Date: 09/23/12 Status: Ordered Flomax 0.4 mg oral capsule Start: 09/23/12 12:12:00 PM EDT, 1 cap, PO, Daily Start Date: 09/23/12 Status: Ordered ICaps AREDS 2 oral capsule Start: 08/04/23 1:25:00 PM EDT Start Date: 08/04/23 Status: Ordered [place] 5 mg-325 mg oral tablet Start: 04/28/24 8:32:00 AM EST, 1 tab, PO, q6h, Disp# 20 tab, Refills: 0, PRN: as needed for pain, Pharmacy: [facility]/pharmacy #[id number] Start Date: 04/28/24 Stop Date: 05/05/24 Status: Ordered [place] 5 mg-325 mg oral tablet Start: 09/14/23 12:05:00 PM EDT, 1 tab, PO, q6h, Disp# 10 tab, Refills: 0, PRN: as needed for pain, Pharmacy: [facility]/pharmacy #[id number] Start Date: 09/14/23 Stop Date: 09/21/23 Status: [...] 4 times a day, PRN: Pain, Pharmacy: [facility]/pharmacy #[id number] Start Date: 03/01/24 Status: Ordered Mental Status 04/28/24 Barriers to Learning one year None evide nt Mandatory Health Literacy Documentation Yes Health Literacy Communication Barriers N ever Primary Language Citizen Of [place] Problem List Condition Confirmation Course Effective Dates [...] Service Informant Right foot pain Discharge Diagnosis 04/28/24 Non-Specified Hallux rigidus, right foot Discharge Diagnosis 04/28/24 Non-Specified Procedures Procedure Date Related Diagnosis Body Site Status TURP - Transurethral resection of prostate 2015 Completed Knee surgery 2000 Completed Surgery of the urethra Co mpleted Vital Signs Most recent to oldest [Reference Range]: 1 Height 189.3 cm (04/28/24 9:01 AM) Patient Weight 96.0 kg (04/28/24 9:01 AM) Body Mass Index 26.79 kg/m2 (04/28/24 9:01 AM) Heart Rate 71 bpm (04/28/24 9:01 AM) Blood Pressure 132/86mmHg (04/28/24 9:01 AM) Cuff Pulse Pressure 46 mmHg (1/2/25 9:01 AM) BP Location # 1 Left Arm (04/28/24 9:01 AM) Social History Social History Type Response Smoking Status Never smoked cigaret makeda Sex Male Sex Representation Male (finding) Ortho Outpt Note * LAMBERT Ruvalcaba Christina L: PERFORM Event Display: Ortho Outpt Note Authored Date: [id number] Chief Complaint right foot pre-op Primary Care Provider DO Calderon Trevor S Subjective Patient is a very pleasant 78-year-old male presenting today for preoperative evaluation for right foot first metatarsal phalangeal joint cheilectomy Patient has a history of significant pain in the feet he has herniated disks and L5 radiculopathy this limits his ambulation he has had significant worsening of his hallux rigidus he used to receive significant improvement from steroid injections however they are no longer helping his discomfort. The size of the dorsal exostosis prevents him from comfortably wearing shoe gear and he presents for evaluation for preop. 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 Surgical history–surgery of the urethra knee surgery. Medications–reviewed. Allergies–reviewed. Social history–denies smoking. Family history–noncontributory Review of Systems Extremity numbness Objective Physical Exam Problem focused right foot: Dorsalis pedis pulse palpable 1 out of 4 and audible with hand-held Doppler, posterior tibial pulse palpable 1 out of 4 and audible with hand-held Doppler, capillary refill time less than 3 seconds, skin turgor is good to all digits of the right foot with pedal hair present, patient saw vascular medicine prior to surgery and was cleared Gross sensation intact all digits of the right foot, history of neuropathy right foot Skin is clean dry and intact without maceration or breakdown. Right great toe with hallux rigidus grade 3, crepitus noted on physical evaluation with essentially no dorsiflexion or plantarflexion. Patient experiences discomfort secondary to the large dorsalexostosis, having increased pain not responsive to previous injection, patient is unable to wear shoe gear secondary to this large size of the exostosis recommend cheilectomy procedure X-ray dictation 3 views right foot: Taken at March 30, 2023 visit Images 2024-04-28 08:31:26 Assessment/Plan 1. Hallux rigidus, right foot Patient has failed conservative treatment, recommend surgical intervention right foot Patient made aware of risks and benefits and signed consent for the surgery Patient had PDMP site checked and [place] for narcotic medication - Medication prescribed today includes: [place] Patient has failed conservative treatment, recommend surgical intervention - right foot, patient has tried conservative treatments including changing shoes, anti inflammatory medications, shoe inserts and pads without relief Patient will have medical clearance per PCP chest x-ray, EKG ordered as well as CBC with differential and basic metabolic profile, patient had clearance from vascular medicine and urology also hada recent EKG Rationale for surgery is ongoing pain secondary to large bone spur that is no longer improving withconservative treatment of steroid injections recommending cheilectomy to remove the large spur to help better accommodate shoe gear DVT risk is low patient will bear full weight on right foot with use of a postop shoe, patient will take an 81 mg for DVT [...] follow-up with me 1 week after surgery 2. Right foot pain Electronic Signature on File Electronically Reviewed/Signed by: Shira Ruvalcaba DPM Author Signature Dt/Tm:04/28/2024 08:35 AM Division of Sports Medicine CLR Patient Care team information Care Team Personnel Name: DO Calderon Trevor S Position: Referring DIRECT Member Role: Primary Care Provider Address: [place] [address] [place] Care Team Related Persons Name: SHAKIRA HERNANDEZ
[2024-08-24 10:03] LABS: Thyroid Stimulating Hormone 1.43 uIu/ml (0.300-4.500)
[2024-08-24] MEDS: OPTIRAY 320 125ml IV ONE (10:14)
--- NOTE | 2024-08-24 10:28 | CT Scan Report ---
CT SCAN OF THE BRAIN WITHOUT IV CONTRAST CLINICAL HISTORY: Recent carotid surgery. Confusion. COMPARISON STUDY: Head CT April 01, 2024. TECHNIQUE: Unenhanced axial CT scan of the brain was performed from the vertex to the skull base. A dose lowering technique was utilized adhering to the principles of ALARA. CT DOSE: 1112.66 mGy.cm FINDINGS: Brain parenchyma: No acute intracranial hemorrhage, midline shift or mass effect is present. [place]-wh[place] matter differentiation is preserved. There are no extra-axial fluid collections. There are no find ings to suggest acute dural sinus thrombosis or acute territorial infarct. White matter hypodensities are unchanged and favor small vessel disease. Ventricles, sulci, cisterns: The ventricular system is stable. The basal cisterns are patent. Calvarium: Unremarkable. Sinuses and mastoids: There is minimal ethmoid sinus mucosal thickening. The mastoid air cells are we ll pneumatized. Orbits: The bony orbits are grossly intact. IMPRESSION: No acute intracranial findings. No change in appearance of the brain. ACT 112: Negative or not required by law. Electronically signed by: Ulysses Diaz M.D. 08/24/2024 10:27 AM
--- NOTE | 2024-08-24 10:33 | CT Scan Report ---
CT angio head w con, CT angio neck with con CLINICAL HISTORY: 78 years-old Male with recent carotid surg, confusion after. Acutely altered men grover status with recent carotid surgery COMPARISON STUDY: CTA head and neck 04/01/2024 TECHNIQUE: Following the IV administration of 119 cc of Optiray, CT angiogram of the head and neck wa s performed from the aortic arch to the skull apex. Images are reviewed in the axial, sagittal, and c oronal planes. 3-D MIPS images are created and assessed. IV contrast was administered without complic ation. All measurements were obtained according to NASCET criteria. A dose lowering technique was uti lized adhering to the principles of ALARA. FINDINGS: CT BRAIN: Dictated separately. CT ANGIOGRAM OF THE HEAD AND NECK: Three-vessel morphology of the thoracic aortic arch. There is patency of the innominate and imaged carr[place] bclavian arteries. The common carotid arteries are widely patent. Prominent atherosclerosis of the ri ght carotid bulb again noted without high-grade stenosis. Interval left carotid endarterectomy. At th e site of surgery within the proximal cervical segment left ICA on image 274 series 7 there is a 5 mm linear nonocclusive filling defect terminating from the left posterolateral ICA wall. Deep tissue ed sav[place] with small focus of air adjacent to the left carotid bulb is a postsurgical finding. Small foci o f fluid in the adjacent tissues measuring up to 11 mm, also postoperative. Internal carotid arteries are otherwise widely patent and within normal limits. Bilateral anterior and middle cerebral arteries are also patent. The vertebrobasilar system and poste rior cerebral arteries are widely patent. There is no aneurysm, high-grade stenosis, or proximal bran ch occlusion identified. Dural sinuses appear patent. The lung apices appear to be clear. No acute fracture. Multilevel degenerative changes of the cervica l spine. IMPRESSION: 1. Postoperative changes compatible with recent left-sided endarterectomy with foci of air and fluid within the deep operative bed. 2. There is a nonspecific 5 mm linear of nonocclusive defect within the proximal cervical segment lef t ICA. Thrombus versus short segment dissection are differential considerations. 3. Prominent atherosclerotic plaque of the right carotid bulb redemonstrated without high-grade steno sis. 4. Unremarkable CTA of the head. ACT 112: Negative or not required by law. The above report was generated using voice recognition software. It may contain grammatical, syntax o r spelling errors. Electronically signed by: Orion Rios M.D. 08/24/2024 10:32 AM
--- NOTE | 2024-08-24 12:32 | History & Physical Report ---
Date of Service August 24, 2024 Assessment & Plan (1) Acute confusion: (2) Carotid artery stenosis: (3) Dyslipidemia: (4) BPH (benign prostatic hypertrophy): (5) Lumbar disc herniation with radiculopathy: (6) GERD (gastroesophageal reflux disease): (7) Ambulatory dysfunction: Plan 78 year old male with PMH significant for hyperlipidemia, peripheral vascular disease, BPH, lumbar degenerative disc disease, recurrent UTI, and carotid artery stenosis s/p recent endarterectomy presenting to the ED today with confusion. Acute confusion Workup reassuring against infection including unremarkable labs, negative UA, vitals stable Head CT negative Neck CTA revealed nonspecific 5 mm linear of nonocclusive defect within the proximal cervical segment left ICA with thrombus versus short segment dissection as differentials ER physician discussed with vascular and neurology who advised no intervention and continue aspirin Placed consult for vascular surgery and neurology - appreciate recs Neuro exam unremarkable for focal deficits Order MRI brain w/wo contrast to rule out stroke Neuro checks q4hr Order VBG and ammonia Speech consult for difficulty swallowing Ambulatory dysfunction Reported by patient's Falls precautions PT/OT consults Carotid artery stenosis s/p left endarterectomy Hyperlipidemia/peripheral vascular disease Patient follows with Vascular Surgery and had post op follow up on 08/17 Continue aspirin and atorvastatin BPH Continue tamsulosin and finasteride DVT Prophylaxis: SCDs for now until brain MRI Code Status: FULL CODE - As per discussion at bedside with the patient. PCP: Dr John Calderon DO Disposition: admit to [facility] Patient seen in collaboration with Dr Yee. Please see addendum. I spent a total of 75 minutes coordinating, documenting and providing care for this patient excluding time spent in the performance of separately billed services or time spent by another provider/QHP. Admission and Anticipated Discharge Date Admission Date: 08/24/2024 History of Present Illness Chief Complaint: confusion Primary Care Provider: John Calderon DO 78 year old male with PMH significant for hyperlipidemia, peripheral vascular disease, GERD, BPH, lumbar degenerative disc disease, recurrent UTI, and carotid artery stenosis s/p recent endarterectomy presenting to the ED today with confusion. He was recently admitted on 07/28/24 at [facility] for left endarterectomy due to 90% occlusion the LICA and was discharged on 07/30/24. He is a poor historian but his is at bedside with him. She reports that since his surgery, he has had days where he is alert and clear and other days where he is confused and doesn't know what is going on. She states he is still able to take care of himself and always remembers who she is. The patient reports that he didn't feel right this morning and notes numbness at his incision site on his left neck. He does not know when this numbness started. He also reports difficulty swallowing and his notes that this started after the surgery. He denies fevers, chills, chest pain, SOB, abdominal pain, N/V, dysuria, weakness. He notes diarrhea but also reports that he has been taking Miralax. His notes that he is not able to get around easily and has a cane that he doesn't use. She doesn't think that he had any falls recently but notes that he may have bumped into something last night. Allergies Allergy/AdvReac Type Severity Reaction Status Date / Time doxycycline Allergy Tongue Verified 05/11/24 10:39 Swelling/Upset Stomach/Muscle Aches celecoxib [From Celebrex] AdvReac Intermediate Diarrhea Verified 05/11/24 10:39 duloxetine AdvReac Intermediate Chest Verified 05/11/24 10:39 tightness, diarrhea gabapentin AdvReac Intermediate dried out Verified 05/11/24 10:39 tear ducts omeprazole AdvReac Intermediate constipatio Verified 05/11/24 10:39 n pregabalin [From Lyrica] AdvReac Intermediate dried out Verified 05/11/24 10:39 tear ducts sulfamethoxazole AdvReac Intermediate constipatio Verified 05/11/24 10:39 [From Bactrim] n trimethoprim [From Bactrim] AdvReac Intermediate constipatio Verified 05/11/24 10:39 n goats milk Allergy Swelling Uncoded 05/11/24 10:39 of Lip/Tongue/Throat Home Medications Medication Instructions Recorded Confirmed Type finasteride 5 mg tablet (Proscar) 5 mg PO QAM 07/21/19 08/24/24 History montelukast 10 mg tablet 10 mg PO QPM 07/21/19 08/24/24 History (Singulair) tamsulosin 0.4 mg capsule 0.4 mg PO QPM 07/21/19 08/24/24 History vit C 250 mg-E 90 mg-zinc 40 1 tab PO BID 08/29/22 08/24/24 History mg-copper 1 il-ntrhwa-aiuilb chew tablet (PreserVision AREDS-2) atorvastatin 40 mg tablet 40 mg PO QAM #30 tabs 04/02/24 08/24/24 Rx acetaminophen 650 mg 1,300 mg PO HS Pain 05/11/24 08/24/24 History tablet,extended release (Tylenol Arthritis Pain) aspirin 81 mg tablet,delayed 81 mg PO QAM 05/11/24 08/24/24 History release polyethylene glycol 3350 17 gram 17 g PO DAILY PRN Constipation 05/11/24 08/24/24 History oral powder packet (Miralax) carboxymethylcellulose sodium 1 % 2 drp OPB QID 08/24/24 08/24/24 History eye liquid gel drops Past Med/Surg History Problem List (Updated 08/24/24 @ 13:48 by THOMAS Mccloud) Ambulatory dysfunction GERD (gastroesophageal reflux disease) Carotid artery stenosis Dyslipidemia Acute confusion (Acute) Lumbar disc herniation with radiculopathy Urethral stricture (Acute) BPH (benign prostatic hypertrophy) (Acute) Medical History (Updated 08/24/24 @ 13:48 by THOMAS Mccloud) Acute metabolic encephalopathy Hypertensive urgency Optic nerve swelling Visual changes Acute delirium Acute UTI Pseudomonas infection Complicated UTI (urinary tract infection) Abnormal CT scan of lung Urinary tract infection Urinary retention Constipation Complication of catheter Complication of catheter Back strain Back pain Abdominal pain Bronchitis Ulcerative colitis Decreased vision of right eye Altered mental status Situational anxiety Family history of macular degeneration "Taking preservision for" Constipation "Uses Senokot to ease straining/stress to prostate" Hx of colonic polyp "I just have one" History of urinary retention No issues at this time 2016, prior to his TURP procedure History of herniated intervertebral disc no sx, therapy only Hx of bronchitis hx ~2009, given his inhaler at this time, has not used since he has bronchitis Hx of ulcerative colitis "Just an episode in " BPH (benign prostatic hyperplasia) Osteoarthritis History of allergic rhinitis Surgical History (Updated 08/24/24 @ 13:45 by THOMAS Mccloud) History of left-sided carotid endarterectomy July 2024 at [facility] by Dr Villarreal History of bronchoscopy Hx of colonoscopy 2018, next scheduled 2023 Hx of eye surgery [facility] Gurrola - left eye, for "lazy" eye History of bronchoscopy back in the ; for a foreign body in his lungs "unable to be removed" S/P ALEXANDRO 11/2015, maximilian Dietz H/O knee surgery 2000 left, tendon reattachment surgery History of dilation of urethra (~2000) Family History Father Cerebral infarction due to occlusion of cerebellar artery Social History Smoking Status: Never smoker Second Hand Exposure: No; Do You Dip or Chew Tobacco: No; Hx Alcohol Use: Yes Hx Substance Use: No Preferred Language: Sinhala Communication Ability: hesitancy Communication Ability Comment: Difficulty finding words when upset Motor Block Mechanic Required: No Beliefs That Will Affect Care: None marital status: Current Living Situation: Spouse current occupational status: retired Feels Safe at Home: Yes Assistive Devices: Cane Review of Systems Review of Systems: All systems reviewed & are unremarkable except as noted in HPI & below Physical Exam Physical Exam: refer to exam by Dr Yee Results & Data Results & Data Vital Signs (Past 12 Hours) Vital Signs Temp Pulse Pulse Resp BP BP Pulse Ox 08/24/24 11:00 71 15 142/81 H 99 08/24/24 09:24 63 08/24/24 09:14 100 08/24/24 09:07 80 20 100 08/24/24 09:07 100 08/24/24 09:01 36.6 C 69 20 157/92 H 100 08/24/24 09:00 69 23 157/92 H 100 O2 Del Method 08/24/24 11:00 Room Air 08/24/24 09:24 08/24/24 09:14 Room Air 08/24/24 09:07 Room Air 08/24/24 09:07 Room Air 08/24/24 09:01 Room Air 08/24/24 09:00 Room Air Laboratory Results Short CBC 08/24/24 Range/Units 09:09 WBC 5.87 (4.8-10.8) K/ul Hgb 14.5 (14.0-18.0) g/dl Hct 42.2 (42.0-52.0) % Plt Count 185 (130-400) K/uL BMP 08/24/24 09:09 Sodium 137 Potassium 3.8 Chloride 105 Carbon Dioxide 26 BUN 16 Creatinine 0.78 Glucose 88 Calcium 9.1 Liver Function 08/24/24 Range/Units 09:09 Total Bilirubin 0.8 (0.2-1.0) mg/dl AST 26 (13-39) U/L ALT 43 (7-52) U/L Alkaline Phosphatase 64 (34-104) U/L Albumin 4.0 (3.4-5.0) gm/dl Urine 08/24/24 Range/Units 09:16 Urine Color Yellow Urine Appearance Clear (Clear) Urine pH 7.0 (4.5-7.5) Ur Specific [place] 1.010 (1.000-1.030) Urine Protein Negative (Negative) Urine Glucose (UA) Negative (Negative) I have independently reviewed and interpreted patient's admitting labs including CBC, CMP, TSH, UA. Diagnostic Findings Head CT 08/24/24 09:12 CT SCAN OF THE BRAIN WITHOUT IV CONTRAST CLINICAL HISTORY: Recent carotid surgery. Confusion. COMPARISON STUDY: Head CT April 01, 2024. TECHNIQUE: Unenhanced axial CT scan of the brain was performed from the vertex to the skull base. A dose lowering technique was utilized adhering to the principles of ALARA. CT DOSE: 1112.66 mGy.cm FINDINGS: Brain parenchyma: No acute intracranial hemorrhage, midline shift or mass effect is present. [place]-wh[place] matter differentiation is preserved. There are no extra- axial fluid collections. There are no findings to suggest acute dural sinus thrombosis or acute territorial infarct. White matter hypodensities are unchanged and favor small vessel disease. Ventricles, sulci, cisterns: The ventricular system is stable. The basal cisterns are patent. Calvarium: Unremarkable. Sinuses and mastoids: There is minimal ethmoid sinus mucosal thickening. The mastoid air cells are well pneumatized. Orbits: The bony orbits are grossly intact. IMPRESSION: No acute intracranial findings. No change in appearance of the brain. ACT 112: Negative or not required by law. Electronically signed by: Ulysses Diaz M.D. 08/24/2024 10:27 AM Head CTA 08/24/24 09:12 CT angio head w con, CT angio neck with con CLINICAL HISTORY: 78 years-old Male with recent carotid surg, confusion after. Acutely altered mental status with recent carotid surgery COMPARISON STUDY: CTA head and neck 04/01/2024 TECHNIQUE: Following the IV administration of 119 cc of Optiray, CT angiogram of the head and neck was performed from the aortic arch to the skull apex. Images are reviewed in the axial, sagittal, and coronal planes. 3-D MIPS images are created and assessed. IV contrast was administered without complication. All measurements were obtained according to NASCET criteria. A dose lowering technique was utilized adhering to the principles of ALARA. FINDINGS: CT BRAIN: Dictated separately. CT ANGIOGRAM OF THE HEAD AND NECK: Three-vessel morphology of the thoracic aortic arch. There is patency of the innominate and imaged subclavian arteries. The common carotid arteries are widely patent. Prominent atherosclerosis of the right carotid bulb again noted without high-grade stenosis. Interval left carotid endarterectomy. At the site of surgery within the proximal cervical segment left ICA on image 274 series 7 there is a 5 mm linear nonocclusive filling defect terminating from the left posterolateral ICA wall. Deep tissue edema with small focus of air adjacent to the left carotid bulb is a postsurgical finding. Small foci of fluid in the adjacent tissues measuring up to 11 mm, also postoperative. Internal carotid arteries are otherwise widely patent and within normal limits. Bilateral anterior and middle cerebral arteries are also patent. The vertebrobasilar system and posterior cerebral arteries are widely patent. There is no aneurysm, high-grade stenosis, or proximal branch occlusion identified. Dural sinuses appear patent. The lung apices appear to be clear. No acute fracture. Multilevel degenerative changes of the cervical spine. IMPRESSION: 1. Postoperative changes compatible with recent left-sided endarterectomy with foci of air and fluid within the deep operative bed. 2. There is a nonspecific 5 mm linear of nonocclusive defect within the proximal cervical segment left ICA. Thrombus versus short segment dissection are differential considerations. 3. Prominent atherosclerotic plaque of the right carotid bulb redemonstrated without high-grade stenosis. 4. Unremarkable CTA of the head. ACT 112: Negative or not required by law. The above report was generated using voice recognition software. It may contain grammatical, syntax or spelling errors. Electronically signed by: Orion Rios M.D. 08/24/2024 10:32 AM Neck CTA 08/24/24 09:12 CT angio head w con, CT angio neck with con CLINICAL HISTORY: 78 years-old Male with recent carotid surg, confusion after. Acutely altered mental status with recent carotid surgery COMPARISON STUDY: CTA head and neck 04/01/2024 TECHNIQUE: Following the IV administration of 119 cc of Optiray, CT angiogram of the head and neck was performed from the aortic arch to the skull apex. Images are reviewed in the axial, sagittal, and coronal planes. 3-D MIPS images are created and assessed. IV contrast was administered without complication. All measurements were obtained according to NASCET criteria. A dose lowering technique was utilized adhering to the principles of ALARA. FINDINGS: CT BRAIN: Dictated separately. CT ANGIOGRAM OF THE HEAD AND NECK: Three-vessel morphology of the thoracic aortic arch. There is patency of the innominate and imaged subclavian arteries. The common carotid arteries are widely patent. Prominent atherosclerosis of the right carotid bulb again noted without high-grade stenosis. Interval left carotid endarterectomy. At the site of surgery within the proximal cervical segment left ICA on image 274 series 7 there is a 5 mm linear nonocclusive filling defect terminating from the left posterolateral ICA wall. Deep tissue edema with small focus of air adjacent to the left carotid bulb is a postsurgical finding. Small foci of fluid in the adjacent tissues measuring up to 11 mm, also postoperative. Internal carotid arteries are otherwise widely patent and within normal limits. Bilateral anterior and middle cerebral arteries are also patent. The vert ebrobasilar system and posterior cerebral arteries are widely patent. There is no aneurysm, high-grade stenosis, or proximal branch occlusion identified. Dural sinuses appear patent. The lung apices appear to be clear. No acute fracture. Multilevel degenerative changes of the cervical spine. IMPRESSION: 1. Postoperative changes compatible with recent left-sided endarterectomy with foci of air and fluid within the deep operative bed. 2. There is a nonspecific 5 mm linear of nonocclusive defect within the proximal cervical segment left ICA. Thrombus versus short segment dissection are d ifferential considerations. 3. Prominent atherosclerotic plaque of the right carotid bulb redemonstrated without high-grade stenosis. 4. Unremarkable CTA of the head. ACT 112: Negative or not required by law. The above report was generated using voice recognition software. It may contain grammatical, syntax or spelling errors. Electronically signed by: Orion Rios M.D. 08/24/2024 10:32 AM Code Status & VTE Plan Code Status Full Code Supervising Physician Co-Signing Physician Notes Patient is a 78-year-old male with history of recurrent UTIs, peripheral vascular disease S/P left carotid endarterectomy on July 28, 2024, BPH, lumbar disc disease and other medical problems presents with history of transient intermittent confusion, left neck numbness. Patient was recently hospitalized at [facility] and underwent left carotid endarterectomy and his postoperative course was fairly uneventful except for developing urinary retention which resolved. History is obtained from patient and patient's at bedside. Patient's family informed that he has been having intermittent confusion since recent surgery. No delusion, hallucinations. Currently he is oriented while in ED. Patient admits to have some left neck numbness but otherwise denies any headache, dizziness, change in vision, focal weakness, facial deformity, dysarthria, chest pain, dyspnea, abdominal pain, dysuria, hematuria. He has been having some difficulty swallowing postoperatively. Patient reports having chronic constipation and uses MiraLAX on daily basis. He admits to have some loose stools recently. Family also reports that patient has been having issues with ambulation/balance. Please review HPI for complete details of presentation. I personally reviewed blood work and imaging studies. CTA neck showed postoperative changes compatible with recent left-sided endarterectomy, nonspecific 5 mm linear nonocclusive defect within the proximal cervical segment left ICA. Thrombus Vs short segment dissection to be considered. Also noted prominent atherosclerotic plaque of the right carotid bulb demonstrated without high grade stenosis. Unremarkable CTA head. ER physician discussed with vascular surgery and neurology who recommended no acute interventions and advised to continue aspirin. Physical Exam: Vitals signs as noted above General Appearance:Moderately built and nourished, no apparent distress Head: normocephalic, Atraumatic Eyes: normal inspection, EOMI Neck: supple, Trachea midline, + left postsurgical scar healing with some swelling Respiratory/Chest: Normal breath sounds, CTA, No accessory muscle use Cardiovascular: S1, S2, No murmur Abdomen/GI:Soft, Non tender, Bowel sounds present Extremities/Musculoskeletal:normal inspection, no edema Neurologic/Psych:AAOX3, left neck mild numbness, grossly no focal neurological deficits Skin: normal color, warm Strokelike symptoms R/O CVA Presented with intermittent confusion, left neck numbness, balance issues with ambulation S/P recent left carotid endarterectomy Peripheral vascular disease Abnormal CTA neck: nonspecific 5 mm linear of nonocclusive defect within the proximal cervical segment left ICA. Thrombus Vs Short Segment dissection Odynophagia: Likely expected postoperative Ambulatory dysfunction TSH, UA within normal limits Will obtain MRI brain, VBG, ammonia level Reorient frequently to minimize delirium Continue aspirin, Lipitor Will request vascular surgery, neurology evaluation Neuro checks Will obtain stool studies if recurrence of diarrhea Speech eval PT OT, fall precautions I personally interviewed and examined the patient at bedside. I have reviewed the advanced practitioner's documentation on the date of service referred in note and agree with plan. Patient's care is coordinated with Ileana GUZMAN. Please refer to the documentation above for details of patient's presentation and for discussion of other issues. I spent a total [id number] coordinating, documenting, and providing care for this patient excluding time spent in the performance of separately billed services or time spent by another provider/QHP.
[2024-08-24 13:40] LABS: Base Excess VBG 1.7 mEq/L; HCO3 VBG 27 mmol/L; Oxygen Saturation VBG < 60.0 %; PCO2 VBG 45 mmHg (38-50); PO2 VBG 33 mmHg; pH VBG 7.39 (7.36-7.41)
[2024-08-24] MEDS: GADOBUTROL 65ML VIAL IV ONE (17:28)
--- NOTE | 2024-08-24 17:52 | Magnetic Resonance Report ---
Clinical History: Rule out stroke Technique: Multiple T1 and T2-weighted magnetic resonance images were obtained of the brain both before and after the administration of intravenous gadolinium contrast Comparison is made to the CT dated 04/01/2024 Findings: There is a 6 mm focus of restricted diffusion in the posterior left frontal lobe white matter, involving the centrum semiovale. This is consistent with an acute infarct. There is cerebral atrophy, within expected limits for the patient's age. There are focal and confluent areas of increased T2 signal intensity within the periventricular white matter of the cerebral hemispheres bilaterally. This is most likely due to chronic small vessel ischemic disease. No mass lesion or other area of abnormal enhancement is identified. There is no intracranial hemorrhage or other fluid collection. No midline shift or other form of herniation is seen. There is no hydrocephalus. The pituitary gland appears normal. Normal flow-voids are seen within the arteries of the [id number]. The orbits and paranasal sinuses appear normal. The mastoid air cells appear clear Impression: 1. 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 Cerebral atrophy and chronic small vessel ischemic disease ACT 112: Positive. There are findings on this exam that require communication between the performing entity and the patient following Patient Test Result Information Act ([place] ACT 112) guidelines. Electronically signed by Wenceslao Hampton 08-24-2024 5:51 PM
[2024-08-24] MEDS: HEPARIN SOD 5,000 UNIT/0.5 ML VIAL SQ SCH (20:06)
[2024-08-24] MEDS: MONTELUKAST SODIUM 10 MG TABLET PO SCH (20:08)
[2024-08-24] MEDS: CLOPIDOGREL BISULFATE 75 MG TAB PO ONE (20:08)
[2024-08-24] MEDS: TAMSULOSIN HCL 0.4 MG CAP PO SCH (20:09)
[2024-08-25 06:22] LABS: Hematocrit (blood only) 41.2 % (42.0-52.0); Mean Corpuscular Hemoglobin 31.3 pg (25.0-34.0); Mean Platelet Volume 10.1 fL (9.4-12.4); Platelet Count 183 K/uL (130-400); RDW Coefficient of Variation 13.2 % (11.5-14.5); RDW Standard Deviation 44.2 fL (36.4-46.3); Red Blood Count 4.48 M/uL (4.70-6.10); White Blood Count 6.94 K/ul (4.8-10.8)
[2024-08-25 07:24] LABS: BUN Creatinine Ratio 21.5 (10-20); Calcium 8.8 mg/dl (8.6-10.3); Chol HDL Ratio 2.1 (0-5); Creatinine Clr Calc Pharmacy 97.7 ml/min; Potassium 4.1 mmol/L (3.5-5.1)
[2024-08-25 08:01] LABS: Estimated Average Glucose 100 mg/dl; Hemoglobin A1C 5.1 % (4.5-5.6)
[2024-08-25] MEDS: CLOPIDOGREL BISULFATE 75 MG TAB PO SCH (08:13)
[2024-08-25] MEDS: FINASTERIDE 5 MG TAB PO SCH (08:13)
[2024-08-25] MEDS: ASPIRIN 81 MG ECTAB PO SCH (08:14)
[2024-08-25] MEDS: ATORVASTATIN 40 MG TAB PO SCH (08:14)
--- NOTE | 2024-08-25 09:27 | Neurology Consultation ---
Date of Consultation August 25, 2024 Assessment & Plan (1) Ischemic stroke: Recommend continued stroke work up to include the following: Echocardiogram as part of complete stroke workup Continue frequent neurological assessments Obtain stat CT brain without contrast for any acute neurological decline Continue to monitor/control blood pressure & blood glucose Continue to monitor telemetry closely Recommend ZioPatch at DC if no evidence of arrhythmia during inpatient monitoring Continue to monitor renal and hepatic function, keep euvolemic Metabolic workup should include hgbA1c, fasting lipids Recommend DAPT for at least 3 weeks Recommend high dose statin therapy indefinitely if tolerated Ok from neurology perspective for VTE prophylaxis PT/OT/SLT to eval and treat Recommend eval for SHOSHANA and consider outpatient polysomnography Telehealth Consultation Telehealth Information Telehealth Information: I performed this visit using a real-time telehealth connection between my location and the patients location ([facility]). After connecting through interactive tele-video, patient was identified by name and date of and/or wristband check.Patient (or authorized healthcare represe ntative) was informed that this was a telemedicine visit and it was being conducted confidentially over secure lines. My office door was closed and no one else was present in the room with me.Patient (or authorized healthcare visitor services representative) provided consent to proceed with the visit, expressed an understanding of privacy and security of the telemedicine visit, and gave permission to have a hospital visitor services representative in the room in order to assist with the visit and to conduct portions of the visit, as needed. I informed the patient (or authorized healthcare visitor services representative) that I reviewed their record and presented the opportunity for them to ask any questions regarding the visit today. The patient agreed to participate. History of Present Illness Reason for Consultation: Confusion Requesting Physician: Dr. Crocker Attending Physician: Lizzette Post MD History of Present Illness 78yo right handed male who recently underwent left carotid CEA surgery presented with confusion reportedly occurring intermittently per documentation review reports on arrival that he will have days where he is confused and other days when he is fine. Unfortunately found to have a left frontal lobe ischemic stroke. He has undergone CTA revealing area of likely thrombus within left ICA. I have performed televideo consultation. He is alert & oriented; able to answer all questions appropriately. He tells me TEMITOPE David is the of [facility], he tells me is the next upcoming holiday. He is able to make correct change for $7.00 minus $0.75. He is able to readily name objects on televideo monitor. There is no noted facial asymmetry. Neurological exam is non lateralizing/nonfocal in terms of motor strength and coordination. He is agreebale to DAPT and statin therapy. He was currently prior to this admission taking only daily ASA. Allergies Allergy/AdvReac Type Severity Reaction Status Date / Time doxycycline Allergy Tongue Verified 05/11/24 10:39 Swelling/Upset Stomach/Muscle Aches celecoxib [From Celebrex] AdvReac Intermediate Diarrhea Verified 05/11/24 10:39 duloxetine AdvReac Intermediate Chest Verified 05/11/24 10:39 tightness, diarrhea gabapentin AdvReac Intermediate dried out Verified 05/11/24 10:39 tear ducts omeprazole AdvReac Intermediate constipatio Verified 05/11/24 10:39 n pregabalin [From Lyrica] AdvReac Intermediate dried out Verified 05/11/24 10:39 tear ducts sulfamethoxazole AdvReac Intermediate constipatio Verified 05/11/24 10:39 [From Bactrim] n trimethoprim [From Bactrim] AdvReac Intermediate constipatio Verified 05/11/24 10:39 n goats milk Allergy Swelling Uncoded 05/11/24 10:39 of Lip/Tongue/Throat Home Medications Medication Instructions Recorded Confirmed Type finasteride 5 mg tablet (Proscar) 5 mg PO QAM 07/21/19 08/24/24 History montelukast 10 mg tablet 10 mg PO QPM 07/21/19 08/24/24 History (Singulair) tamsulosin 0.4 mg capsule 0.4 mg PO QPM 07/21/19 08/24/24 History vit C 250 mg-E 90 mg-zinc 40 1 tab PO BID 08/29/22 08/24/24 History mg-copper 1 [id number]-[id number]-aclvqu chew tablet (PreserVision AREDS-2) atorvastatin 40 mg tablet 40 mg PO QAM #30 tabs 04/02/24 08/24/24 Rx acetaminophen 650 mg 1,300 mg PO HS Pain 05/11/24 08/24/24 History tablet,extended release (Tylenol Arthritis Pain) aspirin 81 mg tablet,delayed 81 mg PO QAM 05/11/24 08/24/24 History release polyethylene glycol 3350 17 gram 17 g PO DAILY PRN Constipation 05/11/24 08/24/24 History oral powder packet (Miralax) carboxymethylcellulose sodium 1 % 2 drp OPB QID 08/24/24 08/24/24 History eye liquid gel drops Patient History Medical History (Updated 08/25/24 @ 12:48 by Romel Mcdonald, DO) Acute metabolic encephalopathy Hypertensive urgency Optic nerve swelling Visual changes Acute delirium Acute UTI Pseudomonas infection Complicated UTI (urinary tract infection) Abnormal CT scan of lung Urinary tract infection Urinary retention Constipation Complication of catheter Complication of catheter Back strain Back pain Abdominal pain Bronchitis Ulcerative colitis Decreased vision of right eye Altered mental status Situational anxiety Family history of macular degeneration "Taking preservision for" Constipation "Uses Senokot to ease straining/stress to prostate" Hx of colonic polyp "I just have one" History of urinary retention No issues at this time 2015, prior to his TURP procedure History of herniated intervertebral disc no sx, therapy only Hx of bronchitis hx ~2009, given his inhaler at this time, has not used since he has bronchitis Hx of ulcerative colitis "Just an episode in " BPH (benign prostatic hyperplasia) Osteoarthritis History of allergic rhinitis Surgical History (Updated 08/24/24 @ 13:45 by THOMAS Mccloud) History of left-sided carotid endarterectomy July 2024 at [facility] by Dr Villarreal History of bronchoscopy Hx of colonoscopy 2018, next scheduled 2023 Hx of eye surgery [facility] - left eye, for "lazy" eye History of bronchoscopy back in the ; for a foreign body in his lungs "unable to be removed" S/P TURP 11/2015, [facility] Dr. Dietz H/O knee surgery 2000 left, tendon reattachment surgery History of dilation of urethra (~2000) Family History Father Cerebral infarction due to occlusion of cerebellar artery Social History Smoking Status: Never smoker Second Hand Exposure: No; Do You Dip or Chew Tobacco: No; Hx Alcohol Use: No Hx Substance Use: No Preferred Language: Romanian Communication Ability: Effective Communication Ability Comment: Difficulty finding words when upset Jointer Machine Required: No Beliefs That Will Affect Care: None marital status: Current Living Situation: Spouse current occupational status: retired Feels Safe at Home: Yes Safety Concerns: Feels Safe At This Time Assistive Devices: Cane Physical Exam Neurological Examination: Mental Status: Awake and alert. Oriented to person, place, and time. Fluency naming repetition and comprehension appear grossly intact. Affect remains appropriate. CN testing: I: Denies changes in ability to smell II:Reports no changes in visual acuity III/IV/: No evidence of gaze preference, hippus, nystagmus or roving eye movements V: Facial sensation reportedly grossly intact to light touch bilaterally VII: Facial movements appear without evidence of asymmetry VIII: Hearing appears grossly intact to loud voice bilaterally IX/X: Palate appears to elevate symmetrically XI: Shoulder shrug appears symmetric/ grossly intact bilaterally XII: Tongue protrudes midline without evidence of biting Motor exam: Strength appears grossly intact/symmetric in all extremities Sensory: Sensation is reportedly grossly intact throughout Coordination: Finger to nose and heel to lee were intact. No apparent evidence of dysmetria or dysdiadochokinesia Reflexes: Deferred Gait: Deferred Results & Data Vital Signs (Past 12 Hours) Vital Signs Temp Pulse Pulse Resp BP Pulse Ox O2 Del Method 08/25/24 07:36 36.7 C 68 18 156/87 H 98 Room Air 08/25/24 07:25 Room Air 08/25/24 05:34 57 L 08/25/24 04:00 36.6 C 66 18 134/75 99 Room Air 08/24/24 22:43 36.6 C 60 18 146/71 H 99 Room Air 08/24/24 22:02 55 L Laboratory Results Abnormal lab results 08/24/24 08/25/24 Range/Units 13:29 05:54 RBC 4.48 L (4.70-6.10) M/uL Hct 41.2 L (42.0-52.0) % Chloride 109 H (98-107) mmol/L BUN/Creatinine Ratio 21.5 H (10-20) Ammonia 16.0 L (18-72) umol/L Diagnostic Findings Brain MRI 08/24/24 13:18 Clinical History: Rule out stroke Technique: Multiple T1 and T2-weighted magnetic resonance images were obtained of the brain both before and after the administration of intravenous gadolinium contrast Comparison is made to the CT dated 04/01/2024 Findings: There is a 6 mm focus of restricted diffusion in the posterior left frontal lobe white matter, involving the centrum semiovale. This is consistent with an acute infarct. There is cerebral atrophy, within expected limits for the patient's age. There are focal and confluent areas of increased T2 signal intensity within the periventricular white matter of the cerebral hemispheres bilaterally. This is most likely due to chronic small vessel ischemic disease. No mass lesion or other area of abnormal enhancement is identified. There is no intracranial hemorrhage or other fluid collection. No midline shift or other form of herniation is seen. There is no hydrocephalus. The pituitary gland appears normal. Normal flow-voids are seen within the arteries of the [id number]. The orbits and paranasal sinuses appear normal. The mastoid air cells appear clear Impression: 1. 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 Cerebral atrophy and chronic small vessel ischemic disease ACT 112: Positive. There are findings on this exam that require communication between the performing entity and the patient following Patient Test Result Information Act ([place] ACT 112) guidelines. Electronically signed by Wenceslao Hampton 08-24-2024 5:51 PM Medications Administered Home Medications Medication Instructions Recorded Confirmed Last Taken finasteride 5 mg tablet (Proscar) 5 mg PO QAM 07/21/19 08/24/24 12/10/23 montelukast 10 mg tablet 10 mg PO QPM 07/21/19 08/24/24 12/10/23 (Singulair) tamsulosin 0.4 mg capsule 0.4 mg PO QPM 07/21/19 08/24/24 12/09/23 21:00 vit C 250 mg-E 90 mg-zinc 40 1 tab PO BID 08/29/22 08/24/24 12/10/23 09:00 mg-copper 1 uv-qllikt-budmxk chew tablet (PreserVision AREDS-2) atorvastatin 40 mg tablet 40 mg PO QAM #30 tabs 04/02/24 08/24/24 Unknown acetaminophen 650 mg 1,300 mg PO HS Pain 05/11/24 08/24/24 Unknown tablet,extended release (Tylenol Arthritis Pain) aspirin 81 mg tablet,delayed 81 mg PO QAM 05/11/24 08/24/24 Unknown release polyethylene glycol 3350 17 gram 17 g PO DAILY PRN Constipation 05/11/24 08/24/24 Unknown oral powder packet (Miralax) carboxymethylcellulose sodium 1 % 2 drp OPB QID 08/24/24 08/24/24 Unknown eye liquid gel drops Active Medications Generic Name Dose Route Start Last Admin Trade Name Freq PRN Reason Stop Dose Admin Aspirin 81 mg 08/25/24 09:00 08/25/24 08:14 Aspirin 81 Mg Ectab PO 09/24/24 08:59 81 mg QAM MENDY Administration Atorvastatin Calcium 40 mg 08/25/24 09:00 08/25/24 08:14 Atorvastatin 40 Mg Tab PO 09/24/24 08:59 40 mg QAM MENDY Administration Clopidogrel Bisulfate 75 mg 08/25/24 09:00 08/25/24 08:13 Clopidogrel Bisulfate 75 Mg Tab PO 09/24/24 08:59 75 mg QAM MENDY Administration Finasteride 5 mg 08/25/24 09:00 08/25/24 08:13 Finasteride 5 Mg Tab PO 09/24/24 08:59 5 mg QAM MENDY Administration Heparin Sodium (Porcine) 5,000 units 08/24/24 21:00 08/25/24 08:13 Heparin Sod 5,000 Unit/0.5 Ml Vial SQ 09/23/24 20:59 5,000 units Q12 MENDY Administration Montelukast Sodium 10 mg 08/24/24 21:00 08/24/24 20:08 Montelukast Sodium 10 Mg Tablet PO 09/23/24 20:59 10 mg QPM MENDY Administration Tamsulosin HCl 0.4 mg 08/24/24 21:00 08/24/24 20:09 Tamsulosin Hcl 0.4 Mg Cap PO 09/23/24 20:59 0.4 mg QPM MENDY Administration
--- NOTE | 2024-08-25 09:47 | Electrocardiogram Report ---
Test Reason : Blood Pressure : */* mmHG Vent. Rate : 69 BPM Atrial Rate : 69 BPM P-R Int : 134 ms QRS Dur : 90 ms QT Int : 410 ms P-R-T Axes : 39 68 60 degrees QTcB Int : 439 ms Sinus rhythm with Premature atrial complexes Otherwise normal ECG When compared with ECG of 01-Apr-2024 12:43, Previous ECG has undetermined rhythm, needs review QRS axis Shifted left Criteria for Lateral infarct are no longer Present Confirmed by Edwin Chance ([id number]) on 08/25/2024 9:46:58 AM Referred By: REFERRED SELF Confirmed By: Edwin Chance
--- NOTE | 2024-08-25 13:12 | Hospitalist Progress Note ---
Date of Service August 25, 2024 Assessment & Plan (1) Acute confusion: (2) Carotid artery stenosis: (3) Dyslipidemia: (4) BPH (benign prostatic hypertrophy): (5) Lumbar disc herniation with radiculopathy: (6) GERD (gastroesophageal reflux disease): (7) Ambulatory dysfunction: Plan 78 year old male with PMH significant for hyperlipidemia, peripheral vascular disease, BPH, lumbar degenerative disc disease, recurrent UTI, and carotid artery stenosis s/p recent endarterectomy presenting to the ED 08/24 with confusion. Acute confusion Workup reassuring against infection including unremarkable labs, negative UA, vitals stable. VBG and NH3 also wnl. 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 No intracardiac shunt. LDL 45. A1c 5.1. ER physician discussed with vascular and neurology who advised no intervention and continue aspirin. D/w inhouse vascular sx over phone 08/25, he agrees with above and states there is no further recommendation and hence vascular consult was cancelled. Neuro exam unremarkable for focal deficits c/w pt/ot/speech eval. d/w neuro 08/25, c/w DAPT and statin, recs rehab, if condition were to change/re- eval for possible transfer to higher center. Avoid omeprazole while on plavix. Ambulatory dysfunction Reported by patient's Falls precautions PT/OT consults Carotid artery stenosis s/p left endarterectomy Hyperlipidemia/peripheral vascular disease Patient follows with Vascular Surgery and had post op follow up on 08/17 Continue aspirin and atorvastatin BPH: Continue tamsulosin and finasteride DVT Prophylaxis: Hep sc. Code Status: FULL CODE PCP: Dr John Calderon DO Disposition: PT/OT, CM to assist w/ dc plan. Called [phone] to update pt's . ph kept ringing for very long, no answer. will try again likely ivana. Admission and Anticipated Discharge Date Admission Date: August 24, 2024 Subjective Patient was seen and examined at bedside. Patient was sitting up in bed, on room air, NAD, resting comfortably. Per RN, patient is oriented but has some confusion, gradually improving. Patient is eating okay and has moved bowel yesterday. During bedside conversation, patient seemed to recollect events appropriately, patient was holding conversation appropriately, denies any numbness or tingling or weakness of limbs. Patient reports feeling better. Patient is aware that he will is here in the hospital because of his confusion. Physical Exam Physical Exam: General Appearance:Moderately built and nourished, no apparent distress Head: normocephalic, Atraumatic Eyes: normal inspection, EOMI Neck: supple, Trachea midline, + left postsurgical scar healing with some swelling Respiratory/Chest: Normal breath sounds, CTA, No accessory muscle use Cardiovascular: S1, S2, No murmur Abdomen/GI:Soft, Non tender, Bowel sounds present Extremities/Musculoskeletal:normal inspection, no edema Neurologic/Psych:AAOX3, left neck mild numbness, grossly no focal neurological deficits Skin: normal color, warm Results & Data Results & Data Vital Signs (Past 12 Hours) Vital Signs Temp Pulse Pulse Resp BP Pulse Ox O2 Del Method 08/25/24 11:15 36.6 C 70 16 117/69 98 Room Air 08/25/24 07:36 36.7 C 68 18 156/87 H 98 Room Air 08/25/24 07:25 Room Air 08/25/24 05:34 57 L 08/25/24 04:00 36.6 C 66 18 134/75 99 Room Air
[2024-08-25 14:48] LABS: Adenovirus F 40/41 PCR Not Detected (NotDetected); Astrovirus PCR Not Detected (NotDetected); Campylobacter PCR Not Detected (NotDetected); Cryptosporidium PCR Not Detected (NotDetected); Cyclospora cayetanensis PCR Not Detected (NotDetected); Entamoeba histolytica PCR Not Detected (NotDetected); Enteroaggregative E.coli(EAEC) Not Detected (NotDetected); Enteropathogenic E.coli (EPEC) Not Detected (NotDetected); Enterotoxigenic E.coli (ETEC) Not Detected (NotDetected); Giardia lamblia PCR Not Detected (NotDetected); Norovirus GI/GII PCR Not Detected (NotDetected); Plesiomonas shigelloides PCR Not Detected (NotDetected); Rotavirus A PCR Not Detected (NotDetected); Salmonella PCR Not Detected (NotDetected); Sapovirus PCR Not Detected (NotDetected); Shiga-like Toxin E.coli (STEC) Not Detected (NotDetected); Shigella/Enteroinvasive E.coli Not Detected (NotDetected); Vibrio cholerae PCR Not Detected (NotDetected); Vibrio species PCR Not Detected (NotDetected); Yersinia enterocolitica PCR Not Detected (NotDetected)
--- NOTE | 2024-08-25 20:37 | Communication Note ---
Date of Service: August 25, 2024
[2024-08-25] MEDS: PRESERVISION AREDS PO SCH (21:26)
[2024-08-25] MEDS: ACETAMINOPHEN 325 MG TAB PO PRN (21:27)
[2024-08-26 06:45] LABS: Hematocrit (blood only) 41.6 % (42.0-52.0); Hemoglobin 14.2 g/dl (14.0-18.0); Mean Corpuscular Hemoglobin 31.2 pg (25.0-34.0); Mean Corpuscular Hgb Conc 34.1 g/dL (32.0-36.0); Mean Corpuscular Volume 91.4 fL (80.0-100.0); Mean Platelet Volume 10.2 fL (9.4-12.4); Platelet Count 169 K/uL (130-400); RDW Coefficient of Variation 13.1 % (11.5-14.5); RDW Standard Deviation 43.8 fL (36.4-46.3); Red Blood Count 4.55 M/uL (4.70-6.10); White Blood Count 6.78 K/ul (4.8-10.8)
--- NOTE | 2024-08-26 14:56 | Hospitalist Progress Note ---
Date of Service August 26, 2024 Assessment & Plan (1) Acute confusion: (2) Carotid artery stenosis: (3) Dyslipidemia: (4) BPH (benign prostatic hypertrophy): (5) Lumbar disc herniation with radiculopathy: (6) GERD (gastroesophageal reflux disease): (7) Ambulatory dysfunction: Plan 78 year old male with PMH significant for hyperlipidemia, peripheral vascular disease, BPH, lumbar degenerative disc disease, recurrent UTI, and carotid artery stenosis s/p recent endarterectomy presenting to the ED 08/24 with confusion. Acute confusion Workup reassuring against infection including unremarkable labs, negative UA, vitals stable. VBG and NH3 also wnl. 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 No intracardiac shunt. LDL 45. A1c 5.1. ER physician discussed with vascular and neurology who advised no intervention and continue aspirin. D/w inhouse vascular sx over phone 08/25, he agrees with above and states there is no further recommendation and hence vascular consult was cancelled. Neuro exam unremarkable for focal deficits c/w pt/ot/speech eval. recs is OPPT. d/w neuro 08/25, c/w DAPT and statin, recs rehab, if condition were to change/re- eval for possible transfer to higher center. Avoid omeprazole while on plavix. Ambulatory dysfunction Reported by patient's Falls precautions PT/OT consults Carotid artery stenosis s/p left endarterectomy Hyperlipidemia/peripheral vascular disease Patient follows with Vascular Surgery and had post op follow up on 08/17 Continue aspirin and atorvastatin BPH: Continue tamsulosin and finasteride DVT Prophylaxis: Hep sc. Code Status: FULL CODE PCP: Dr John Calderon DO Disposition: PT/OT, CM to assist w/ dc plan. likely dc ivana. Updated pt's over phone at bedside exam. Admission and Anticipated Discharge Date Admission Date: August 24, 2024 Subjective Patient was seen and examined at bedside. Patient was sitting up in chair, on room air, NAD, resting comfortably. Patient is apparently stressed out due to multiple issues at home secondary to ongoing power outage. Patient denies any new weakness or numbness or tingling. Otherwise neurologically patient has been stable. Patient can be discharged home with outpatient physical therapy, patient would like to go home tomorrow. Physical Exam Physical Exam: General Appearance:Moderately built and nourished, no apparent distress Head: normocephalic, Atraumatic Eyes: normal inspection, EOMI Neck: supple, Trachea midline, + left postsurgical scar healing with some swelling Respiratory/Chest: Normal breath sounds, CTA, No accessory muscle use Cardiovascular: S1, S2, No murmur Abdomen/GI:Soft, Non tender, Bowel sounds present Extremities/Musculoskeletal:normal inspection, no edema Neurologic/Psych:AAOX3, left neck mild numbness, grossly no focal neurological deficits Skin: normal color, warm Results & Data Results & Data Vital Signs (Past 12 Hours) Vital Signs Temp Pulse Pulse Pulse Resp BP Pulse Ox 08/26/24 12:07 37.2 C 77 20 123/74 99 08/26/24 08:00 83 08/26/24 07:18 37.2 C 66 20 152/80 H 100 08/26/24 04:00 36.8 C 62 18 143/75 H 98 O2 Del Method 08/26/24 12:07 Room Air 08/26/24 08:00 08/26/24 07:18 Room Air 08/26/24 04:00 Room Air
[2024-08-26] MEDS ORDERED: Nursing to Pharmacy Communication SCH (18:45)
[2024-08-26] MEDS: traMADol HCL 50 MG TABLET PO STA (21:19)
[2024-08-26 23:05] LABS: BUN Creatinine Ratio 23.2 (10-20); Creatinine Clr Calc Pharmacy 81.2 ml/min; Magnesium 1.9 mg/dl (1.7-2.4); Potassium 4.1 mmol/L (3.5-5.1)
[2024-08-26] MEDS: SODIUM CHLORIDE 0.9% 1,000 ML IV ONE (23:36)
[2024-08-26] MEDS: MAGNESIUM SULFATE / D5W 1 GM/100 ML BAG IV ONE (23:38)
[2024-08-26] MEDS: KETOROLAC TROMETHAMINE 15 MG/ML VIAL IV ONE (23:40)
--- NOTE | 2024-08-27 00:10 | CT Scan Report ---
Exam(s): CT HEAD Without Contrast EXAM: CT Head Without Intravenous Contrast CLINICAL HISTORY: Reason for exam: contreras blurred vision. TECHNIQUE: Axial computed tomography images of the head/brain without intravenous contrast. CTDI is 35.65 mGy and DLP is 625.8 mGy-cm. Automated exposure control was utilized for the study. A dose lowering technique was utilized adhering to the principles of ALARA. COMPARISON: Prior brain MRI from August 24, 2024. FINDINGS: Brain: Unremarkable. No hemorrhage. Advanced nonspecific white matter changes. No edema. Ventricles: Mild ventriculomegaly. Bones/joints: Unremarkable. No acute fracture. Soft tissues: Unremarkable. Sinuses: Unremarkable as visualized. No acute sinusitis. Mastoid air cells: Unremarkable as visualized. No mastoid effusion. IMPRESSION: No evidence of acute intracranial pathology. Electronically signed by: Jyothi Lorenzo MD 08/27/24 00:09 AM
[2024-08-27] MEDS ORDERED: Nursing to Pharmacy Communication SCH (08:45)
[2024-08-27] MEDS ORDERED: traMADol HCL 50 MG TABLET PO PRN (08:48)
[2024-08-27 10:08] LABS: Appearance Urine Clear (Clear); Bilirubin Urine Negative (Negative); Blood Urine Negative (Negative); Color Urine Yellow; Glucose Urine UA Negative (Negative); Ketones Urine Negative (Negative); Leukocyte Esterase Urine Negative (Negative); Nitrite Urine Negative (Negative); Protein Urine Negative (Negative); Specific Gravity Urine 1.011 (1.000-1.030); Urobilinogen Urine Negative (Negative)
[2024-08-27] MEDS: PRESERVISION AREDS PO SCH (13:05)
--- NOTE | 2024-08-27 15:04 | Hospitalist Progress Note ---
Date of Service August 27, 2024 Assessment & Plan (1) Acute confusion: (2) Carotid artery stenosis: (3) Dyslipidemia: (4) BPH (benign prostatic hypertrophy): (5) Lumbar disc herniation with radiculopathy: (6) GERD (gastroesophageal reflux disease): (7) Ambulatory dysfunction: Plan 78 year old male with PMH significant for hyperlipidemia, peripheral vascular disease, BPH, lumbar degenerative disc disease, recurrent UTI, and carotid artery stenosis s/p recent endarterectomy presenting to the ED 08/24 with confusion. Acute confusion Workup reassuring against infection including unremarkable labs, negative UA, vitals stable. VBG and NH3 also wnl. 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 No intracardiac shunt. LDL 45. A1c 5.1. ER physician discussed with vascular and neurology who advised no intervention and continue aspirin. D/w inhouse vascular sx over phone 08/25, he agrees with above and states there is no further recommendation and hence vascular consult was cancelled. Neuro exam unremarkable for focal deficits c/w pt/ot/speech eval. recs is OPPT. d/w neuro 08/25, c/w DAPT and statin, recs rehab, if condition were to change/re- eval for possible transfer to higher center. Avoid omeprazole while on plavix. Ambulatory dysfunction Reported by patient's Falls precautions PT/OT consults Carotid artery stenosis s/p left endarterectomy Hyperlipidemia/peripheral vascular disease Patient follows with Vascular Surgery and had post op follow up on 08/17 Continue aspirin and atorvastatin BPH: Continue tamsulosin and finasteride DVT Prophylaxis: Hep sc. Code Status: FULL CODE PCP: Dr John Calderon DO Disposition: PT/OT, CM to assist w/ dc plan. likely dc ivana. Pt reports issues not sorted out at home and would like to go home ivana. Admission and Anticipated Discharge Date Admission Date: August 24, 2024 Subjective Patient was seen and examined at bedside. Patient was sitting up in chair, on room air, NAD, resting comfortably. Patient reporting some burning while passing urine, UA came out negative for UTI, patient encouraged to drink more fluid. Patient denies any new weakness or numbness or tingling. Otherwise neurologically patient has been stable. Patient reported some headache while lying in the bed, and thinks it is likely due to bad position, reports significant improvement in headache/back of the head and neck after getting up in chair. Physical Exam Physical Exam: General Appearance:Moderately built and nourished, no apparent distress Head: normocephalic, Atraumatic Eyes: normal inspection, EOMI Neck: supple, Trachea midline, + left postsurgical scar healing with some swe lling Respiratory/Chest: Normal breath sounds, CTA, No accessory muscle use Cardiovascular: S1, S2, No murmur Abdomen/GI:Soft, Non tender, Bowel sounds present Extremities/Musculoskeletal:normal inspection, no edema Neurologic/Psych:AAOX3, left neck mild numbness, grossly no focal neurological deficits Skin: normal color, warm Results & Data Results & Data Vital Signs (Past 12 Hours) Vital Signs Temp Pulse Pulse Resp BP BP Pulse Ox 08/27/24 11:21 36.5 C 71 18 115/68 98 08/27/24 08:00 62 08/27/24 07:52 36.4 C L 70 16 151/77 H 100 O2 Del Method 08/27/24 11:21 Room Air 08/27/24 08:00 08/27/24 07:52 Room Air
[2024-08-27] MEDS ORDERED: PRESERVISION AREDS PO SCH (17:00)
[2024-08-27] MEDS: DICLOFENAC SOD 1% GEL 100 GM TUBE EXT SCH (18:05)
[2024-08-28 06:28] LABS: Hemoglobin 14.3 g/dl (14.0-18.0); Mean Corpuscular Hemoglobin 31.4 pg (25.0-34.0); Mean Corpuscular Volume 92.3 fL (80.0-100.0); Mean Platelet Volume 10.3 fL (9.4-12.4); Platelet Count 177 K/uL (130-400); RDW Coefficient of Variation 13.3 % (11.5-14.5); RDW Standard Deviation 45.2 fL (36.4-46.3); Red Blood Count 4.55 M/uL (4.70-6.10); White Blood Count 7.72 K/ul (4.8-10.8)
[2024-08-28 07:39] VITALS: RESP 18
[2024-08-28 10:46] VITALS: TEMP 97.7; O2SAT 100
--- NOTE | 2024-08-28 11:58 | Discharge Summary ---
Date of Service August 28, 2024 Admission HPI Per Admitting Provider 78 year old male with PMH significant for hyperlipidemia, peripheral vascular disease, GERD, BPH, lumbar degenerative disc disease, recurrent UTI, and carotid artery stenosis s/p recent endarterectomy presenting to the ED today with confusion. He was recently admitted on 07/28/24 at [facility] for left endarterectomy due to 90% occlusion the LICA and was discharged on 07/30/24. He is a poor historian but his is at bedside with him. She reports that since his surgery, he has had days where he is alert and clear and other days where he is confused and doesn't know what is going on. She states he is still able to take care of himself and always remembers who she is. The patient reports that he didn't feel right this morning and notes numbness at his incision site on his left neck. He does not know when this numbness started. He also reports difficulty swallowing and his notes that this started after the surgery. He denies fevers, chills, chest pain, SOB, abdominal pain, N/V, dysuria, weakness. He notes diarrhea but also reports that he has been taking Miralax. His notes that he is not able to get around easily and has a cane that he doesn't use. She doesn't think that he had any falls recently but notes that he may have bumped into something last night. Admission Exam Per Admitting Provider General Appearance:Moderately built and nourished, no apparent distress Head: normocephalic, Atraumatic Eyes: normal inspection, EOMI Neck: supple, Trachea midline, + left postsurgical scar healing with some swelling Respiratory/Chest: Normal breath sounds, CTA, No accessory muscle use Cardiovascular: S1, S2, No murmur Abdomen/GI:Soft, Non tender, Bowel sounds present Extremities/Musculoskeletal:normal inspection, no edema Neurologic/Psych:AAOX3, left neck mild numbness, grossly no focal neurological deficits Skin: normal color, warm Principal Diagnosis Acute confusion 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 Ambulatory dysfunction Discharge Exam General Appearance:Moderately built and nourished, no apparent distress Head: normocephalic, Atraumatic Eyes: normal inspection, EOMI Neck: supple, Trachea midline, + left postsurgical scar healing with some s welling Respiratory/Chest: Normal breath sounds, CTA, No accessory muscle use Cardiovascular: S1, S2, No murmur Abdomen/GI:Soft, Non tender, Bowel sounds present Extremities/Musculoskeletal:normal inspection, no edema Neurologic/Psych:AAOX3, left neck mild numbness, grossly no focal neurological deficits Skin: normal color, warm Discharge Data Allergies Allergy/AdvReac Type Severity Reaction Status Date / Time doxycycline Allergy Tongue Verified 05/11/24 10:39 Swelling/Upset Stomach/Muscle Aches celecoxib [From Celebrex] AdvReac Intermediate Diarrhea Verified 05/11/24 10:39 duloxetine AdvReac Intermediate Chest Verified 05/11/24 10:39 tightness, diarrhea gabapentin AdvReac Intermediate dried out Verified 05/11/24 10:39 tear ducts omeprazole AdvReac Intermediate constipatio Verified 05/11/24 10:39 n pregabalin [From Lyrica] AdvReac Intermediate dried out Verified 05/11/24 10:39 tear ducts sulfamethoxazole AdvReac Intermediate constipatio Verified 05/11/24 10:39 [From Bactrim] n trimethoprim [From Bactrim] AdvReac Intermediate constipatio Verified 05/11/24 10:39 n goats milk Allergy Swelling Uncoded 05/11/24 10:39 of Lip/Tongue/Throat Consultations 08/24/24 12:43 ED Decision to Admit Stat 08/24/24 15:19 Consult Neurology Routine Ordered Studies 08/24/24 09:12 CT head/brain wo con Stat CTA head w con [CT angio head w con] Stat CTA neck with con [CT angio neck with con] Stat 08/24/24 13:18 MRI Brain [MR brain wo/w con] Urgent 08/26/24 21:10 CT head/brain wo con Stat Hospital Course (1) Acute confusion: (2) Carotid artery stenosis: (3) Dyslipidemia: (4) BPH (benign prostatic hypertrophy): (5) Lumbar disc herniation with radiculopathy: (6) GERD (gastroesophageal reflux disease): (7) Ambulatory dysfunction: Plan 78 year old male with PMH significant for hyperlipidemia, peripheral vascular disease, BPH, lumbar degenerative disc disease, recurrent UTI, and carotid artery stenosis s/p recent endarterectomy presenting to the ED 08/24 with confusion. He was managed for the following: Acute confusion Workup reassuring against infection including unremarkable labs, negative UA, vitals stable. VBG and NH3 also wnl. 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 No intracardiac shunt. LDL 45. A1c 5.1. ER physician discussed with vascular and neurology who advised no intervention and continue aspirin. D/w inhouse vascular sx over phone 08/25, he agrees with above and states there is no further recommendation and hence vascular consult was cancelled. Neuro exam unremarkable for focal deficits c/w pt/ot/speech eval. recs is OPPT. Script provided. d/w neuro 08/25, c/w DAPT and statin, recs rehab, if condition were to change/re- eval for possible transfer to higher center. Pt has been neurologically stable. Avoid omeprazole while on plavix. Ambulatory dysfunction Reported by patient's Falls precautions PT/OT consults Carotid artery stenosis s/p left endarterectomy Hyperlipidemia/peripheral vascular disease Patient follows with Vascular Surgery and had post op follow up on 08/17 Continue aspirin and atorvastatin BPH: Continue tamsulosin and finasteride DVT Prophylaxis: Hep sc. Code Status: FULL CODE PCP: Dr John Calderon DO Disposition: PT/OT, CM to assist w/ dc plan. likely dc ivana. Patient is being discharged to home with outpatient physical therapy with following instructions at the point of discharge: Follow-up with your primary care physician within a week time and likely you will need labs CBC/CMP/magnesium/phosphorus. Follow-up with neurology in 1 to 2 weeks time upon discharge. Continue with Plavix for total of 21 days [first dose was 08/25/24], avoid omeprazole while on Plavix. Follow-up with vascular surgery in 2 to 4 weeks time upon discharge. As discussed at the bedside, recommend you follow-up with your PCP for age- appropriate cancer screening. Take your medications as prescribed. Please make sure that you are able to get your medications today by calling your pharmacy before you leave the hospital so that your treatment continuity is not broken. Home Health Attestation I certify that this patient is under my care and that I, or a physicians ass istant working with me, had a face to-face encounter that meets the home health [id number] encounter requirements with this patient. The encounter with the patient was in whole, or in part, for the following medical condition, which is the primary reason for home health care (list medical condition): I certify that, based on my findings, the following services are medically necessary home health services: My clinical findings support the need for the above services because: Further, I certify that my clinical findings support that this patient is homebound (i.e. absences from home require considerable and taxing effort and are for medical reasons or nondenominational services or infrequently or of short duration when for other reasons) because: Certification for Home Health Services: Based on the above findings, I certify that this patient is confined to the home and needs intermittent fdc care, physical therapy and/or speech therapy or continues to need occupational therapy. The patient is under my care, and I have initiated the establishment of the plan of care. This patient will be followed by a physician who will periodically review the plan of care. 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 Non-emergency contact: Primary Care Provider Call non-emergency contact if: you have any medication questions and your symptoms worsen Follow-up/Referrals: John Calderon, [Primary Care Provider] - Diet: Heart Healthy Addtl Attending Provider Instructions: Follow-up with your primary care physician within a week time and likely you will need labs CBC/CMP/magnesium/phosphorus. Follow-up with neurology in 1 to 2 weeks time upon discharge. Continue with Plavix for total of 21 days [first dose was 08/25/24], avoid omeprazole while on Plavix. Follow-up with vascular surgery in 2 to 4 weeks time upon discharge. As discussed at the bedside, recommend you follow-up with your PCP for age- appropriate cancer screening. Take your medications as prescribed. Please make sure that you are able to get your medications today by calling your pharmacy before you leave the hospital so that your treatment continuity is not broken. Pending Studies at Discharge: No Stand-Alone Forms: My [employer], Smoking Cessation Medications and DC Order Prescriptions: New clopidogrel 75 mg Tablet 75 mg PO QAM 17 Days Qty: 17 0RF diclofenac sodium [Voltaren Arthritis Pain] 1 % Gel 2 g EXT Q6H PRN (Reason: right great toe pain) Qty: 50 0RF Continued montelukast [Singulair] 10 mg tablet 10 mg PO QPM finasteride [Proscar] 5 mg tablet 5 mg PO QAM tamsulosin 0.4 mg capsule 0.4 mg PO QPM Patient Comments: takes after dinner PreserVision AREDS-2 250-90-40-1 mg Tablet,Chewable 1 tab PO BID atorvastatin 40 mg Tablet 40 mg PO QAM Qty: 30 0RF carboxymethylcellulose sodium [Refresh] 1 % Drops, Liquid Gel 2 drp OPB QID acetaminophen [Tylenol Arthritis Pain] 650 mg Tablet Extended Release 1,300 mg PO HS polyethylene glycol 3350 [Miralax] 17 gram powder in packet 17 g PO DAILY PRN (Reason: Constipation) Rx Instructions: Unable to verify OTC meds at this date/time. aspirin 81 mg tablet,delayed release (DR/EC) 81 mg PO QAM Discharge Orders: Discharge Order (Routine); Ordered 08/28/24 Ordered By: Lizzette Post Admission Data Admit Date/Time: 08/24/24 13:29 Attending Provider: Lizzette Post Admit Provider: Emory Yee Primary Care Provider: John Calderon Other Providers: Emory Yee; Romel Mcdonald
[2024-08-28 12:26] VITALS: BP 132/77; PULSE 77
== END 2024-08-28 15:01 | disposition home or self-care (01) | DRG 93 ==
LOC: ED 08:42 → 2N 13:29 → SUATTDRO 13:29 → 2N 14:59